=== PATIENT | female | born 1940 | race Caucasian/White ===

== ENCOUNTER 2017-10-07 10:25 | Inpatient (IN) | payer BC, OTHER ==
[2017-10-07] MEDS ORDERED: morphine CARPU-JECT 4 MG/1 ML DISP.SYRIN IVPUSH ONE ×2 (11:23→14:10)
--- NOTE | 2017-10-07 11:31 | PDOC ---
History of Present Illness - General Chief Complaint: Pain Stated Complaint: HIP PAIN Time Seen by Provider: 10/07/17 10:46 History Source: Patient, Spouse - History of Present Illness Occurred: reports: this morning Lower Extremity Pain Location: right: hip Method of Injury: Yes: fell Past History - Past Medical History Allergies/Adverse Reactions: Allergies Allergy/AdvReac Type Severity Reaction Status Date / Time No Known Allergies Allergy Verified 11/09/15 10:30 Home Medications: Ambulatory Orders Aspirin [ASA -] 81 mg PO DAILY 08/16/15 Baclofen 10 mg PO BID 08/16/15 Simvastatin [Zocor -] 40 mg PO DAILY 08/16/15 Diazepam [Valium] 5 mg PO BID PRN 08/18/15 Teriflunomide [Aubagio] 7 mg PO DAILY 08/18/15 Calcium Citrate/Vitamin D3 [Citracal + D Caplet] 1 each PO DAILY 11/09/15 Cholecalciferol (Vitamin D3) [D3 Dots] 2,000 unit PO DAILY 11/09/15 Duloxetine HCl [Cymbalta] 60 mg PO DAILY 11/09/15 Ibuprofen [Advil -] 200 mg PO TID PRN 11/09/15 Ibuprofen/Diphenhydramine Cit [Advil Pm Caplet] 2 each PO HS PRN 11/09/15 COPD: No Other medical history: MS - Surgical History Orthopedic Surgery: Yes (bilater total hip) - Suicide/Smoking/Psychosocial Hx Smoking History: Former smoker Have you smoked in the past 12 months: No Number of Cigarettes Smoked Daily: 2 Information on smoking cessation initiated: No 'Breaking Loose' booklet given: 11/09/15 Hx Alcohol Use: No Drug/Substance Use Hx: No Substance Use Type: None Review of Systems - Review of Systems Constitutional: No: Chills, Fever Respiratory: No: Shortness of Breath Cardiac (ROS): No: Chest Pain, Lightheadedness, Palpitations, Syncope ABD/GI: No: Nausea, Vomiting Musculoskeletal: Yes: Joint Pain, Other (RLE externally rotated and shortened, NVI) Neurological: No: Headache, Dizziness *Physical Exam - Vital Signs Last Vital Signs Temp Pulse Resp BP Pulse Ox 96.3 F L 109 H 20 89/51 97 10/07/17 10:48 10/07/17 10:48 10/07/17 10:48 10/07/17 10:48 10/07/17 10:48 ED Treatment Course - LABORATORY CBC & Chemistry Diagram: 10/07/17 11:50 10/07/17 11:50 - RADIOLOGY Radiology Studies Ordered: Category Date Time Status HEAD CT WITHOUT CONTRAST [CT] Stat CT Scan 10/07/17 11:23 Ordered HIP & PELVIS-LEFT [RAD] Stat Radiology 10/07/17 11:23 Ordered HIP & PELVIS-RIGHT [RAD] Stat Radiology 10/07/17 11:23 Ordered SPINE-LUMBAR SACRAL [RAD] Stat Radiology 10/07/17 11:24 Ordered Medical Decision Making - Medical Decision Making 10/07/17 11:24 76 yo F, h/o MS, HTN, on asa, s/p R THR C/B prosthetic dislocation in 2014, here w/ 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 Pt states while reaching for her walker this am, she lost balance and fell, striking head and injuring R hip, unable to bear weight since. No LOC, ACHARYA, dizziness, n/v/ Denies any other injuries. 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 Patient's last hemoglobin on file from 2014 was 12. Will guaiac and thomason-scan rule out bleed in setting of fall. O+ on T&S. Will transfuse 2 units per ED attg. No h/o CHF. 10/07/17 13:38 Significant displaced fracture of R mid femur on x-ray. Dr. De Paz of ortho aware and will come see patient 10/07/17 13:52 CT head, chest, abdomen and pelvis revealed no evidence of bleed. Patient evaluated by ortho whose post plan is to take patient to the OR for ORIF once patient is medically cleared. Unable to guaiac at this time as positioning difficult given significant RLE pain despite morphine. Will discuss case with hospitalist and admit 10/07/17 14:05 10/07/17 14:52 Dr. Nice in ED evaluating patient, pt admitted *DC/Admit/Observation/Transfer Diagnosis at time of Disposition: Fall Qualifiers: Encounter type: initial encounter Qualified Code(s): W19.XXXA - Unspecified fall, initial encounter Femoral fracture Qualifiers: Encounter type: initial encounter Femur location: shaft Fracture type: closed Fracture morphology: transverse Fracture alignment: displaced Laterality: right Qualified Code(s): S72.321A - Displaced transverse fracture of shaft of right femur, initial encounter for closed fracture Anemia Qualifiers: Anemia type: unspecified type Qualified Code(s): D64.9 - Anemia, unspecified - Discharge Dispostion Condition at time of disposition: Fair Admit: Yes - Referrals Referrals: Baldo Delcid MD [Primary Care Provider] - - Patient Instructions - Post Discharge Activity
[2017-10-07] MEDS ORDERED: SODIUM CHLORIDE 500 ML IV STA (11:36)
[2017-10-07] MEDS ORDERED: MORPHINE SULFATE 10 MG/1 ML *VIAL ONE ×2 (11:57→14:17)
[2017-10-07 12:09] LABS: BASO % 0.5 % (0-2.0); HEMATOCRIT 12.6 % (32.4-45.2); LYMPH % 4.1 % (8-40); MCH 21.7 pg (25.7-33.7); MCHC 30.6 g/dl (32.0-36.0); MEAN CELL VOLUME 70.9 fl (80-96); MEAN PLT VOLUME 7.6 fl (7.5-11.1); MONO % 5.7 % (3.8-10.2); NEUT % 89.7 % (42.8-82.8); PLATELET COUNT 246 K/MM3 (134-434); RBC 1.78 M/mm3 (3.60-5.2); RDW 17.4 % (11.6-15.6); WHITE BLOOD COUNT 17.1 K/mm3 (4.0-10.0)
[2017-10-07 12:16] LABS: ADD RBC MORPHOLOGY YES
[2017-10-07 12:17] LABS: HEMOGLOBIN 3.9 GM/dL (10.7-15.3)
[2017-10-07 12:34] LABS: ALBUMIN 3.2 g/dl (3.4-5.0); ALK PHOS 58 U/L (45-117); ANION GAP 12 (8-16); BILIRUBIN,TOTAL 0.4 mg/dL (0.2-1.0); BLOOD UREA NITROGEN 53 mg/dL (7-18); CALCIUM 8.2 mg/dL (8.5-10.1); CHLORIDE 106 mmol/L (98-107); CO2 20 mmol/L (21-32); GLUCOSE,RANDOM 116 mg/dL (74-106); POTASSIUM 5.1 mmol/L (3.5-5.1); SGOT/AST 22 U/L (15-37); SGPT/ALT 23 U/L (12-78); SODIUM 138 mmol/L (136-145); TOT PROT 5.6 g/dl (6.4-8.2)
[2017-10-07 12:36] LABS: INR 1.05 (0.82-1.09); PROTHROMBIN TIME (PATIENT) 11.9 SEC (9.98-11.88)
--- NOTE | 2017-10-07 13:45 | CONSULT ---
Consult - text type - Consultation Consultation Note: full consult dictated Imp; right periprosthetic femur fx plan: --> OR for ORIF when medically cleared
[2017-10-07 13:57] LABS: URINE APPEARANCE CLOUDY; URINE BILIRUBIN NEGATIVE (NEGATIVE); URINE BLOOD NEGATIVE (NEGATIVE); URINE COLOR DKYELLOW; URINE GLUCOSE (UA) NEGATIVE (NEGATIVE); URINE KETONE TRACE (NEGATIVE); URINE LEUK ESTERASE NEGATIVE (NEGATIVE); URINE NITRITE NEGATIVE (NEGATIVE); URINE PROTEIN NEGATIVE (NEGATIVE); URINE UROBILINOGEN NEGATIVE mg/dL (0.2-1.0)
--- NOTE | 2017-10-07 14:44 | CONS ---
DATE OF CONSULTATION: 10/07/2017 Patient well known to me status post right total hip replacement done by another surgeon about 5 years ago, had a dislocated hip a few years ago which was reduced in our emergency room. Patient slipped and fell and injured her right femur, is complaining of pain and inability to walk, with swelling. On physical exam she has a great deal of swelling and obvious deformity of her right thigh, increased pain with any motion of her thigh. Good motion of the ankle and toes, otherwise neurovascularly intact. X-rays show a long oblique periprosthetic fracture of the midaspect of the femoral shaft. The femoral component appears to be well seated. IMPRESSION: Right femoral periprosthetic femoral shaft fracture with an intact component. PLAN: Risks, benefits, and alternatives discussed with patient and with in great detail. Patient will need open reduction, internal fixation of this fracture. As patient's hematocrit was only 12, patient needs to be tuned up prior to surgery with blood, hydration. Once cleared, we will book the patient for ORIF. JUAN DAVID POWELL M.D. [id number]
[2017-10-07 16:26] LABS: HEMOGLOBIN 8.5 GM/dL (10.7-15.3); MCHC 32.6 g/dl (32.0-36.0); MEAN CELL VOLUME 79.8 fl (80-96); MEAN PLT VOLUME 7.7 fl (7.5-11.1); PLATELET COUNT 213 K/MM3 (134-434); RBC 3.26 M/mm3 (3.60-5.2); RDW 18.4 % (11.6-15.6); WHITE BLOOD COUNT 16.7 K/mm3 (4.0-10.0)
--- NOTE | 2017-10-07 17:05 | HP ---
PCP: Baldo Delcid CHIEF COMPLAINT: Right hip and groin pain HISTORY OF PRESENT ILLNESS: This is a 76 year old woman who comes to the ER complaining of pain in her right hip and right groin. She says she fell at home 2 days ago landing on her back. She denies head trauma, loss of consciousness, but she does not remember much about the event. She had some low back pain and needed her 's assistance to get up. Since then, she has developed pain in her right hip and groin. She usually ambulates with a walker. In the ED, she was found to have a periprosthetic right femur fracture and hemoglobin 3.9. She takes baby aspirin daily and uses occasional ibuprofen. She denies melena, rectal bleeding. She has lost 10 lbs over the last year. PAST MEDICAL HISTORY: Multiple sclerosis, HTN, hyperlipidemia, depression, anxiety PAST SURGICAL HISTORY: Right total hip replacement Allergies No Known Allergies Allergy (Verified 11/09/15 10:30) HOME MEDICATIONS: Home Medications Medication Instructions Recorded Aspirin [ASA -] 81 mg PO DAILY 08/16/15 Baclofen 10 mg PO BID 08/16/15 Simvastatin [Zocor -] 40 mg PO DAILY 08/16/15 Diazepam [Valium] 5 mg PO BID PRN 08/18/15 Teriflunomide [Aubagio] 7 mg PO DAILY 08/18/15 Calcium Citrate/Vitamin D3 1 each PO DAILY 11/09/15 [Citracal + D Caplet] Cholecalciferol (Vitamin D3) [D3 2,000 unit PO DAILY 11/09/15 Dots] Duloxetine HCl [Cymbalta] 60 mg PO DAILY 11/09/15 Ibuprofen [Advil -] 200 mg PO TID PRN 11/09/15 Ibuprofen/Diphenhydramine Cit 2 each PO HS PRN 11/09/15 [Advil Pm Caplet] Social History: Smoking: Smokes 3 cigarettes/day Alcohol: Denies Drugs: Denies Recent Travel: None Family History: Non-contributory REVIEW OF SYSTEMS CONSTITUTIONAL: Absent: fever, chills, diaphoresis, generalized weakness, malaise, loss of appetite, weight change HEENT: Absent: rhinorrhea, nasal congestion, throat pain, throat swelling, difficulty swallowing, mouth swelling, ear pain, eye pain, visual changes CARDIOVASCULAR: Absent: chest pain, syncope, palpitations, lightheadedness, peripheral edema RESPIRATORY: Absent: cough, shortness of breath, dyspnea with exertion, orthopnea, wheezing, stridor, hemoptysis GASTROINTESTINAL: Absent: abdominal pain, abdominal distension, nausea, vomiting , diarrhea, constipation, melena, hematochezia GENITOURINARY: Absent: dysuria, frequency, urgency, hesitancy, hematuria, flank pain MUSCULOSKELETAL: Present: Right hip pain, right groin pain. Absent: myalgia, joint swelling, back pain, neck pain SKIN: Absent: rash, itching, pallor HEMATOLOGIC/IMMUNOLOGIC: Absent: easy bleeding, easy bruising, lymphadenopathy, frequent infections ENDOCRINE: Present: unexplained weight loss. Absent: unexplained weight gain, heat intolerance, cold intolerance NEUROLOGIC: Absent: headache, focal weakness or paresthesias, dizziness, unsteady gait, seizure, mental status changes, bladder or bowel incontinence PSYCHIATRIC: Absent: anxiety, depression, suicidal or homicidal ideation, hallucinations. PHYSICAL EXAMINATION Vital Signs - 24 hr 10/07/17 10/07/17 10/07/17 10:48 13:36 13:40 Temperature 96.3 F L 98.7 F Pulse Rate 109 H Pulse Rate [ 101 H 104 H Apical] Respiratory 20 16 12 Rate Blood Pressure 89/51 Blood Pressure 99/51 99/51 [Right Arm] O2 Sat by Pulse 97 95 Oximetry (%) 10/07/17 16:21 Temperature Pulse Rate Pulse Rate [ 95 H Apical] Respiratory 16 Rate Blood Pressure Blood Pressure 105/46 [Right Arm] O2 Sat by Pulse 100 Oximetry (%) GENERAL: Awake, alert, and fully oriented, in no acute distress, pale, generalized muscle wasting. HEAD: Normal with no signs of trauma. EYES: Pupils equal, round and reactive to light, extraocular movements intact, sclerae anicteric, conjunctivae pale. EARS, NOSE, THROAT: Ears normal, nares patent, oropharynx clear without exudates. Moist mucous membranes. NECK: Normal range of motion, supple without lymphadenopathy, JVD, or masses. LUNGS: Breath sounds equal, clear to auscultation bilaterally. No wheezes, and no crackles. No accessory muscle use. HEART: Tachycardic, normal S1 and S2 without murmur, rub or gallop. ABDOMEN: Soft, nontender, not distended, normoactive bowel sounds, no guarding, no rebound, no masses. No hepatomegaly or splenomegaly. MUSCULOSKELETAL: Right leg shortened and externally rotated. No CVA tenderness. UPPER EXTREMITIES: 2+ pulses, warm, well-perfused. No cyanosis. No clubbing. No peripheral edema. LOWER EXTREMITIES: 2+ pulses, warm, well-perfused. No calf tenderness. No peripheral edema. NEUROLOGICAL: Cranial nerves II-XII intact. Normal speech. Normal gait. PSYCHIATRIC: Cooperative. Good eye contact. Appropriate mood and affect. SKIN: Warm, dry, normal turgor, no rashes or lesions noted, normal capillary refill. Laboratory Results - last 24 hr 10/07/17 10/07/17 10/07/17 11:22 11:50 11:50 WBC 17.1 H D RBC 1.78 L D Hgb 3.9 L* D Hct 12.6 L MCV 70.9 L MCH 21.7 L MCHC 30.6 L RDW 17.4 H D Plt Count 246 MPV 7.6 Neutrophils % 89.7 H D Lymphocytes % 4.1 L D Monocytes % 5.7 Eosinophils % 0.0 D Basophils % 0.5 PT with INR INR Sodium 138 Potassium 5.1 Chloride 106 Carbon Dioxide 20 L Anion Gap 12 BUN 53 H Creatinine 2.0 H Creat Clearance w eGFR 24.29 Random Glucose 116 H Calcium 8.2 L Total Bilirubin 0.4 AST 22 ALT 23 Alkaline Phosphatase 58 Total Protein 5.6 L Albumin 3.2 L Urine Color Urine Appearance Urine pH Ur Specific [place] Urine Protein Urine Glucose (UA) Urine Ketones Urine Blood Urine Nitrite Urine Bilirubin Urine Urobilinogen Ur Leukocyte Esterase Blood Type O POSITIVE Antibody Screen Negative Crossmatch See Detail 10/07/17 10/07/17 11:50 11:50 WBC RBC Hgb Hct MCV MCH MCHC RDW Plt Count MPV Neutrophils % Lymphocytes % Monocytes % Eosinophils % Basophils % PT with INR 11.90 H INR 1.05 Sodium Potassium Chloride Carbon Dioxide Anion Gap BUN Creatinine Creat Clearance w eGFR Random Glucose Calcium Total Bilirubin AST ALT Alkaline Phosphatase Total Protein Albumin Urine Color Dkyellow Urine Appearance Cloudy Urine pH 5.0 Ur Specific [place] 1.020 Urine Protein Negative Urine Glucose (UA) Negative Urine Ketones Trace H Urine Blood Negative Urine Nitrite Negative Urine Bilirubin Negative Urine Urobilinogen Negative Ur Leukocyte Esterase Negative Blood Type Antibody Screen Crossmatch Chest x-ray: No acute pathology. Head CT: Moderate atrophy. Moderate soft tissue swelling/hematoma over left zygomatic arch and left lateral aspect of the cheek without fracture. CT chest/abdomen/pelvis: Mild COPD. ASSESSMENT/PLAN: This is a 76 year old woman with a history of MS, HTN, hyperlipidemia, depression, anxiety who presents to the ED today with right hip and right groin pain 2 days after a fall at home. She was found to have a periprosthetic right femur fracture, hemoglobin 3.9, BUN 53, creatinine 2.0. 1. Periprosthetic right femur fracture - Orthopedic surgery consult appreciated - Will need ORIF - Transfuse - Hold aspirin, ibuprofen - Pain control 2. Severe microcytic anemia with unexplained weight loss - Transfuse PRBCs prior to surgery - Check iron studies - Check stool occult blood - Hold aspirin, ibuprofen - Start Protonix - Will need GI evaluation 3. Acute kidney injury - Likely secondary to hypoperfusion - IV fluid, transfuse PRBCs - Hold ibuprofen - Monitor BUN, creatinine 4. Hypertension - On no medication 5. Hyperlipidemia - Continue Zocor 6. Multiple sclerosis - Continue Aubagio, Baclofen 7. Depression/anxiety - Continue Valium, Cymbalta
[2017-10-07] MEDS ORDERED: ACETAMINOPHEN 325 MG TABLET (FP) PO PRN (17:11)
[2017-10-07] MEDS ORDERED: ONDANSETRON 4 MG/2 ML VIAL IVPUSH PRN (17:11)
[2017-10-07] MEDS ORDERED: diazePAM 5 MG TABLET PO PRN (17:23)
[2017-10-07] MEDS: SODIUM CHLORIDE 1,000 ML IV SCH (17:51)
[2017-10-07] MEDS ORDERED: PANTOPRAZOLE 40 MG TABLET (FP) ONE (20:51)
[2017-10-07] MEDS ORDERED: ATORVASTATIN CA 40 MG TABLET (FP) ONE (20:51)
[2017-10-07] MEDS ORDERED: BACLOFEN 10 MG TABLET (FP) ONE (20:51)
[2017-10-07 20:59] LABS: ANISOCYTOSIS 3+; MACROCYTOSIS 1+; OVALOCYTE 1+
[2017-10-07 21:00] LABS: PLATELET ESTIMATE ADEQUATE; TOXIC GRANULATION 1+
[2017-10-07] MEDS: BACLOFEN 10 MG TABLET (FP) PO SCH (21:17)
[2017-10-07] MEDS: ATORVASTATIN CA 20 MG TABLET (FP) PO SCH (21:17)
[2017-10-07] MEDS: PANTOPRAZOLE 40 MG TABLET (FP) PO SCH (21:17)
[2017-10-07] MEDS: MORPHINE SULFATE 10 MG/1 ML *VIAL IVPUSH PRN (23:38)
[2017-10-08 00:19] VITALS: BMI 16.5
[2017-10-08 08:48] LABS: BASO % 0.5 % (0-2.0); EOS % 0.2 % (0-4.5); HEMATOCRIT 23.1 % (32.4-45.2); HEMOGLOBIN 7.5 GM/dL (10.7-15.3); LYMPH % 6.5 % (8-40); MCH 25.8 pg (25.7-33.7); MCHC 32.6 g/dl (32.0-36.0); MEAN CELL VOLUME 79.2 fl (80-96); MEAN PLT VOLUME 7.8 fl (7.5-11.1); MONO % 10.6 % (3.8-10.2); NEUT % 82.2 % (42.8-82.8); PLATELET COUNT 190 K/MM3 (134-434); RBC 2.92 M/mm3 (3.60-5.2); RDW 17.9 % (11.6-15.6); WHITE BLOOD COUNT 12.9 K/mm3 (4.0-10.0)
[2017-10-08 09:04] LABS: ANION GAP 10 (8-16); BLOOD UREA NITROGEN 43 mg/dL (7-18); CALCIUM 7.9 mg/dL (8.5-10.1); CHLORIDE 111 mmol/L (98-107); CO2 22 mmol/L (21-32); CREATININE 1.2 mg/dL (0.55-1.02); GLUCOSE,RANDOM 85 mg/dL (74-106); POTASSIUM 4.3 mmol/L (3.5-5.1); SODIUM 143 mmol/L (136-145)
[2017-10-08] MEDS ORDERED: [UNRECOGNIZED DRUG - OTHER] PO SCH (10:00)
[2017-10-08] MEDS ORDERED: VITAMIN D3 PO SCH (10:00)
[2017-10-08] MEDS ORDERED: CALCIUM CITRATE PO SCH (10:00)
--- NOTE | 2017-10-08 10:00 | PN ---
Physical Exam: SUBJECTIVE: Patient seen and examined OBJECTIVE: hmg/hct recheck @ 12p : 6.6/20.1, 2 unit of prbc ordered given 1 units of platelets for chronic home ASA use No physical signs of hematoma on skin Vital Signs Period Temp Pulse Resp BP Sys/Obrien Pulse Ox Last 24 Hr 96.3 F-98.7 F 89-109 12-20 89-120/44-63 95-100 GENERAL: The patient is awake, alert, and fully oriented, in no acute distress. HEAD: Normal with no signs of trauma. EYES: PERRL, extraocular movements intact, sclera anicteric, conjunctiva clear. No ptosis. ENT: Ears normal, nares patent, oropharynx clear without exudates, moist mucous membranes. NECK: Trachea midline, full range of motion, supple. LUNGS: Breath sounds equal, clear to auscultation bilaterally, no wheezes, no crackles, no accessory muscle use. HEART: Regular rate and rhythm ABDOMEN: Soft, nontender, nondistended, normoactive bowel sounds, no guarding, no rebound, no hepatosplenomegaly, no masses. EXTREMITIES: 2+ pulses, warm, well-perfused, no edema. NEUROLOGICAL: Normal speech, gait not observed. PSYCH: Normal mood, normal affect. Laboratory Results - last 24 hr 10/07/17 10/07/17 10/07/17 11:22 11:50 11:50 WBC 17.1 H D RBC 1.78 L D Hgb 3.9 L* D Hct 12.6 L MCV 70.9 L MCH 21.7 L MCHC 30.6 L RDW 17.4 H D Plt Count 246 MPV 7.6 Neutrophils % 89.7 H D Lymphocytes % 4.1 L D Monocytes % 5.7 Eosinophils % 0.0 D Basophils % 0.5 Hypochromia 3+ Toxic Granulation 1+ Platelet Estimate Adequate Platelet Comment Rare giant plts Polychromasia 1+ Poikilocytosis 3+ Anisocytosis 3+ Microcytosis 2+ Macrocytosis 1+ Spherocytes 1+ Ovalocytes 1+ Fragmented RBCs 1+ PT with INR INR Sodium 138 Potassium 5.1 Chloride 106 Carbon Dioxide 20 L Anion Gap 12 BUN 53 H Creatinine 2.0 H Creat Clearance w eGFR 24.29 Random Glucose 116 H Calcium 8.2 L Ferritin Total Bilirubin 0.4 AST 22 ALT 23 Alkaline Phosphatase 58 Creatine Kinase Creatine Kinase Index CK-MB (CK-2) Total Protein 5.6 L Albumin 3.2 L Urine Color Urine Appearance Urine pH Ur Specific [place] Urine Protein Urine Glucose (UA) Urine Ketones Urine Blood Urine Nitrite Urine Bilirubin Urine Urobilinogen Ur Leukocyte Esterase Blood Type O POSITIVE Antibody Screen Negative Crossmatch See Detail 10/07/17 10/07/17 10/07/17 11:50 11:50 16:13 WBC 16.7 H RBC 3.26 L D Hgb 8.5 L D Hct 26.0 L D MCV 79.8 L D MCH 26.0 D MCHC 32.6 RDW 18.4 H Plt Count 213 MPV 7.7 Neutrophils % Lymphocytes % Monocytes % Eosinophils % Basophils % Hypochromia Toxic Granulation Platelet Estimate Platelet Comment Polychromasia Poikilocytosis Anisocytosis Microcytosis Macrocytosis Spherocytes Ovalocytes Fragmented RBCs PT with INR 11.90 H INR 1.05 Sodium Potassium Chloride Carbon Dioxide Anion Gap BUN Creatinine Creat Clearance w eGFR Random Glucose Calcium Ferritin Total Bilirubin AST ALT Alkaline Phosphatase Creatine Kinase Creatine Kinase Index CK-MB (CK-2) Total Protein Albumin Urine Color Dkyellow Urine Appearance Cloudy Urine pH 5.0 Ur Specific [place] 1.020 Urine Protein Negative Urine Glucose (UA) Negative Urine Ketones Trace H Urine Blood Negative Urine Nitrite Negative Urine Bilirubin Negative Urine Urobilinogen Negative Ur Leukocyte Esterase Negative Blood Type Antibody Screen Crossmatch 10/07/17 10/08/17 10/08/17 20:40 07:30 07:30 WBC 12.9 H RBC 2.92 L Hgb 7.5 L D Hct 23.1 L MCV 79.2 L MCH 25.8 MCHC 32.6 RDW 17.9 H Plt Count 190 MPV 7.8 Neutrophils % 82.2 Lymphocytes % 6.5 L D Monocytes % 10.6 H D Eosinophils % 0.2 D Basophils % 0.5 Hypochromia Toxic Granulation Platelet Estimate Platelet Comment Polychromasia Poikilocytosis Anisocytosis Microcytosis Macrocytosis Spherocytes Ovalocytes Fragmented RBCs PT with INR INR Sodium 143 Potassium 4.3 Chloride 111 H Carbon Dioxide 22 Anion Gap 10 BUN 43 H Creatinine 1.2 H Creat Clearance w eGFR Random Glucose 85 Calcium 7.9 L Ferritin 7.764 Total Bilirubin AST ALT Alkaline Phosphatase Creatine Kinase 292 H Creatine Kinase Index 1.2 CK-MB (CK-2) 3.780 H Total Protein Albumin Urine Color Urine Appearance Urine pH Ur Specific [place] Urine Protein Urine Glucose (UA) Urine Ketones Urine Blood Urine Nitrite Urine Bilirubin Urine Urobilinogen Ur Leukocyte Esterase Blood Type Antibody Screen Crossmatch 10/08/17 07:30 WBC RBC Hgb Hct MCV MCH MCHC RDW Plt Count MPV Neutrophils % Lymphocytes % Monocytes % Eosinophils % Basophils % Hypochromia Toxic Granulation Platelet Estimate Platelet Comment Polychromasia Poikilocytosis Anisocytosis Microcytosis Macrocytosis Spherocytes Ovalocytes Fragmented RBCs PT with INR INR Sodium Potassium Chloride Carbon Dioxide Anion Gap BUN Creatinine Creat Clearance w eGFR Random Glucose Calcium Ferritin Total Bilirubin AST ALT Alkaline Phosphatase Creatine Kinase Cancelled Creatine Kinase Index CK-MB (CK-2) Total Protein Albumin Urine Color Urine Appearance Urine pH Ur Specific [place] Urine Protein Urine Glucose (UA) Urine Ketones Urine Blood Urine Nitrite Urine Bilirubin Urine Urobilinogen Ur Leukocyte Esterase Blood Type Antibody Screen Crossmatch Active Medications Generic Name Dose Route Start Last Admin Trade Name Freq PRN Reason Stop Dose Admin Acetaminophen 650 mg 10/07/17 17:11 Tylenol - PO Q4H PRN PAIN OR FEVER Atorvastatin Calcium 20 mg 10/07/17 22:00 10/07/17 21:17 Lipitor - PO 20 mg HS SEAMUS Administration Baclofen 10 mg 10/07/17 22:00 10/07/17 21:17 Lioresal - PO 10 mg BID SEAMUS Administration Cholecalciferol 2,000 unit 10/08/17 10:00 Vitamin D3 - PO DAILY [facility] Diazepam 5 mg 10/07/17 17:23 Valium - PO BID PRN ANXIETY Duloxetine HCl 60 mg 10/08/17 10:00 Cymbalta - PO DAILY [facility] Sodium Chloride 1,000 mls @ 83 mls/hr 10/07/17 17:15 10/07/17 17:51 Normal Saline - IV 83 mls/hr ASDIR SEAMUS Administration Morphine Sulfate 2 mg 10/07/17 17:19 10/07/17 23:38 Morphine Injection - IVPUSH 2 mg Q4H PRN Administration PAIN LEVEL 6-10 Non-Formulary Medication 1 each 10/08/17 10:00 Calcium Citrate/Vitamin D3 [Citracal + D Caplet] PO DAILY SEAMUS Non-Formulary Medication 7 mg 10/08/17 10:00 Teriflunomide [Aubagio] PO DAILY SEAMUS Ondansetron HCl 4 mg 10/07/17 17:11 Zofran Injection IVPUSH Q4H PRN NAUSEA Pantoprazole Sodium 40 mg 10/07/17 22:00 10/07/17 21:17 Protonix - PO 40 mg BID SEAMUS Administration ASSESSMENT/PLAN: Patient is a 76 year old female with a significant past medical history of MS ( using RW at home), hypertension, on daily ASA 81mg, s/p R THR C/B prosthetic dislocation in 2014. Patient presents to the ER on with an unwitnessed fall when attempting to ambulate. Pt states while reaching for her walker when she lost balance and fell, hitting her head and landing on her right hip. She denies any LOC, dizziness, or chest pain. Denies any other injuries. Denies any dark or black stools prior to the fall. Imaging: Hip xray: displaced fracture of R mid femur on x-ray. CT abd/pelviis: No signs of intraabdominal organ injury or acute pathology within the abdomen or pelvis head CT: negative Skeletal: Right Yanira prostetetic femur fracture, acute No hematoma seen on physical exam, CT shows no intraabdominal organ injury or acute pathology within the abdomen or pelvis Patient to go to the OR for ORIF with Dr. De Paz Found to have critical hmg/hct of 3.9/12.6 on admission, transfused 2 units of prbc. Repeat hmg/hct this afternoon hmg/hct 6.6/20.1. Will transfuse 2 more units of prbc now 1 unit of platelets given for chronic ASA use Monitor cbc after 2 unit of prbc, transfuse if hmg/hct <8 Recheck CBC at 11pm GI: GI bleed, acute +guiac stools Start Protonix drip EGD as per GI Clear liquid diet GI following F.E.N. Fluids NS @ 83/cc/hr Electrolyes: monitor Nutrition: clears Prophylaxis: DVT: none d/t low hmg/hct GI: Protonix drip Disposition: full code. Visit type - Emergency Visit Emergency Visit: Yes ED Registration Date: 10/07/17 Care time: The patient presented to the Emergency Department on the above date and was hospitalized for further evaluation of their emergent condition. - New Patient This patient is new to me today: Yes Date on this admission: 10/08/17 - Critical Care Critical Care patient: No - Discharge Referral Referred to [facility] Med P.C.: No
[2017-10-08] MEDS: SODIUM CHLORIDE 1,000 ML IV SCH ×3 (10:01→22:05)
[2017-10-08] MEDS: CHOLECALCIFEROL (VITAMIN D3) 1,000 UNIT TABLET (FP) PO SCH (10:02)
[2017-10-08] MEDS: DULoxetine HCL 30 MG CAPSULE.DR (FP) PO SCH (10:02)
[2017-10-08] MEDS: BACLOFEN 10 MG TABLET (FP) PO SCH ×2 (10:02→21:13)
[2017-10-08] MEDS: PANTOPRAZOLE 40 MG TABLET (FP) PO SCH (10:02)
--- NOTE | 2017-10-08 12:21 | EKG ---
Test Reason : Blood Pressure : / mmHG Vent. Rate : 105 BPM Atrial Rate : 105 BPM P-R Int : 132 ms QRS Dur : 080 ms QT Int : 362 ms P-R-T Axes : 000 078 064 degrees QTc Int : 478 ms SINUS TACHYCARDIA OTHERWISE NORMAL ECG WHEN COMPARED WITH ECG OF 19-AUG-2015 15:14, NO SIGNIFICANT CHANGE WAS FOUND Confirmed by MD LEXI, SON ([id number]) on 10/08/2017 12:20:51 PM Referred By: Confirmed By:SON ELLIOTT MD
[2017-10-08 13:07] LABS: BASO % 0.3 % (0-2.0); EOS % 0.1 % (0-4.5); HEMATOCRIT 20.1 % (32.4-45.2); LYMPH % 6.8 % (8-40); MCH 25.6 pg (25.7-33.7); MCHC 32.8 g/dl (32.0-36.0); MEAN PLT VOLUME 7.2 fl (7.5-11.1); MONO % 9.8 % (3.8-10.2); PLATELET COUNT 239 K/MM3 (134-434); RBC 2.58 M/mm3 (3.60-5.2); RDW 17.9 % (11.6-15.6); WHITE BLOOD COUNT 13.5 K/mm3 (4.0-10.0)
[2017-10-08 13:29] LABS: HEMOGLOBIN 6.6 GM/dL (10.7-15.3)
[2017-10-08] MEDS: MORPHINE SULFATE 10 MG/1 ML *VIAL IVPUSH PRN (14:00)
[2017-10-08] MEDS ORDERED: PANTOPRAZOLE SODIUM 80 MG in SODIUM CHLORIDE 100 ML IVPB SCH (16:00)
--- NOTE | 2017-10-08 16:00 | CON.GI ---
Consult Consult Specialty:: Gastroenterology for Dr Licea Referred by:: Dr. Jane Reason for Consultation:: Anemia - History of Present Illness Chief Complaint: RLE fracture after a fall at home. History of Present Illness: 76F fell at home sustaining a right hip fracture. She is found to have a Hb of 3.5 but denies melena, loose stools or overt rectal bleeding. No hematemesis. She tells me that she had a GI bleed remotely and had both an EGD and a colonoscopy with Dr Delcid. Her sister has colon cancer. She denies abdominal pain, dysphagia or early satiety. She has multiple sclerosis and uses an ambulator. She takes aspirin daily - History Source History Provided By: Patient Limitations to Obtaining History: Poor Historian - Past Medical History INSTRUCTIONAL DESIGN TECHNOLOGIST: Yes: Multiple Sclerosis Cardio/Vascular: Yes: Hyperlipdemia Pulmonary: Yes: COPD Gastrointestinal: Yes: GI Bleed (remotely) - Past Surgical History Past Surgical History: Yes: Colonoscopy, Upper Endoscopy Additional Surgical History: Abdominoplasty. Right hip ORIF - Alcohol/Substance Use Hx Alcohol Use: No - Smoking History Smoking history: Current some day smoker Have you smoked in the past 12 months: No Aproximately how many cigarettes per day: 2 - Social History Usual Living Arrangement: With Spouse ADL: Family Assistance Place of : [facility] History of Recent Travel: No Home Medications - Allergies Allergies/Adverse Reactions: Allergies Allergy/AdvReac Type Severity Reaction Status Date / Time No Known Allergies Allergy Verified 11/09/15 10:30 - Home Medications Home Medications: Ambulatory Orders Aspirin [ASA -] 81 mg PO DAILY 08/16/15 Baclofen 10 mg PO BID 08/16/15 Simvastatin [Zocor -] 40 mg PO DAILY 08/16/15 Diazepam [Valium] 5 mg PO BID PRN 08/18/15 Teriflunomide [Aubagio] 7 mg PO DAILY 08/18/15 Calcium Citrate/Vitamin D3 [Citracal + D Caplet] 1 each PO DAILY 11/09/15 Cholecalciferol (Vitamin D3) [D3 Dots] 2,000 unit PO DAILY 11/09/15 Duloxetine HCl [Cymbalta] 60 mg PO DAILY 11/09/15 Ibuprofen [Advil -] 200 mg PO TID PRN 11/09/15 Family Disease History - Family Disease History Family Disease History: CA: Sister (has colon cancer), Other: Father ( 62 ? etiology), Mother ( natural causes on her 80s) Review of Systems - Review of Systems Constitutional: reports: No Symptoms Eyes: reports: No Symptoms HENT: reports: No Symptoms Neck: reports: No Symptoms Cardiovascular: reports: No Symptoms Respiratory: reports: No Symptoms Gastrointestinal: reports: No Symptoms Musculoskeletal: reports: No Symptoms Neurological: reports: No Symptoms Pain Intensity: 6 (right hip) Physical Exam-GI Vital Signs: Vital Signs Temperature 98.5 F 10/08/17 14:00 Pulse Rate 103 H 10/08/17 14:00 Respiratory Rate 20 10/08/17 14:00 Blood Pressure 113/51 10/08/17 14:00 O2 Sat by Pulse Oximetry (%) 96 10/08/17 09:00 CBC,CMP WBC 13.5 K/mm3 (4.0-10.0) H 10/08/17 12:40 RBC 2.58 M/mm3 (3.60-5.2) L 10/08/17 12:40 Hgb 6.6 GM/dL (10.7-15.3) L* D 10/08/17 12:40 Hct 20.1 % (32.4-45.2) L 10/08/17 12:40 MCV 78.0 fl (80-96) L 10/08/17 12:40 MCH 25.6 pg (25.7-33.7) L 10/08/17 12:40 MCHC 32.8 g/dl (32.0-36.0) 10/08/17 12:40 RDW 17.9 % (11.6-15.6) H 10/08/17 12:40 Plt Count 239 K/MM3 (134-434) D 10/08/17 12:40 MPV 7.2 fl (7.5-11.1) L 10/08/17 12:40 Neutrophils % 83.0 % (42.8-82.8) H 10/08/17 12:40 Lymphocytes % 6.8 % (8-40) L 10/08/17 12:40 Monocytes % 9.8 % (3.8-10.2) 10/08/17 12:40 Eosinophils % 0.1 % (0-4.5) 10/08/17 12:40 Basophils % 0.3 % (0-2.0) 10/08/17 12:40 Hypochromia 3+ 10/07/17 11:50 Toxic Granulation 1+ 10/07/17 11:50 Platelet Estimate Adequate 10/07/17 11:50 Platelet Comment Rare giant plts 10/07/17 11:50 Polychromasia 1+ 10/07/17 11:50 Poikilocytosis 3+ 10/07/17 11:50 Anisocytosis 3+ 10/07/17 11:50 Microcytosis 2+ 10/07/17 11:50 Macrocytosis 1+ 10/07/17 11:50 Spherocytes 1+ 10/07/17 11:50 Ovalocytes 1+ 10/07/17 11:50 Fragmented RBCs 1+ 10/07/17 11:50 Sodium 143 mmol/L (136-145) 10/08/17 07:30 Potassium 4.3 mmol/L (3.5-5.1) 10/08/17 07:30 Chloride 111 mmol/L (98-107) H 10/08/17 07:30 Carbon Dioxide 22 mmol/L (21-32) 10/08/17 07:30 Anion Gap 10 (8-16) 10/08/17 07:30 BUN 43 mg/dL (7-18) H 10/08/17 07:30 Creatinine 1.2 mg/dL (0.55-1.02) H 10/08/17 07:30 Creat Clearance w eGFR 24.29 (>60) 10/07/17 11:50 Random Glucose 85 mg/dL (74-106) 10/08/17 07:30 Calcium 7.9 mg/dL (8.5-10.1) L 10/08/17 07:30 Ferritin 7.764 ng/ml (6.9-282.5) 10/07/17 20:40 Total Bilirubin 0.4 mg/dL (0.2-1.0) 10/07/17 11:50 AST 22 U/L (15-37) 10/07/17 11:50 ALT 23 U/L (12-78) 10/07/17 11:50 Alkaline Phosphatase 58 U/L (45-117) 10/07/17 11:50 Creatine Kinase 292 IU/L (26-192) H 10/08/17 07:30 Creatine Kinase Index 1.2 % (0.0-5.0) 10/08/17 07:30 CK-MB (CK-2) 3.780 ng/mL (0.5-3.6) H 10/08/17 07:30 Total Protein 5.6 g/dl (6.4-8.2) L 10/07/17 11:50 Albumin 3.2 g/dl (3.4-5.0) L 10/07/17 11:50 Current Medications Generic Name Dose Route Start Last Admin Trade Name Freq PRN Reason Stop Dose Admin Acetaminophen 650 mg 10/07/17 17:11 Tylenol - PO Q4H PRN PAIN OR FEVER Atorvastatin Calcium 20 mg 10/07/17 22:00 10/07/17 21:17 Lipitor - PO 20 mg HS SEAMUS Administration Baclofen 10 mg 10/07/17 22:00 10/08/17 10:02 Lioresal - PO 10 mg BID SEAMUS Administration Cholecalciferol 2,000 unit 10/08/17 10:00 10/08/17 10:02 Vitamin D3 - PO 2,000 unit DAILY SEAMUS Administration Diazepam 5 mg 10/07/17 17:23 Valium - PO BID PRN ANXIETY Duloxetine HCl 60 mg 10/08/17 10:00 10/08/17 10:02 Cymbalta - PO 60 mg DAILY SEAMUS Administration Sodium Chloride 1,000 mls @ 83 mls/hr 10/07/17 17:15 10/08/17 10:01 Normal Saline - IV 83 mls/hr ASDIR SEAMUS Administration Pantoprazole Sodium 80 mg/ 100 mls @ 10 mls/hr 10/08/17 16:00 Sodium Chloride IVPB Q10H SEAMUS 8 MG/HR Morphine Sulfate 2 mg 10/07/17 17:19 10/08/17 14:00 Morphine Injection - IVPUSH 2 mg Q4H PRN Administration PAIN LEVEL 6-10 Non-Formulary Medication 1 each 10/08/17 10:00 Calcium Citrate/Vitamin D3 [Citracal + D Caplet] PO DAILY [facility] Non-Formulary Medication 7 mg 10/08/17 10:00 Teriflunomide [Aubagio] PO DAILY [facility] Ondansetron HCl 4 mg 10/07/17 17:11 Zofran Injection IVPUSH Q4H PRN NAUSEA Constitutional: Yes: Mild Distress Eyes: Yes: Conjunctiva Clear HENT: Yes: Atraumatic Neck: Yes: Supple Cardiovascular: Yes: Regular Rate and Rhythm Respiratory: Yes: CTA Bilaterally Gastrointestinal Inspection: Yes: Scars (healed arc like low abdominoplasty incision) ...Auscultate: Yes: Normoactive Bowel Sounds ...Palpate: Yes: Soft, Other (nontender) ...Percussion: Yes: Tympanitic ...Rectal Exam: Yes: Guaiac Positive (black strongly guaiac positive stool) Musculoskeletal: Yes: Other (no flank hematomas R hip splint) Labs: CBC, BMP 10/08/17 12:40 10/08/17 07:30 INR, PTT INR 1.05 (0.82-1.09) 10/07/17 11:50 Imaging - Results Cat Scan: Report Reviewed (Damir Pantoja Name: J[facility] DEPARTMENT OF RADIOLOGY Phys: Tania Stubbs : 1940 Age: 76 Sex: F [facility] Acct: [id number] Loc: [address] Exam Date: 10/07/17 Status: [place] [address] Unit Number: [id number] EXAM#: TYPE/EXAM: RESULT: CT/ABDOMEN PELVIS CT WITH CONTR CT/CHEST CT WITH CONTRAST HISTORY PROVIDED: Fall. Sequential axial images were obtained from the thoracic inlet through the symphysis pubis following the administration of intravenous contrast material. Examination of the mediastinum demonstrates no evidence of mediastinal masses, fluid collections or lymphadenopathy. The lung lovell are free of pulmonary masses, areas of acute consolidation or pleural effusions. Mild COPD changes are noted diffusely. The liver, spleen, pancreas, adrenal glands and kidneys demonstrate no significant abnormalities. The left kidney is somewhat atrophic. There are renal cysts present bilaterally with the largest cyst projecting from the upper pole of the right kidney measuring 4 cm. There is no evidence of intra-abdominal or retroperitoneal lymphadenopathy or fluid collections. Examination of the pelvis demonstrates no evidence of pelvic masses, fluid collections or lymphadenopathy. There is no evidence of fracture or acute bony abnormalities. The patient is S/P total right hip replacement. There is a moderate dextroscoliosis of the lumbar spine with extensive degenerative arthritic changes. IMPRESSION: 1. Mild COPD with no acute pathology within the chest. 2. No evidence of intra-abdominal organ injury or acute pathology within the abdomen or pelvis. Please see above discussion. Reported By: Manish Gayle MD 10/07/17 1350 Lola Stubbs Technologist: Justus Vaughan Transcribed Date/Time: 10/07/17 1350 Systems Eng: Manish Gayle Printed Date/Time: By: Signed by: Manish Gayle Signed on: 07-Oct-2017 13:51) Problem List - Problems (1) GI bleed Assessment/Plan: Melena suggests UGI bleeding likely related to aspirin induced gastritis, duodenitis and ulcer disease. I have discussed the potential need for an interventional EGD. I als told her that she will need a colonoscopy electively given the anemia and her sister's history. She will return to [facility] to have Dr. Delcid refer her for these but I have obtained an informed consent should this need this emergently. She has been made aware of the potential for such risks as perforation and hemorrhage with her nurse present. Would start PPI drip until the severity of bleeding is clarified. Discussed case with Dr. Aislinn Haines. Dr Licea will return on 10/08. Code(s): K92.2 - GASTROINTESTINAL HEMORRHAGE, UNSPECIFIED
[2017-10-08] MEDS: PANTOPRAZOLE SODIUM 160 MG in DEXTROSE 5%-WATER - 290 ML IVPB SCH (17:58)
[2017-10-08] MEDS: ATORVASTATIN CA 20 MG TABLET (FP) PO SCH (21:13)
--- NOTE | 2017-10-08 22:11 | CONSULT ---
Consult - text type - Consultation Consultation Note: AVSS COMFORTABLE HCT RISING WITH TRANSFUSION CALF SOFT AND NT IMP: SITUATION IMPROVING PLAN: CONTINUE TO TRANSFUSE, COURT TENTATIVELY SCHEDULED FOR TUESDAY
[2017-10-09 06:47] LABS: SERUM IRON SATURATION 14 % (15-55); TOTAL IRON BINDING CAPACITY 303 ug/dL (250-450); UIBC 261 ug/dL (118-369)
[2017-10-09 08:56] LABS: BASO % 0.3 % (0-2.0); EOS % 0.8 % (0-4.5); HEMATOCRIT 32.3 % (32.4-45.2); HEMOGLOBIN 10.8 GM/dL (10.7-15.3); LYMPH % 7.2 % (8-40); MCH 26.8 pg (25.7-33.7); MCHC 33.3 g/dl (32.0-36.0); MEAN CELL VOLUME 80.4 fl (80-96); MEAN PLT VOLUME 7.6 fl (7.5-11.1); MONO % 7.7 % (3.8-10.2); PLATELET COUNT 205 K/MM3 (134-434); RBC 4.02 M/mm3 (3.60-5.2); RETICULOCYTES 2.89 % (0.5-1.5); WHITE BLOOD COUNT 10.8 K/mm3 (4.0-10.0)
[2017-10-09 09:17] LABS: ALBUMIN 2.6 g/dl (3.4-5.0); ANION GAP 7 (8-16); BLOOD UREA NITROGEN 23 mg/dL (7-18); CALCIUM 7.4 mg/dL (8.5-10.1); CHLORIDE 110 mmol/L (98-107); CO2 21 mmol/L (21-32); CREATININE 0.9 mg/dL (0.55-1.02); GLUCOSE,RANDOM 85 mg/dL (74-106); MAGNESIUM 1.8 mg/dL (1.8-2.4); SGOT/AST 33 U/L (15-37); SGPT/ALT 34 U/L (12-78); SODIUM 138 mmol/L (136-145); TOT PROT 4.8 g/dl (6.4-8.2)
[2017-10-09 09:21] LABS: ALK PHOS 73 U/L (45-117)
[2017-10-09] MEDS: BACLOFEN 10 MG TABLET (FP) PO SCH ×2 (10:36→21:44)
[2017-10-09] MEDS: DULoxetine HCL 30 MG CAPSULE.DR (FP) PO SCH (10:36)
[2017-10-09] MEDS: CHOLECALCIFEROL (VITAMIN D3) 1,000 UNIT TABLET (FP) PO SCH (10:36)
--- NOTE | 2017-10-09 11:19 | PN ---
GI Progress Note Subjective: GI NOte: No bloody BMs overnight, in fact no BMs. No abdominal pain or vomiting. Going for hip fracture repair tomorrow. - Objective Vital Signs: Vital Signs Temperature 97.8 F 10/09/17 06:00 Pulse Rate 95 H 10/09/17 06:00 Respiratory Rate 20 10/09/17 06:00 Blood Pressure 150/87 10/09/17 06:00 O2 Sat by Pulse Oximetry (%) 96 10/08/17 22:00 Constitutional: Calm ...Auscultate: Yes: Normoactive Bowel Sounds ...Palpate: Yes: Soft, Other (nontender) Labs: CBC, BMP 10/09/17 07:30 10/09/17 07:30 INR, PTT INR 1.05 (0.82-1.09) 10/07/17 11:50 Laboratory Tests 10/07/17 10/07/17 10/08/17 11:50 16:13 07:30 Hgb 3.9 L* D 8.5 L D 7.5 L D Retic Count 10/08/17 10/09/17 12:40 07:30 Hgb 6.6 L* D 10.8 D Retic Count 2.89 H Problem List - Problems (1) GI bleed Assessment/Plan: UGI bleeding likely related to aspirin induced gastritis,duodenitis and ulcer disease. Will advance diet but continue PPI drip. Dr Licea will return on 10/08. Code(s): K92.2 - GASTROINTESTINAL HEMORRHAGE, UNSPECIFIED
--- NOTE | 2017-10-09 11:46 | PN ---
Physical Exam: SUBJECTIVE: Patient seen and examined at the bedside. She states she feels well, pain currently being controlled with morphine. OBJECTIVE: hmg/hct improved s/p 4 units of prbc received 1 unit of platelets yesterday +guaiac stool, on protonix drip OR tomorrow for right femur fracture repair Vital Signs Period Temp Pulse Resp BP Sys/Obrien Pulse Ox Last 24 Hr 97.8 F-98.5 F 88-103 18-20 113-150/51-87 96 GENERAL: The patient is awake, alert, and fully oriented, in no acute distress. HEAD: Normal with no signs of trauma. EYES: PERRL, extraocular movements intact, sclera anicteric, conjunctiva clear. No ptosis. ENT: Ears normal, nares patent, oropharynx clear without exudates, moist mucous membranes. NECK: Trachea midline, full range of motion, supple. LUNGS: Breath sounds equal, clear to auscultation bilaterally, no wheezes, no crackles, no accessory muscle use. HEART: Regular rate and rhythm ABDOMEN: Soft, nontender, nondistended, normoactive bowel sounds, no guarding, no rebound, no hepatosplenomegaly, no masses. EXTREMITIES: right femur fracture, bed bound NEUROLOGICAL: Normal speech, gait not observed. PSYCH: Normal mood, normal affect. Laboratory Results - last 24 hr 10/07/17 10/07/17 10/08/17 11:22 20:40 12:40 WBC 13.5 H RBC 2.58 L Hgb 6.6 L* D Hct 20.1 L MCV 78.0 L MCH 25.6 L MCHC 32.8 RDW 17.9 H Plt Count 239 D MPV 7.2 L Neutrophils % 83.0 H Lymphocytes % 6.8 L Monocytes % 9.8 Eosinophils % 0.1 Basophils % 0.3 Retic Count Sodium Potassium Chloride Carbon Dioxide Anion Gap BUN Creatinine Creat Clearance w eGFR Random Glucose Calcium Magnesium Iron 42 TIBC 303 Iron Saturation 14 L Ferritin Total Bilirubin AST ALT Alkaline Phosphatase Creatine Kinase Creatine Kinase Index CK-MB (CK-2) Total Protein Albumin Blood Type O POSITIVE Antibody Screen Negative Crossmatch See Detail 10/09/17 10/09/17 10/09/17 07:00 07:30 07:30 WBC 10.8 H RBC 4.02 D Hgb 10.8 D Hct 32.3 L D MCV 80.4 MCH 26.8 MCHC 33.3 RDW 17.0 H Plt Count 205 MPV 7.6 Neutrophils % 84.0 H Lymphocytes % 7.2 L Monocytes % 7.7 Eosinophils % 0.8 D Basophils % 0.3 Retic Count 2.89 H Sodium Cancelled 138 Potassium Cancelled 4.0 Chloride Cancelled 110 H Carbon Dioxide Cancelled 21 Anion Gap Cancelled 7 L BUN Cancelled 23 H Creatinine Cancelled 0.9 Creat Clearance w eGFR Cancelled > 60 Random Glucose Cancelled 85 Calcium Cancelled 7.4 L Magnesium Cancelled 1.8 Iron TIBC Iron Saturation Ferritin 24.196 Total Bilirubin Cancelled 1.0 D AST Cancelled 33 ALT Cancelled 34 Alkaline Phosphatase Cancelled 73 Creatine Kinase 210 H Creatine Kinase Index 1.4 CK-MB (CK-2) 3.056 Total Protein Cancelled 4.8 L Albumin Cancelled 2.6 L Blood Type Antibody Screen Crossmatch Active Medications Generic Name Dose Route Start Last Admin Trade Name Freq PRN Reason Stop Dose Admin Acetaminophen 650 mg 10/07/17 17:11 10/08/17 17:25 Tylenol - PO 650 mg Q4H PRN Administration PAIN OR FEVER Atorvastatin Calcium 20 mg 10/07/17 22:00 10/08/17 21:13 Lipitor - PO 20 mg HS SEAMUS Administration Baclofen 10 mg 10/07/17 22:00 10/09/17 10:36 Lioresal - PO 10 mg BID SEAMUS Administration Cholecalciferol 2,000 unit 10/08/17 10:00 10/09/17 10:36 Vitamin D3 - PO 2,000 unit DAILY SEAMUS Administration Diazepam 5 mg 10/07/17 17:23 Valium - PO BID PRN ANXIETY Duloxetine HCl 60 mg 10/08/17 10:00 10/09/17 10:36 Cymbalta - PO 60 mg DAILY SEAMUS Administration Pantoprazole Sodium 160 mg/ 290 mls @ 14.5 mls/hr 10/08/17 16:15 10/08/17 17: 58 Dextrose IVPB 14.5 mls/hr Q20H SEAMUS Administration 8 MG/HR Morphine Sulfate 2 mg 10/07/17 17:19 10/08/17 14:00 Morphine Injection - IVPUSH 2 mg Q4H PRN Administration PAIN LEVEL 6-10 Non-Formulary Medication 1 each 10/08/17 10:00 Calcium Citrate/Vitamin D3 [Citracal + D Caplet] PO DAILY [facility] Non-Formulary Medication 7 mg 10/08/17 10:00 Teriflunomide [Aubagio] PO DAILY [facility] Ondansetron HCl 4 mg 10/07/17 17:11 Zofran Injection IVPUSH Q4H PRN NAUSEA ASSESSMENT/PLAN: Patient is a 76 year old female with a significant past medical history of MS ( using RW at home), hypertension, on daily ASA 81mg, s/p R THR C/B prosthetic dislocation in 2014. Patient presents to the ER on 10/07/2017 with an unwitnessed fall when attempting to ambulate. In the ED she c/o of right hip and right groin pain. Patient reported falling at home 2 days prior to admission when attempting to ambulate to the bathroom with her walker. She denies any LOC, dizziness, or chest pain. Denies any other injuries. Denies any dark or black stools prior to the fall. In the ED, she was found to have a periprosthetic right femur fracture and hemoglobin of 3.9. She takes baby aspirin daily and uses occasional ibuprophen. Imaging: Hip xray: displaced fracture of R mid femur on x-ray. CT abd/pelviis: No signs of intra-abdominal organ injury or acute pathology within the abdomen or pelvis Head CT: moderate atrophy w/o interval change or acute intracranial path. Moderate soft tissue swelling/hematoma over the left zygomatic arch and left lateral aspect of the cheek w/o fracture. Skeletal: Right periprosthetic right femur fracture, acute Hip xray: displaced fracture of R mid femur on x-ray. CT shows no intraabdominal organ injury or acute pathology within the abdomen or pelvis Patient to go to the OR for ORIF with Dr. De Paz tentatively tomorrow 10/10 Found to have critical hmg/hct of 3.9/12.6 on admission, transfused a total of 4 units of prbc. hmg/hct more stable 1 unit of platelets given on 10/08 for chronic ASA use Monitor CBC in a.m. GI: GI bleed, acute +guiac stools On Protonix drip EGD as per GI Clear liquid diet Monitor CBC, now stable, repeat at noon GI following Neuro: Multiple sclerosis. chronic RW at home/s/p fall On Augagio 7mg po daily PT after surgery Patient willing to go to rehab once cleared by surgery/gi Renal: AARON, resolved Creat 2.0 >1.2>0.9 F.E.N. Fluids NS @ 83/cc/hr Electrolyes: monitor Nutrition: full liquid Prophylaxis: DVT: none d/t low hmg/hct GI: Protonix drip Disposition: full code. NPO at midnight. Discharge planning once cleared by surgery and GI. Visit type - Emergency Visit Emergency Visit: Yes ED Registration Date: 10/07/17 Care time: The patient presented to the Emergency Department on the above date and was hospitalized for further evaluation of their emergent condition. - New Patient This patient is new to me today: No - Critical Care Critical Care patient: No - Discharge Referral Referred to [facility] No
[2017-10-09 12:59] LABS: BASO % 0.2 % (0-2.0); EOS % 0.3 % (0-4.5); HEMATOCRIT 32.9 % (32.4-45.2); HEMOGLOBIN 10.8 GM/dL (10.7-15.3); LYMPH % 5.6 % (8-40); MCH 26.7 pg (25.7-33.7); MCHC 32.9 g/dl (32.0-36.0); MEAN PLT VOLUME 7.7 fl (7.5-11.1); MONO % 5.7 % (3.8-10.2); NEUT % 88.2 % (42.8-82.8); PLATELET COUNT 214 K/MM3 (134-434); RBC 4.06 M/mm3 (3.60-5.2); RDW 17.2 % (11.6-15.6); WHITE BLOOD COUNT 12.3 K/mm3 (4.0-10.0)
[2017-10-09] MEDS: PANTOPRAZOLE SODIUM 160 MG in DEXTROSE 5%-WATER - 290 ML IVPB SCH (14:32)
[2017-10-09] MEDS: TERIFLUNOMIDE 7 MG PO SCH (14:36)
[2017-10-09] MEDS: DOCUSATE SODIUM 100 MG CAPSULE (FP) PO SCH ×2 (14:36→21:44)
[2017-10-09] MEDS ORDERED: CEFTRIAXONE 1 G/50 ML PREMIX 50 ML IVPB ONE (16:15)
[2017-10-09] MEDS: ATORVASTATIN CA 20 MG TABLET (FP) PO SCH (21:44)
[2017-10-10] MEDS: DOCUSATE SODIUM 100 MG CAPSULE (FP) PO SCH ×3 (05:51→21:03)
[2017-10-10 08:20] LABS: BASO % 0.3 % (0-2.0); EOS % 0.5 % (0-4.5); HEMATOCRIT 34.5 % (32.4-45.2); HEMOGLOBIN 11.4 GM/dL (10.7-15.3); LYMPH % 5.5 % (8-40); MCH 26.4 pg (25.7-33.7); MCHC 32.9 g/dl (32.0-36.0); MEAN CELL VOLUME 80.3 fl (80-96); MEAN PLT VOLUME 7.6 fl (7.5-11.1); MONO % 7.9 % (3.8-10.2); NEUT % 85.8 % (42.8-82.8); PLATELET COUNT 236 K/MM3 (134-434); RDW 17.7 % (11.6-15.6); WHITE BLOOD COUNT 11.1 K/mm3 (4.0-10.0)
[2017-10-10 08:51] LABS: CHLORIDE 106 mmol/L (98-107); POTASSIUM 3.5 mmol/L (3.5-5.1); SODIUM 138 mmol/L (136-145)
[2017-10-10] MEDS: MORPHINE SULFATE 10 MG/1 ML *VIAL IVPUSH PRN (08:55)
[2017-10-10 09:01] LABS: ALBUMIN 2.6 g/dl (3.4-5.0); ALK PHOS 91 U/L (45-117); ANION GAP 7 (8-16); BLOOD UREA NITROGEN 12 mg/dL (7-18); CALCIUM 7.7 mg/dL (8.5-10.1); CO2 25 mmol/L (21-32); CREATININE 0.7 mg/dL (0.55-1.02); GLUCOSE,RANDOM 92 mg/dL (74-106); MAGNESIUM 1.7 mg/dL (1.8-2.4); SGOT/AST 26 U/L (15-37); SGPT/ALT 35 U/L (12-78); TOT PROT 5.1 g/dl (6.4-8.2)
[2017-10-10] MEDS ORDERED: MAGNESIUM SULF 50% (8.12 MEQ/2 ML-1 GM VIAL) IVPB ONE (09:10)
[2017-10-10] MEDS: PANTOPRAZOLE SODIUM 160 MG in DEXTROSE 5%-WATER - 290 ML IVPB SCH ×3 (09:11→18:57)
[2017-10-10] MEDS: CHOLECALCIFEROL (VITAMIN D3) 1,000 UNIT TABLET (FP) PO SCH (09:59)
[2017-10-10] MEDS ORDERED: MAGNESIUM 1GM/D5W - 1 GM/100 ML IVPB IVPB ONE (10:00)
[2017-10-10] MEDS: DULoxetine HCL 30 MG CAPSULE.DR (FP) PO SCH (10:00)
[2017-10-10] MEDS ORDERED: CEFTRIAXONE 1 G/50 ML PREMIX 50 ML IVPB SCH (10:00)
[2017-10-10] MEDS: BACLOFEN 10 MG TABLET (FP) PO SCH ×2 (10:00→21:03)
[2017-10-10] MEDS: TERIFLUNOMIDE 7 MG PO SCH (10:00)
--- NOTE | 2017-10-10 10:52 | PN ---
Progress Note, Physician History of Present Illness: No BMs since yesterday. Appears comfortable. No events reported. - Current Medication List Current Medications: Active Medications Acetaminophen (Tylenol -) 650 mg PO Q4H PRN PRN Reason: PAIN OR FEVER Last Admin: 10/08/17 17:25 Dose: 650 mg Atorvastatin Calcium (Lipitor -) 20 mg PO HS [facility] Last Admin: 10/09/17 21:44 Dose: 20 mg Baclofen (Lioresal -) 10 mg PO BID [facility] Last Admin: 10/10/17 10:00 Dose: Not Given Cholecalciferol (Vitamin D3 -) 2,000 unit PO DAILY [facility] Last Admin: 10/10/17 09:59 Dose: Not Given Diazepam (Valium -) 5 mg PO BID PRN PRN Reason: ANXIETY Docusate Sodium (Colace -) 100 mg PO TID [facility] Last Admin: 10/10/17 05:51 Dose: Not Given Duloxetine HCl (Cymbalta -) 60 mg PO DAILY [facility] Last Admin: 10/10/17 10:00 Dose: Not Given Pantoprazole Sodium 160 mg/ (Dextrose) 290 mls @ 14.5 mls/hr IVPB Q20H [facility] PRN Reason: 8 MG/HR Last Admin: 10/10/17 09:11 Dose: Not Given CEFTRIAXONE 1 G/50 ML PREMIX (Ceftriaxone 1 Gm-D5w Bag) 50 mls @ 100 mls/hr IVPB DAILY [facility] Last Admin: 10/10/17 10:07 Dose: 100 mls/hr Magnesium Sulfate/Dextrose (Magnesium 1gm/D5w -) 1 gm in 100 mls @ 100 mls/hr IVPB ONCE ONE Stop: 10/10/17 10:59 Last Admin: 10/10/17 10:42 Dose: 100 mls/hr Morphine Sulfate (Morphine Injection -) 2 mg IVPUSH Q4H PRN PRN Reason: PAIN LEVEL 6-10 Last Admin: 10/10/17 08:55 Dose: 2 mg Non-Formulary Medication (Teriflunomide [Aubagio]) 7 mg PO DAILY [facility] Last Admin: 10/10/17 10:00 Dose: Not Given Ondansetron HCl (Zofran Injection) 4 mg IVPUSH Q4H PRN PRN Reason: NAUSEA - Objective Vital Signs: Vital Signs Temperature 98.7 F 10/10/17 09:12 Pulse Rate 81 10/10/17 09:12 Respiratory Rate 20 10/10/17 09:12 Blood Pressure 154/78 10/10/17 09:12 O2 Sat by Pulse Oximetry (%) 97 10/09/17 22:00 Constitutional: Yes: No Distress, Calm Eyes: Yes: Conjunctiva Clear HENT: Yes: Atraumatic Neck: Yes: Supple Gastrointestinal: Yes: Soft. No: Distention, Melena, Tenderness, Tenderness, Epigastrium, Vomiting Neurological: Yes: Alert Labs: CBC, BMP 10/10/17 07:15 10/10/17 07:15 INR, PTT INR 1.05 (0.82-1.09) 10/07/17 11:50 CBCD WBC 11.1 K/mm3 (4.0-10.0) H 10/10/17 07:15 RBC 4.30 M/mm3 (3.60-5.2) 10/10/17 07:15 Hgb 11.4 GM/dL (10.7-15.3) 10/10/17 07:15 Hct 34.5 % (32.4-45.2) 10/10/17 07:15 MCV 80.3 fl (80-96) 10/10/17 07:15 MCHC 32.9 g/dl (32.0-36.0) 10/10/17 07:15 RDW 17.7 % (11.6-15.6) H 10/10/17 07:15 Plt Count 236 K/MM3 (134-434) 10/10/17 07:15 MPV 7.6 fl (7.5-11.1) 10/10/17 07:15 CMP Sodium 138 mmol/L (136-145) 10/10/17 07:15 Potassium 3.5 mmol/L (3.5-5.1) 10/10/17 07:15 Chloride 106 mmol/L (98-107) 10/10/17 07:15 Carbon Dioxide 25 mmol/L (21-32) 10/10/17 07:15 Anion Gap 7 (8-16) L 10/10/17 07:15 BUN 12 mg/dL (7-18) 10/10/17 07:15 Creatinine 0.7 mg/dL (0.55-1.02) 10/10/17 07:15 Creat Clearance w eGFR > 60 (>60) 10/10/17 07:15 Calcium 7.7 mg/dL (8.5-10.1) L 10/10/17 07:15 Total Bilirubin 1.0 mg/dL (0.2-1.0) 10/10/17 07:15 AST 26 U/L (15-37) 10/10/17 07:15 ALT 35 U/L (12-78) 10/10/17 07:15 Alkaline Phosphatase 91 U/L (45-117) 10/10/17 07:15 Total Protein 5.1 g/dl (6.4-8.2) L 10/10/17 07:15 Albumin 2.6 g/dl (3.4-5.0) L 10/10/17 07:15 Problem List - Problems (1) Anemia Code(s): D64.9 - ANEMIA, UNSPECIFIED Qualifiers: Anemia type: unspecified type Qualified Code(s): D64.9 - Anemia, unspecified Assessment/Plan No external signs of GI bleeding observed thus far. No events. Will need GI work up once acute ortho issues have resolved. Acute intervention if actively bleeding. Continue the PPI and close monitoring for the sings of GI bleeding. Will follow.
--- NOTE | 2017-10-10 13:40 | PN ---
Physical Exam: SUBJECTIVE: Patient seen and examined. States she feels well, denies chest pain, denies shortness of breath. OBJECTIVE: Patient going to the OR for right femur repair labs stable, vitals stable Vital Signs Period Temp Pulse Resp BP Sys/Obrien Pulse Ox Last 24 Hr 89 F-99.0 F 81-102 17-20 119-158/65-78 97-97 GENERAL: The patient is awake, alert, and fully oriented, in no acute distress. HEAD: Normal with no signs of trauma. EYES: PERRL, extraocular movements intact, sclera anicteric, conjunctiva clear. No ptosis. ENT: Ears normal, nares patent, oropharynx clear without exudates, moist mucous membranes. NECK: Trachea midline, full range of motion, supple. LUNGS: Breath sounds equal, clear to auscultation bilaterally, no wheezes, no crackles, no accessory muscle use. HEART: Regular rate and rhythm ABDOMEN: Soft, nontender, nondistended, normoactive bowel sounds, no guarding, no rebound, no hepatosplenomegaly, no masses. EXTREMITIES: right femur fracture, bed bound NEUROLOGICAL: Normal speech, gait not observed. PSYCH: Normal mood, normal affect. Laboratory Results - last 24 hr 10/07/17 10/10/17 10/10/17 11:22 07:15 07:15 WBC 11.1 H RBC 4.30 Hgb 11.4 Hct 34.5 MCV 80.3 MCH 26.4 MCHC 32.9 RDW 17.7 H Plt Count 236 MPV 7.6 Neutrophils % 85.8 H Lymphocytes % 5.5 L Monocytes % 7.9 Eosinophils % 0.5 Basophils % 0.3 Sodium 138 Potassium 3.5 Chloride 106 Carbon Dioxide 25 Anion Gap 7 L BUN 12 Creatinine 0.7 Creat Clearance w eGFR > 60 Random Glucose 92 Calcium 7.7 L Magnesium 1.7 L Total Bilirubin 1.0 AST 26 ALT 35 Alkaline Phosphatase 91 Total Protein 5.1 L Albumin 2.6 L Blood Type O POSITIVE Antibody Screen Negative Crossmatch See Detail Active Medications Generic Name Dose Route Start Last Admin Trade Name Freq PRN Reason Stop Dose Admin Acetaminophen 650 mg 10/07/17 17:11 10/08/17 17:25 Tylenol - PO 650 mg Q4H PRN Administration PAIN OR FEVER Atorvastatin Calcium 20 mg 10/07/17 22:00 10/09/17 21:44 Lipitor - PO 20 mg HS [facility] Administration Baclofen 10 mg 10/07/17 22:00 10/10/17 10:00 Lioresal - PO Not Given BID [facility] Cholecalciferol 2,000 unit 10/08/17 10:00 10/10/17 09:59 Vitamin D3 - PO Not Given DAILY [facility] Diazepam 5 mg 10/07/17 17:23 Valium - PO BID PRN ANXIETY Docusate Sodium 100 mg 10/09/17 14:00 10/10/17 05:51 Colace - PO Not Given TID [facility] Duloxetine HCl 60 mg 10/08/17 10:00 10/10/17 10:00 Cymbalta - PO Not Given DAILY [facility] Pantoprazole Sodium 160 mg/ 290 mls @ 14.5 mls/hr 10/08/17 16:15 10/10/17 12: 28 Dextrose IVPB 14.5 mls/hr Q20H [facility] Administration 8 MG/HR CEFTRIAXONE 1 G/50 ML PREMIX 50 mls @ 100 mls/hr 10/10/17 10:00 10/10/17 10: 07 Ceftriaxone 1 Gm-D5w Bag IVPB 100 mls/hr DAILY [facility] Administration Morphine Sulfate 2 mg 10/07/17 17:19 10/10/17 08:55 Morphine Injection - IVPUSH 2 mg Q4H PRN Administration PAIN LEVEL 6-10 Non-Formulary Medication 7 mg 10/09/17 14:15 10/10/17 10:00 Teriflunomide [Aubagio] PO Not Given DAILY [facility] Ondansetron HCl 4 mg 10/07/17 17:11 Zofran Injection IVPUSH Q4H PRN NAUSEA ASSESSMENT/PLAN: Patient is a 76 year old female with a significant past medical history of MS ( using RW at home), hypertension, on daily ASA 81mg, s/p R THR C/B prosthetic dislocation in 2014. Patient presents to the ER on 10/07/2017 with an unwitnessed fall when attempting to ambulate. In the ED she c/o of right hip and right groin pain. Patient reported falling at home 2 days prior to admission when attempting to ambulate to the bathroom with her walker. She denies any LOC, dizziness, or chest pain. Denies any other injuries. Denies any dark or black stools prior to the fall. In the ED, she was found to have a periprosthetic right femur fracture and hemoglobin of 3.9. She takes baby aspirin daily and uses occasional ibuprophen. Imaging: Hip xray: displaced fracture of R mid femur on x-ray. CT abd/pelviis: No signs of intra-abdominal organ injury or acute pathology within the abdomen or pelvis Head CT: moderate atrophy w/o interval change or acute intracranial path. Moderate soft tissue swelling/hematoma over the left zygomatic arch and left lateral aspect of the cheek w/o fracture. Skeletal: Right periprosthetic right femur fracture, acute Hip xray: displaced fracture of R mid femur on x-ray. CT shows no intraabdominal organ injury or acute pathology within the abdomen or pelvis Patient to go to the OR for ORIF with Dr. De Paz tentatively tomorrow 10/10 Found to have critical hmg/hct of 3.9/12.6 on admission, transfused a total of 4 units of prbc, now resolved hmg/hct stable 1 unit of platelets given on 10/08 for chronic ASA use Monitor CBC daily GI: GI bleed, acute +guiac stools On Protonix drip, continue EGD as per GI after surgical repair Monitor CBC GI following Neuro: Multiple sclerosis. chronic RW at home/s/p fall On Augagio 7mg po daily PT after surgery Renal: AARON, resolved F.E.N. Fluids NS @ 83/cc/hr Electrolyes: monitor Nutrition: npo Prophylaxis: DVT: SCDs, do not start anticoagulation after surgery until cleared by GI. GI: Protonix drip Disposition: full code. NPO. For OR today for right femur repair. medically cleared. Visit type - Emergency Visit Emergency Visit: Yes ED Registration Date: 10/07/17 Care time: The patient presented to the Emergency Department on the above date and was hospitalized for further evaluation of their emergent condition. - New Patient This patient is new to me today: No - Critical Care Critical Care patient: No - Discharge Referral [facility]erred to [facility] Med P.C.: No
[2017-10-10] MEDS ORDERED: LIDOCAINE HCL/PF 2% SDV 5ML VIAL ONE (15:13)
[2017-10-10] MEDS ORDERED: PROPOFOL 20 ML ONE (15:13)
[2017-10-10] MEDS ORDERED: ROCURONIUM BROMIDE 50 MG/5 ML VIAL ONE (15:14)
[2017-10-10] MEDS: ceFAZolin SODIUM 1 GM VIAL IVPB ONE ×2 (15:24→22:43)
[2017-10-10] MEDS ORDERED: KETOROLAC TROMETHAMINE 30 MG/1 ML VIAL ONE (16:34)
[2017-10-10] MEDS ORDERED: NEOSTIGMINE METHYLSULFATE 0.5 MG/ML - 10 ML MDV ONE (16:34)
[2017-10-10] MEDS ORDERED: GLYCOPYRROLATE 0.2 MG/1 ML VIAL ONE (16:34)
[2017-10-10] MEDS ORDERED: DEXAMETHASONE SOD PHOSPHATE 4 MG/1 ML VIAL ONE (16:35)
[2017-10-10] MEDS ORDERED: ESMOLOL HCL 100,000 MCG/10 ML VIAL ONE (16:41)
[2017-10-10] MEDS ORDERED: LABETALOL HCL 5 MG/1 ML (100MG/20 ML VIAL) ONE ×3 (16:43→16:46)
--- NOTE | 2017-10-10 16:53 | OP ---
Operative Note - Note: Operative Date: 10/10/17 ([facility]) Pre-Operative Diagnosis: right periprosthetic femur fx Operation: right femur ORIF Post-Operative Diagnosis: Same as Pre-op Surgeon: Don De Paz Long Distance Operator: Shawn Brand Anesthesiologist/REBRANDER: Carlos Shankar Anesthesia: General Estimated Blood Loss (mls): 400 Operative Report Dictated: Yes
[2017-10-10] MEDS ORDERED: PROMETHAZINE HCL 25 MG/1 ML VIAL IVPUSH PRN (17:06)
[2017-10-10] MEDS ORDERED: ONDANSETRON 4 MG/2 ML VIAL IVPUSH PRN ×2 (17:06→17:13)
[2017-10-10] MEDS ORDERED: MORPHINE SULFATE 10 MG/1 ML *VIAL IVPUSH PRN (17:13)
[2017-10-10] MEDS ORDERED: diazePAM 5 MG TABLET PO PRN (17:13)
[2017-10-10] MEDS ORDERED: PT OWN MED DRAWER 7, Y5N ONE (17:49)
[2017-10-10] MEDS: ELECTROLYTE-148 SOLN 1,000 ML IV SCH (18:20)
[2017-10-10] MEDS: ATORVASTATIN CA 20 MG TABLET (FP) PO SCH (21:03)
[2017-10-10] MEDS: CEFAZOLIN 1 GM PUSH 1 GM/10 ML DISP.SYRIN IVPUSH SCH (22:44)
[2017-10-10] MEDS: oxyCODONE HCL 5 MG TABLET PO PRN (22:56)
[2017-10-10] MEDS ORDERED: CEFAZOLIN 1 GM/D5W 50 ML IVPB SCH (23:00)
[2017-10-11] MEDS: CEFAZOLIN 1 GM PUSH 1 GM/10 ML DISP.SYRIN IVPUSH SCH (02:21)
[2017-10-11] MEDS: PANTOPRAZOLE SODIUM 160 MG in DEXTROSE 5%-WATER - 290 ML IVPB SCH ×2 (04:29→14:40)
[2017-10-11] MEDS: ELECTROLYTE-148 SOLN 1,000 ML IV SCH ×2 (06:12→21:09)
[2017-10-11] MEDS: DOCUSATE SODIUM 100 MG CAPSULE (FP) PO SCH ×3 (06:14→21:22)
--- NOTE | 2017-10-11 07:17 | OP ---
DATE OF OPERATION: 10/10/2017 PREOPERATIVE DIAGNOSIS: Right periprosthetic femoral shaft fracture. POSTOPERATIVE DIAGNOSIS: Right periprosthetic femoral shaft fracture. PROCEDURE: Open reduction internal fixation right periprosthetic femur fracture. SURGEON ATTENDING: Juan David De Paz M.D. WOMEN'S ACTIVITIES ADVISER: Mana Shukla ANESTHESIA: General. CLOSURE: A Vickery broad large fragment plate with screws and cable, number 1 Vicryl fascia, 2-0 subcutaneous and courtney for skin. ESTIMATED BLOOD LOSS: Approximately 250 mL. COMPLICATIONS: None. CONDITION: To recovery room in stable condition. DESCRIPTION OF PROCEDURE: The patient was taken to the operating room on October 10, 2017. General anesthesia with endotracheal intubation administered by anesthesiologist. IV Kefzol administered prophylactically prior to the case. The patient was placed in lateral decubitus position with all prominences well padded. The right hip area was prepped and draped in the usual sterile fashion. A 10 to 12 cm longitudinal incision on the lateral aspect . Sharp dissection was carried incision. The vastus lateralis was lifted off the linea aspera and exposing the fracture. Subperiosteal dissection was done proximally and distally in order to expose the fracture. Curettes and irrigation were used to clear out the fracture, and then a large Mayte clamp was used to obtain an anatomical reduction of the fracture. A broad Elaine large fragment plate was clamped to the lateral aspect of the femur and held with the Mayte clamp maintaining anatomical reduction. Multiple cables were placed proximally and distally throughout the fracture. We could not lag the fracture as bone quality was very poor. Three distal screws were placed, two of them locking and one was nonlocking, achieving adequate fixation, adjuvant fixation was used by using cables as well. Post fixation, the hip and the knee were taken through a range of motion and found to be stable. The incision was copiously irrigated with antibiotic irrigation. Hemostasis was obtained. The vastus lateralis was tacked back to the linea aspera, and then the ITB was then closed with number 1 Vicryl interrupted suture, 2-0 Vicryl for subcutaneous, and courtney for skin. Sterile pressure dressing was then applied. The patient was placed in the supine position where x-rays were obtained, which showed excellent position and reduction of the fracture. Patient was awakened from anesthesia, transferred to recovery room in stable condition, no complications. Estimated blood loss approximately 200 mL. JUAN DAVID DE PAZ M.D. [id number]
[2017-10-11 08:23] LABS: BASO % 0.3 % (0-2.0); EOS % 0.1 % (0-4.5); HEMATOCRIT 24.4 % (32.4-45.2); LYMPH % 5.4 % (8-40); MCH 26.7 pg (25.7-33.7); MEAN CELL VOLUME 80.9 fl (80-96); MEAN PLT VOLUME 7.7 fl (7.5-11.1); MONO % 11.8 % (3.8-10.2); NEUT % 82.4 % (42.8-82.8); PLATELET COUNT 215 K/MM3 (134-434); RBC 3.01 M/mm3 (3.60-5.2); RDW 18.3 % (11.6-15.6); WHITE BLOOD COUNT 11.7 K/mm3 (4.0-10.0)
[2017-10-11 09:21] LABS: ALBUMIN 2.3 g/dl (3.4-5.0); ANION GAP 10 (8-16); BLOOD UREA NITROGEN 12 mg/dL (7-18); CALCIUM 7.4 mg/dL (8.5-10.1); CHLORIDE 104 mmol/L (98-107); CO2 24 mmol/L (21-32); GLUCOSE,RANDOM 88 mg/dL (74-106); MAGNESIUM 1.8 mg/dL (1.8-2.4); SODIUM 138 mmol/L (136-145)
[2017-10-11 09:24] LABS: ALK PHOS 63 U/L (45-117); BILIRUBIN,TOTAL 0.4 mg/dL (0.2-1.0); CREATININE 0.7 mg/dL (0.55-1.02); SGOT/AST 17 U/L (15-37); SGPT/ALT 20 U/L (12-78); TOT PROT 4.2 g/dl (6.4-8.2)
[2017-10-11] MEDS: CHOLECALCIFEROL (VITAMIN D3) 1,000 UNIT TABLET (FP) PO SCH (09:33)
[2017-10-11] MEDS: BACLOFEN 10 MG TABLET (FP) PO SCH ×2 (09:33→21:21)
[2017-10-11] MEDS: CEFTRIAXONE 1 G/50 ML PREMIX 50 ML IVPB SCH (09:34)
[2017-10-11] MEDS: DULoxetine HCL 30 MG CAPSULE.DR (FP) PO SCH (09:35)
--- NOTE | 2017-10-11 09:35 | PN ---
Progress Note, Physician Chief Complaint: Pt. pain controlled, no anetshesia complaints. - Current Medication List Current Medications: Active Medications Acetaminophen (Tylenol -) 650 mg PO Q4H PRN PRN Reason: PAIN OR FEVER Atorvastatin Calcium (Lipitor -) 20 mg PO HS [facility] Last Admin: 10/10/17 21:03 Dose: 20 mg Baclofen (Lioresal -) 10 mg PO BID [facility] Last Admin: 10/10/17 21:03 Dose: 10 mg Cholecalciferol (Vitamin D3 -) 2,000 unit PO DAILY [facility] Diazepam (Valium -) 5 mg PO BID PRN PRN Reason: ANXIETY Docusate Sodium (Colace -) 100 mg PO TID [facility] Last Admin: 10/11/17 06:14 Dose: 100 mg Duloxetine HCl (Cymbalta -) 60 mg PO DAILY [facility] Parenteral Electrolytes (Plasma-Lyte 148 -) 1,000 mls @ 75 mls/hr IV ASDIR [facility] Last Admin: 10/11/17 06:12 Dose: 75 mls/hr CEFTRIAXONE 1 G/50 ML PREMIX (Ceftriaxone 1 Gm-D5w Bag) 50 mls @ 100 mls/hr IVPB DAILY [facility] Pantoprazole Sodium 160 mg/ (Dextrose) 290 mls @ 14.5 mls/hr IVPB Q20H [facility] PRN Reason: 8 MG/HR Last Admin: 10/11/17 04:29 Dose: Not Given Morphine Sulfate (Morphine Injection -) 2 mg IVPUSH Q4H PRN PRN Reason: PAIN LEVEL 6-10 Non-Formulary Medication (Teriflunomide [Aubagio]) 7 mg PO DAILY [facility] Ondansetron HCl (Zofran Injection) 4 mg IVPUSH Q6H PRN PRN Reason: NAUSEA AND/OR VOMITING Ondansetron HCl (Zofran Injection) 4 mg IVPUSH Q4H PRN PRN Reason: NAUSEA Oxycodone HCl (Roxicodone -) 5 mg PO Q4H PRN PRN Reason: Pain Level > 4 Stop: 10/11/17 17:05 Last Admin: 10/10/17 22:56 Dose: 5 mg Promethazine HCl (Phenergan Injection -) 12.5 mg IVPUSH Q6H PRN PRN Reason: NAUSEA-FOR RESCUE AFTER 15 MIN - Objective Vital Signs: Vital Signs Temperature 97.8 F 01/30/18 08:00 Pulse Rate 90 10/11/17 08:00 Respiratory Rate 18 10/11/17 08:00 Blood Pressure 115/60 10/11/17 08:00 O2 Sat by Pulse Oximetry (%) 98 10/10/17 21:00 Constitutional: Yes: Well Nourished, No Distress, Calm Musculoskeletal: Yes: WNL Neurological: Yes: WNL, Alert, Oriented ...Motor Strength: WNL Labs: CBC, BMP 10/11/17 06:00 INR, PTT INR 1.05 (0.82-1.09) 10/07/17 11:50 Assessment/Plan POD#1 s/p ORIF left femur under GA. Doing well. D/C from anesthesia care.
[2017-10-11] MEDS: TERIFLUNOMIDE 7 MG PO SCH (09:37)
[2017-10-11] MEDS ORDERED: ENOXAPARIN NA (PORCINE) 40 MG/0.4 ML DISP.SYRIN SQ SCH ×2 (10:00)
[2017-10-11] MEDS: oxyCODONE HCL 5 MG TABLET PO PRN (10:23)
--- NOTE | 2017-10-11 13:36 | PN ---
Progress Note (short form) - Note Progress Note: Ortho Pt seen and examined s/p right femur orif pod #1 Selected Entries 10/11/17 08:00 Temperature 97.8 F Pulse Rate 90 Respiratory 18 Rate Blood Pressure 115/60 Laboratory Tests 10/11/17 06:00 WBC 11.7 H Hgb 8.0 L D Hct 24.4 L D Plt Count 215 dressing saturated, incision c/d/i, calf soft, nt nvi a/p PT NWB oob to chair monitor h/h dressing changed d/c planning
[2017-10-11] MEDS ORDERED: PT OWN MED DRAWER 7, Y5N ONE (14:38)
[2017-10-11] MEDS ORDERED: SENNOSIDES 8.6MG TABLET (FP) PO ONE (14:45)
--- NOTE | 2017-10-11 17:18 | PN ---
Physical Exam: SUBJECTIVE: Patient seen and examined at the bedside. s/p surgical repair, feels well. denies any shortness of breath OBJECTIVE: do not start patient on any anticoagulation until cleared by GI. UTI on ceftriaxone Vital Signs Period Temp Pulse Resp BP Sys/Obrien Pulse Ox Last 24 Hr 97.5 F-98.6 F 69-113 16-20 114-165/46-79 96-99 GENERAL: The patient is awake, alert, and fully oriented, in no acute distress. HEAD: Normal with no signs of trauma. EYES: PERRL, extraocular movements intact, sclera anicteric, conjunctiva clear. No ptosis. ENT: Ears normal, nares patent, oropharynx clear without exudates, moist mucous membranes. NECK: Trachea midline, full range of motion, supple. LUNGS: Breath sounds equal, clear to auscultation bilaterally, no wheezes, no crackles, no accessory muscle use. HEART: Regular rate and rhythm ABDOMEN: Soft, nontender, nondistended, normoactive bowel sounds, no guarding, no rebound, no hepatosplenomegaly, no masses. EXTREMITIES: right femur fracture, POD #1 NEUROLOGICAL: Normal speech, gait not observed. PSYCH: Normal mood, normal affect. Laboratory Results - last 24 hr 10/07/17 10/11/17 10/11/17 11:22 06:00 06:00 WBC 11.7 H RBC 3.01 L D Hgb 8.0 L D Hct 24.4 L D MCV 80.9 MCH 26.7 MCHC 33.0 RDW 18.3 H Plt Count 215 MPV 7.7 Neutrophils % 82.4 Lymphocytes % 5.4 L Monocytes % 11.8 H Eosinophils % 0.1 Basophils % 0.3 Sodium 138 Potassium 4.0 Chloride 104 Carbon Dioxide 24 Anion Gap 10 BUN 12 Creatinine 0.7 Creat Clearance w eGFR > 60 Random Glucose 88 Calcium 7.4 L Magnesium 1.8 Total Bilirubin 0.4 D AST 17 ALT 20 Alkaline Phosphatase 63 Total Protein 4.2 L Albumin 2.3 L Blood Type O POSITIVE Antibody Screen Negative Crossmatch See Detail Active Medications Generic Name Dose Route Start Last Admin Trade Name Freq PRN Reason Stop Dose Admin Acetaminophen 650 mg 10/10/17 17:13 Tylenol - PO Q4H PRN PAIN OR FEVER Atorvastatin Calcium 20 mg 10/10/17 22:00 10/10/17 21:03 Lipitor - PO 20 mg HS [facility] Administration Baclofen 10 mg 10/10/17 22:00 10/11/17 09:33 Lioresal - PO 10 mg BID [facility] Administration Cholecalciferol 2,000 unit 10/11/17 10:00 10/11/17 09:33 Vitamin D3 - PO 2,000 unit DAILY [facility] Administration Diazepam 5 mg 10/10/17 17:13 Valium - PO BID PRN ANXIETY Docusate Sodium 100 mg 10/10/17 22:00 10/11/17 14:40 Colace - PO 100 mg TID [facility] Administration Duloxetine HCl 60 mg 10/11/17 10:00 10/11/17 09:35 Cymbalta - PO 60 mg DAILY [facility] Administration Parenteral Electrolytes 1,000 mls @ 75 mls/hr 10/10/17 17:15 10/11/17 06:12 Plasma-Lyte 148 - IV 75 mls/hr ASDIR [facility] Administration CEFTRIAXONE 1 G/50 ML PREMIX 50 mls @ 100 mls/hr 10/11/17 10:00 10/11/17 09: 34 Ceftriaxone 1 Gm-D5w Bag IVPB 100 mls/hr DAILY [facility] Administration Pantoprazole Sodium 160 mg/ 290 mls @ 14.5 mls/hr 10/11/17 04:15 10/11/17 14: 40 Dextrose IVPB 14.5 mls/hr Q20H [facility] Administration 8 MG/HR Morphine Sulfate 2 mg 10/10/17 17:13 Morphine Injection - IVPUSH Q4H PRN PAIN LEVEL 6-10 Non-Formulary Medication 7 mg 10/11/17 10:00 10/11/17 09:37 Teriflunomide [Aubagio] PO 7 mg DAILY [facility] Administration Ondansetron HCl 4 mg 10/10/17 17:06 Zofran Injection IVPUSH Q6H PRN NAUSEA AND/OR VOMITING Ondansetron HCl 4 mg 10/10/17 17:13 Zofran Injection IVPUSH Q4H PRN NAUSEA Promethazine HCl 12.5 mg 10/10/17 17:06 Phenergan Injection - IVPUSH Q6H PRN NAUSEA-FOR RESCUE AFTER 15 MIN ASSESSMENT/PLAN: Patient is a 76 year old female with a significant past medical history of MS ( using RW at home), hypertension, on daily ASA 81mg, s/p R THR C/B prosthetic dislocation in 2014. Patient presents to the ER on 10/07/2017 with an unwitnessed fall when attempting to ambulate. In the ED she c/o of right hip and right groin pain. Patient reported falling at home 2 days prior to admission when attempting to ambulate to the bathroom with her walker. She denies any LOC, dizziness, or chest pain. Denies any other injuries. Denies any dark or black stools prior to the fall. In the ED, she was found to have a periprosthetic right femur fracture and hemoglobin of 3.9. She takes baby aspirin daily and uses occasional ibuprophen. Imaging: Hip xray: displaced fracture of R mid femur on x-ray. CT abd/pelviis: No signs of intra-abdominal organ injury or acute pathology within the abdomen or pelvis Head CT: moderate atrophy w/o interval change or acute intracranial path. Moderate soft tissue swelling/hematoma over the left zygomatic arch and left lateral aspect of the cheek w/o fracture. Ortho: Right periprosthetic right femur fracture repair, POD #1 Hip xray: displaced fracture of R mid femur on x-ray. CT shows no intraabdominal organ injury or acute pathology within the abdomen or pelvis hmg/hct stable 1 unit of platelets given on 10/08 for chronic ASA use Monitor CBC daily Physical therapy GI: GI bleed, acute Found to have critical hmg/hct of 3.9/12.6 on admission, transfused a total of 4 units of prbc, 1 unit of platelets infused for chronic ASA use +guiac stools On Protonix drip, continue EGD as per GI after surgical repair Monitor CBC GI following, no anticoagulation until cleared by GI Neuro: Multiple sclerosis. chronic RW at home/s/p fall On Augagio 7mg po daily PT after surgery Renal: AARON, resolved UTI On Ceftriaxone F.E.N. Fluids NS @ 83/cc/hr Electrolyes: monitor Nutrition: regular Prophylaxis: DVT: SCDs, do not start anticoagulation after surgery until cleared by GI. GI: Protonix drip Disposition: full code. Visit type - Emergency Visit Emergency Visit: Yes ED Registration Date: 10/07/17 Care time: The patient presented to the Emergency Department on the above date and was hospitalized for further evaluation of their emergent condition. - New Patient This patient is new to me today: No - Critical Care Critical Care patient: No - Discharge Referral Referred to [facility] Med P.C.: No
[2017-10-11] MEDS: ATORVASTATIN CA 20 MG TABLET (FP) PO SCH (21:21)
[2017-10-11] MEDS: ACETAMINOPHEN 325 MG TABLET (FP) PO PRN (21:23)
[2017-10-12] MEDS: PANTOPRAZOLE SODIUM 160 MG in DEXTROSE 5%-WATER - 290 ML IVPB SCH ×3 (01:07→20:57)
[2017-10-12] MEDS: DOCUSATE SODIUM 100 MG CAPSULE (FP) PO SCH ×3 (05:37→21:01)
[2017-10-12 07:55] LABS: BASO % 0.3 % (0-2.0); EOS % 0.7 % (0-4.5); HEMATOCRIT 22.7 % (32.4-45.2); HEMOGLOBIN 7.7 GM/dL (10.7-15.3); LYMPH % 6.3 % (8-40); MCH 27.8 pg (25.7-33.7); MCHC 33.9 g/dl (32.0-36.0); MEAN CELL VOLUME 81.8 fl (80-96); MEAN PLT VOLUME 7.7 fl (7.5-11.1); MONO % 14.1 % (3.8-10.2); NEUT % 78.6 % (42.8-82.8); PLATELET COUNT 221 K/MM3 (134-434); RBC 2.77 M/mm3 (3.60-5.2); WHITE BLOOD COUNT 9.9 K/mm3 (4.0-10.0)
--- NOTE | 2017-10-12 09:09 | PN ---
Progress Note, Physician History of Present Illness: No BMs per pt. Appears comfortable. S/p hip sx. No events reported. Hgb trending down - Current Medication List Current Medications: Active Medications Acetaminophen (Tylenol -) 650 mg PO Q4H PRN PRN Reason: PAIN OR FEVER Last Admin: 10/11/17 21:23 Dose: 650 mg Atorvastatin Calcium (Lipitor -) 20 mg PO HS [facility] Last Admin: 10/11/17 21:21 Dose: 20 mg Baclofen (Lioresal -) 10 mg PO BID [facility] Last Admin: 10/11/17 21:21 Dose: 10 mg Cholecalciferol (Vitamin D3 -) 2,000 unit PO DAILY [facility] Last Admin: 10/11/17 09:33 Dose: 2,000 unit Diazepam (Valium -) 5 mg PO BID PRN PRN Reason: ANXIETY Docusate Sodium (Colace -) 100 mg PO TID [facility] Last Admin: 10/12/17 05:37 Dose: Not Given Duloxetine HCl (Cymbalta -) 60 mg PO DAILY [facility] Last Admin: 10/11/17 09:35 Dose: 60 mg Parenteral Electrolytes (Plasma-Lyte 148 -) 1,000 mls @ 75 mls/hr IV ASDIR [facility] Last Admin: 10/11/17 21:09 Dose: 75 mls/hr CEFTRIAXONE 1 G/50 ML PREMIX (Ceftriaxone 1 Gm-D5w Bag) 50 mls @ 100 mls/hr IVPB DAILY [facility] Last Admin: 10/11/17 09:34 Dose: 100 mls/hr Pantoprazole Sodium 160 mg/ (Dextrose) 290 mls @ 14.5 mls/hr IVPB Q20H [facility] PRN Reason: 8 MG/HR Last Admin: 10/12/17 01:07 Dose: Not Given Morphine Sulfate (Morphine Injection -) 2 mg IVPUSH Q4H PRN PRN Reason: PAIN LEVEL 6-10 Non-Formulary Medication (Teriflunomide [Aubagio]) 7 mg PO DAILY [facility] Last Admin: 10/11/17 09:37 Dose: 7 mg Ondansetron HCl (Zofran Injection) 4 mg IVPUSH Q6H PRN PRN Reason: NAUSEA AND/OR VOMITING Ondansetron HCl (Zofran Injection) 4 mg IVPUSH Q4H PRN PRN Reason: NAUSEA Promethazine HCl (Phenergan Injection -) 12.5 mg IVPUSH Q6H PRN PRN Reason: NAUSEA-FOR RESCUE AFTER 15 MIN - Objective Vital Signs: Vital Signs Temperature 99.7 F H 10/12/17 06:00 Pulse Rate 97 H 10/12/17 06:00 Respiratory Rate 20 10/12/17 06:00 Blood Pressure 132/74 10/12/17 06:00 O2 Sat by Pulse Oximetry (%) 98 10/11/17 21:00 Constitutional: Yes: No Distress, Calm Eyes: Yes: Conjunctiva Clear HENT: Yes: Atraumatic Neck: Yes: Supple Cardiovascular: Yes: Regular Rate and Rhythm Respiratory: Yes: Regular Gastrointestinal: Yes: Soft. No: Distention, Melena, Rectal Bleeding, Tenderness, Vomiting Neurological: Yes: Alert, Oriented Labs: CBC, BMP 10/12/17 06:35 INR, PTT INR 1.05 (0.82-1.09) 10/07/17 11:50 CBCD WBC 9.9 K/mm3 (4.0-10.0) 10/12/17 06:35 RBC 2.77 M/mm3 (3.60-5.2) L 10/12/17 06:35 Hgb 7.7 GM/dL (10.7-15.3) L 10/12/17 06:35 Hct 22.7 % (32.4-45.2) L 10/12/17 06:35 MCV 81.8 fl (80-96) 10/12/17 06:35 MCHC 33.9 g/dl (32.0-36.0) 10/12/17 06:35 RDW 19.0 % (11.6-15.6) H 10/12/17 06:35 Plt Count 221 K/MM3 (134-434) 10/12/17 06:35 MPV 7.7 fl (7.5-11.1) 10/12/17 06:35 CMP Sodium 138 mmol/L (136-145) 10/11/17 06:00 Potassium 4.0 mmol/L (3.5-5.1) 10/11/17 06:00 Chloride 104 mmol/L (98-107) 10/11/17 06:00 Carbon Dioxide 24 mmol/L (21-32) 10/11/17 06:00 Anion Gap 10 (8-16) 10/11/17 06:00 BUN 12 mg/dL (7-18) 10/11/17 06:00 Creatinine 0.7 mg/dL (0.55-1.02) 10/11/17 06:00 Creat Clearance w eGFR > 60 (>60) 10/11/17 06:00 Calcium 7.4 mg/dL (8.5-10.1) L 10/11/17 06:00 Total Bilirubin 0.4 mg/dL (0.2-1.0) D 10/11/17 06:00 AST 17 U/L (15-37) 10/11/17 06:00 ALT 20 U/L (12-78) 10/11/17 06:00 Alkaline Phosphatase 63 U/L (45-117) 10/11/17 06:00 Total Protein 4.2 g/dl (6.4-8.2) L 10/11/17 06:00 Albumin 2.3 g/dl (3.4-5.0) L 10/11/17 06:00 Problem List - Problems (1) Anemia Code(s): D64.9 - ANEMIA, UNSPECIFIED Qualifiers: Anemia type: unspecified type Qualified Code(s): D64.9 - Anemia, unspecified Assessment/Plan Hold A/C EGD Continue the PPI Discussed with the patient Agree with 2u PRBC before EGD
[2017-10-12 09:40] LABS: CHLORIDE 101 mmol/L (98-107); POTASSIUM 3.5 mmol/L (3.5-5.1); SODIUM 139 mmol/L (136-145)
[2017-10-12] MEDS: ELECTROLYTE-148 SOLN 1,000 ML IV SCH (09:57)
[2017-10-12] MEDS: CEFTRIAXONE 1 G/50 ML PREMIX 50 ML IVPB SCH (10:00)
[2017-10-12 10:27] LABS: ALBUMIN 2.2 g/dl (3.4-5.0); ALK PHOS 65 U/L (45-117); ANION GAP 11 (8-16); BILIRUBIN,TOTAL 0.6 mg/dL (0.2-1.0); BLOOD UREA NITROGEN 9 mg/dL (7-18); CALCIUM 7.8 mg/dL (8.5-10.1); CO2 27 mmol/L (21-32); CREATININE 0.8 mg/dL (0.55-1.02); GLUCOSE,RANDOM 89 mg/dL (74-106); SGOT/AST 15 U/L (15-37); SGPT/ALT 16 U/L (12-78); TOT PROT 4.5 g/dl (6.4-8.2)
[2017-10-12] MEDS: DULoxetine HCL 30 MG CAPSULE.DR (FP) PO SCH (11:11)
[2017-10-12] MEDS: CHOLECALCIFEROL (VITAMIN D3) 1,000 UNIT TABLET (FP) PO SCH (11:11)
[2017-10-12] MEDS: BACLOFEN 10 MG TABLET (FP) PO SCH ×2 (11:11→21:01)
[2017-10-12] MEDS: TERIFLUNOMIDE 7 MG PO SCH (11:12)
--- NOTE | 2017-10-12 11:54 | PN ---
Progress Note (short form) - Note Progress Note: Ortho Pt seen and examined s/p right femur orif pod #2 Selected Entries 10/12/17 06:00 Temperature 99.7 F H Pulse Rate 97 H Respiratory 20 Rate Blood Pressure 132/74 Laboratory Tests 10/12/17 06:35 WBC 9.9 Hgb 7.7 L Hct 22.7 L Plt Count 221 dressing c/d/i, calf soft, nt nvi a/p scheduled for EGD PT NWB oob to chair d/c planning
--- NOTE | 2017-10-12 14:44 | PN ---
Physical Exam: SUBJECTIVE: Patient seen and examined. She c/o hip pain. Denies sob, palpitations, dizziness, OBJECTIVE: Vital Signs Period Temp Pulse Resp BP Sys/Obrien Pulse Ox Last 24 Hr 98 F-99.9 F 86-113 20-20 114-154/46-76 97-98 PE Neuro: alert, awake, cn 2-12intact Pulm: L base crackles, no wheezing CV: s1 s2 rrr + 3/6 systolic murmur Abd: s nt nd + bs Ext: R hip dressing + tenderness, no le edema Laboratory Results - last 24 hr 10/07/17 10/12/17 10/12/17 11:22 06:35 06:35 WBC 9.9 RBC 2.77 L Hgb 7.7 L Hct 22.7 L MCV 81.8 MCH 27.8 MCHC 33.9 RDW 19.0 H Plt Count 221 MPV 7.7 Neutrophils % 78.6 Lymphocytes % 6.3 L Monocytes % 14.1 H Eosinophils % 0.7 D Basophils % 0.3 Sodium 139 Potassium 3.5 Chloride 101 Carbon Dioxide 27 Anion Gap 11 BUN 9 Creatinine 0.8 Creat Clearance w eGFR > 60 Random Glucose 89 Calcium 7.8 L Total Bilirubin 0.6 D AST 15 ALT 16 Alkaline Phosphatase 65 Total Protein 4.5 L Albumin 2.2 L Blood Type O POSITIVE Antibody Screen Negative Crossmatch See Detail Active Medications Generic Name Dose Route Start Last Admin Trade Name Freq PRN Reason Stop Dose Admin Acetaminophen 650 mg 10/10/17 17:13 10/11/17 21:23 Tylenol - PO 650 mg Q4H PRN Administration PAIN OR FEVER Atorvastatin Calcium 20 mg 10/10/17 22:00 10/11/17 21:21 Lipitor - PO 20 mg HS SEAMUS Administration Baclofen 10 mg 10/10/17 22:00 10/12/17 11:11 Lioresal - PO 10 mg BID SEAMUS Administration Cholecalciferol 2,000 unit 10/11/17 10:00 10/12/17 11:11 Vitamin D3 - PO 2,000 unit DAILY SEAMUS Administration Diazepam 5 mg 10/10/17 17:13 Valium - PO BID PRN ANXIETY Docusate Sodium 100 mg 10/10/17 22:00 10/12/17 05:37 Colace - PO Not Given TID SEAMUS Duloxetine HCl 60 mg 10/11/17 10:00 10/12/17 11:11 Cymbalta - PO 60 mg DAILY SEAMUS Administration Parenteral Electrolytes 1,000 mls @ 75 mls/hr 10/10/17 17:15 10/12/17 09:57 Plasma-Lyte 148 - IV 75 mls/hr ASDIR SEAMUS Administration CEFTRIAXONE 1 G/50 ML PREMIX 50 mls @ 100 mls/hr 10/11/17 10:00 10/12/17 10: 00 Ceftriaxone 1 Gm-D5w Bag IVPB 100 mls/hr DAILY SEAMUS Administration Pantoprazole Sodium 160 mg/ 290 mls @ 14.5 mls/hr 10/11/17 04:15 10/12/17 01: 07 Dextrose IVPB Not Given Q20H SEAMUS 8 MG/HR Morphine Sulfate 2 mg 10/10/17 17:13 Morphine Injection - IVPUSH Q4H PRN PAIN LEVEL 6-10 Non-Formulary Medication 7 mg 10/11/17 10:00 10/12/17 11:12 Teriflunomide [Aubagio] PO 7 mg DAILY SEAMUS Administration Ondansetron HCl 4 mg 10/10/17 17:06 Zofran Injection IVPUSH Q6H PRN NAUSEA AND/OR VOMITING Ondansetron HCl 4 mg 10/10/17 17:13 Zofran Injection IVPUSH Q4H PRN NAUSEA Promethazine HCl 12.5 mg 10/10/17 17:06 Phenergan Injection - IVPUSH Q6H PRN NAUSEA-FOR RESCUE AFTER 15 MIN Imaging: - Hip xray: displaced fracture of R mid femur on x-ray. - CTAP: No signs of intra-abdominal organ injury or acute pathology within the abdomen or pelvis - Moderate soft tissue swelling/hematoma over the left zygomatic arch and left lateral aspect of the cheek w/o fracture. Assessment: 76 year old female with pmhx of MS (using RW at home), HTN, s/p R THR C/B prosthetic dislocation in 2014 admitted s/p fall with resulting R hip fracture. Plan: 1. Periprosthetic right femur fracture - s/p repair 10/10 - NWB, OOB to chair - Ortho seeing 2. Acute GI bleed, guiac + - Possibly d/t ASA usage - EGD tomorrow - Continue ppi gtt - Transfuse 2uprbc today for optimization 3. Acute blood loss anemia - Transfused 4units packed cells, 1units plts (10/08) - Iron studies noted, iron sat 14 4. AARON - Resolved 5. Hyperlipidemia - Continue Zocor 6. Multiple sclerosis - Continue Aubagio, Baclofen 7. Depression/anxiety - Continue Valium, Cymbalta 8. UTI - UA negative, urine cx lactobacillis first offense, asymptomatic - Will stop Ceftriaxone 9. HTN - Mildly elevated, however likely pain induced - Trend 10. DVT: SCDs, hold chemical ac d/t bleed Visit type - Emergency Visit Emergency Visit: Yes ED Registration Date: 10/07/17 Care time: The patient presented to the Emergency Department on the above date and was hospitalized for further evaluation of their emergent condition. - New Patient This patient is new to me today: Yes Date on this admission: 10/12/17 - Critical Care Critical Care patient: No
[2017-10-12] MEDS: ATORVASTATIN CA 20 MG TABLET (FP) PO SCH (21:01)
[2017-10-12] MEDS: ACETAMINOPHEN 325 MG TABLET (FP) PO PRN (21:53)
[2017-10-13] MEDS: DOCUSATE SODIUM 100 MG CAPSULE (FP) PO SCH ×3 (05:39→21:43)
[2017-10-13] MEDS: PANTOPRAZOLE SODIUM 160 MG in DEXTROSE 5%-WATER - 290 ML IVPB SCH (06:28)
[2017-10-13] MEDS ORDERED: PROPOFOL 20 ML ONE ×2 (08:59)
[2017-10-13] MEDS ORDERED: MIDAZOLAM HCL 2 MG/2 ML SINGLE DOSE VIAL ONE (08:59)
--- NOTE | 2017-10-13 09:17 | PROC ---
Endoscopy Procedure Endoscopy procedure completed. Please see scanned procedure report. Few small gastric erosions, otherwise normal EGD. Gastric biopsies taken. Colonoscopy when able to ambulate
--- NOTE | 2017-10-13 10:21 | PN ---
Progress Note (short form) - Note Progress Note: Pt seen and examined. She is s/p right femur surgery. Doing well. C/o pain, but better and not severe. AVSS no complaints H/H low, decreased to 7.7/22.7 RLE is grossly NVI Dressing CDI Overall doing well. Can DC/Transfer from an orthopedic pov
[2017-10-13] MEDS: CHOLECALCIFEROL (VITAMIN D3) 1,000 UNIT TABLET (FP) PO SCH (10:39)
[2017-10-13] MEDS: DULoxetine HCL 30 MG CAPSULE.DR (FP) PO SCH (10:39)
[2017-10-13] MEDS: PANTOPRAZOLE 40 MG TABLET (FP) PO SCH (10:40)
[2017-10-13] MEDS: BACLOFEN 10 MG TABLET (FP) PO SCH ×2 (10:40→21:43)
[2017-10-13] MEDS: TERIFLUNOMIDE 7 MG PO SCH (10:41)
[2017-10-13] MEDS ORDERED: PT OWN MED DRAWER 7, Y5N ONE (10:53)
[2017-10-13 11:04] LABS: HEMATOCRIT 34.5 % (32.4-45.2); HEMOGLOBIN 11.4 GM/dL (10.7-15.3); MCH 27.1 pg (25.7-33.7); MCHC 32.9 g/dl (32.0-36.0); MEAN CELL VOLUME 82.4 fl (80-96); MEAN PLT VOLUME 7.8 fl (7.5-11.1); PLATELET COUNT 219 K/MM3 (134-434); RBC 4.19 M/mm3 (3.60-5.2); RDW 17.2 % (11.6-15.6)
[2017-10-13 11:30] LABS: ALBUMIN 2.3 g/dl (3.4-5.0); ALK PHOS 96 U/L (45-117); ANION GAP 8 (8-16); BILIRUBIN,TOTAL 1.1 mg/dL (0.2-1.0); BLOOD UREA NITROGEN 9 mg/dL (7-18); CALCIUM 7.4 mg/dL (8.5-10.1); CHLORIDE 102 mmol/L (98-107); CO2 27 mmol/L (21-32); CREATININE 0.7 mg/dL (0.55-1.02); GLUCOSE,RANDOM 106 mg/dL (74-106); POTASSIUM 3.2 mmol/L (3.5-5.1); SGOT/AST 17 U/L (15-37); SGPT/ALT 14 U/L (12-78); SODIUM 137 mmol/L (136-145); TOT PROT 4.7 g/dl (6.4-8.2)
[2017-10-13] MEDS ORDERED: POTASSIUM CHLORIDE TABS 20 MEQ TABLET.ER (FP) PO ONE (14:00)
--- NOTE | 2017-10-13 15:33 | PN ---
Progress Note (short form) - Note Progress Note: Subjective: The patient was seen and examined at the bedside, she has no complaints at this time EGD performed today Current Medications Generic Name Dose Route Start Last Admin Trade Name Freq PRN Reason Stop Dose Admin Acetaminophen 650 mg 10/10/17 17:13 10/12/17 21:53 Tylenol - PO 650 mg Q4H PRN Administration PAIN OR FEVER Atorvastatin Calcium 20 mg 10/10/17 22:00 10/12/17 21:01 Lipitor - PO 20 mg HS SEAMUS Administration Baclofen 10 mg 10/10/17 22:00 10/13/17 10:40 Lioresal - PO 10 mg BID SEAMUS Administration Cholecalciferol 2,000 unit 10/11/17 10:00 10/13/17 10:39 Vitamin D3 - PO 2,000 unit DAILY SEAMUS Administration Diazepam 5 mg 10/10/17 17:13 Valium - PO BID PRN ANXIETY Docusate Sodium 100 mg 10/10/17 22:00 10/13/17 13:17 Colace - PO Not Given TID SEAMUS Duloxetine HCl 60 mg 10/11/17 10:00 10/13/17 10:39 Cymbalta - PO 60 mg DAILY SEAMUS Administration Morphine Sulfate 2 mg 10/10/17 17:13 Morphine Injection - IVPUSH Q4H PRN PAIN LEVEL 6-10 Non-Formulary Medication 7 mg 10/11/17 10:00 10/13/17 10:41 Teriflunomide [Aubagio] PO 7 mg DAILY SEAMUS Administration Ondansetron HCl 4 mg 10/10/17 17:06 Zofran Injection IVPUSH Q6H PRN NAUSEA AND/OR VOMITING Ondansetron HCl 4 mg 10/10/17 17:13 Zofran Injection IVPUSH Q4H PRN NAUSEA Pantoprazole Sodium 40 mg 10/13/17 10:00 10/13/17 10:40 Protonix - PO 40 mg DAILY SEAMUS Administration Promethazine HCl 12.5 mg 10/10/17 17:06 Phenergan Injection - IVPUSH Q6H PRN NAUSEA-FOR RESCUE AFTER 15 MIN Objective: Vital Signs Period Temp Pulse Resp BP Sys/Obrien Pulse Ox Last 24 Hr 97.8 F-99.9 F 85-122 18-20 121-150/51-90 97-100 Physical Exam: General: NAD, A&Ox3 Lungs: CTA bilaterally HearT: RRR, S1S2, +murmur Abd: Soft, non-tender, non-distended. Normoactive bowel sounds Ext: RLE with lateral dressing, tenderness. Warm, well-perfused. 2+ DP/PT bilaterally CBCD WBC 12.0 K/mm3 (4.0-10.0) H 10/13/17 10:45 RBC 4.19 M/mm3 (3.60-5.2) D 10/13/17 10:45 Hgb 11.4 GM/dL (10.7-15.3) D 10/13/17 10:45 Hct 34.5 % (32.4-45.2) D 10/13/17 10:45 MCV 82.4 fl (80-96) 10/13/17 10:45 MCHC 32.9 g/dl (32.0-36.0) 10/13/17 10:45 RDW 17.2 % (11.6-15.6) H 10/13/17 10:45 Plt Count 219 K/MM3 (134-434) 10/13/17 10:45 MPV 7.8 fl (7.5-11.1) 10/13/17 10:45 CMP Sodium 137 mmol/L (136-145) 10/13/17 10:45 Potassium 3.2 mmol/L (3.5-5.1) L 10/13/17 10:45 Chloride 102 mmol/L (98-107) 10/13/17 10:45 Carbon Dioxide 27 mmol/L (21-32) 10/13/17 10:45 Anion Gap 8 (8-16) 10/13/17 10:45 BUN 9 mg/dL (7-18) 10/13/17 10:45 Creatinine 0.7 mg/dL (0.55-1.02) 10/13/17 10:45 Creat Clearance w eGFR > 60 (>60) 10/13/17 10:45 Random Glucose 106 mg/dL (74-106) 10/13/17 10:45 Calcium 7.4 mg/dL (8.5-10.1) L 10/13/17 10:45 Total Bilirubin 1.1 mg/dL (0.2-1.0) H D 10/13/17 10:45 AST 17 U/L (15-37) 10/13/17 10:45 ALT 14 U/L (12-78) 10/13/17 10:45 Alkaline Phosphatase 96 U/L (45-117) 10/13/17 10:45 Total Protein 4.7 g/dl (6.4-8.2) L 10/13/17 10:45 Albumin 2.3 g/dl (3.4-5.0) L 10/13/17 10:45 CARDIAC ENZYMES Creatine Kinase 210 IU/L (26-192) H 10/09/17 07:30 Microbiology 10/07/17 13:33 Blood - Peripheral Venous Blood Culture - Final NO GROWTH AFTER 5 DAYS INCUBATION 10/07/17 13:33 Blood - Peripheral Venous Blood Culture - Final NO GROWTH AFTER 5 DAYS INCUBATION 10/07/17 12:27 Urine - Urine Clean Catch Urine Culture - Final Lactobacillus Species Assessment: This is a 76 year old female with PMHx of MS (uses rolling walker at home), HTN, s/p right THR c/b prosthetic dislocation in 2015 admitted s/p fall with resulting right hip fracture. Plan: 1) Periprosthetic right femur fracture - S/p right ORIF - NWB, OOB to chair - Appreciate ortho consult 2) Acute GI bleed, guiac + - S/p EGD: few small gastric erosions. Gastric biopsies taken - Colonoscopy when can ambulate - S/p PRBC transfusions yesterday - Appreciate GI consult 3) Acute blood loss anemia - S/p PRBC transfusion 4) AARON - Resolved 5) Hyperlipidemia: - Continue Zocor 6) MS - Continue Aubgio - Continue Baclofen 7) F/E/N: - Regular diet - Monitor electrolytes 8) Prophylaxis: - Hold all chemical DVT prophylaxis 2/2 GI bleed 9) Dispo: - Requires continued inpatient care - PT reevaluation tomorrow CODE STATUS: FULL CODE Visit type - Emergency Visit Emergency Visit: Yes ED Registration Date: 10/07/17 Care time: The patient presented to the Emergency Department on the above date and was hospitalized for further evaluation of their emergent condition. - New Patient This patient is new to me today: Yes Date on this admission: 10/13/17 - Critical Care Critical Care patient: No
[2017-10-13] MEDS: ATORVASTATIN CA 20 MG TABLET (FP) PO SCH (21:43)
[2017-10-14] MEDS: DOCUSATE SODIUM 100 MG CAPSULE (FP) PO SCH ×3 (06:14→21:09)
[2017-10-14 08:41] LABS: HEMATOCRIT 33.6 % (32.4-45.2); HEMOGLOBIN 10.9 GM/dL (10.7-15.3); MCH 27.1 pg (25.7-33.7); MCHC 32.6 g/dl (32.0-36.0); MEAN CELL VOLUME 83.2 fl (80-96); MEAN PLT VOLUME 7.7 fl (7.5-11.1); PLATELET COUNT 276 K/MM3 (134-434); RBC 4.04 M/mm3 (3.60-5.2); RDW 17.9 % (11.6-15.6); WHITE BLOOD COUNT 12.2 K/mm3 (4.0-10.0)
[2017-10-14 08:44] LABS: ANION GAP 8 (8-16); BLOOD UREA NITROGEN 10 mg/dL (7-18); CALCIUM 7.6 mg/dL (8.5-10.1); CHLORIDE 102 mmol/L (98-107); CO2 27 mmol/L (21-32); CREATININE 0.6 mg/dL (0.55-1.02); GLUCOSE,RANDOM 82 mg/dL (74-106); POTASSIUM 3.8 mmol/L (3.5-5.1); SODIUM 137 mmol/L (136-145)
--- NOTE | 2017-10-14 09:59 | PN ---
Progress Note (short form) - Note Progress Note: Ortho Pt seen and examined s/p right femur orif Selected Entries 10/14/17 09:36 Temperature 99.4 F Pulse Rate 91 H Respiratory 18 Rate Blood Pressure 168/80 Laboratory Tests 10/14/17 07:52 WBC 12.2 H Hgb 10.9 Hct 33.6 Plt Count 276 D dressing c/d/i, calf soft, nt nvi a/p PT NWB oob to chair d/c planning
[2017-10-14] MEDS: PANTOPRAZOLE 40 MG TABLET (FP) PO SCH (10:01)
[2017-10-14] MEDS: BACLOFEN 10 MG TABLET (FP) PO SCH ×2 (10:01→21:09)
[2017-10-14] MEDS: DULoxetine HCL 30 MG CAPSULE.DR (FP) PO SCH (10:01)
[2017-10-14] MEDS: CHOLECALCIFEROL (VITAMIN D3) 1,000 UNIT TABLET (FP) PO SCH (10:01)
[2017-10-14] MEDS: TERIFLUNOMIDE 7 MG PO SCH (10:02)
[2017-10-14] MEDS: ACETAMINOPHEN 325 MG TABLET (FP) PO PRN ×2 (10:10→18:31)
--- NOTE | 2017-10-14 13:38 | PN ---
Progress Note, Physician History of Present Illness: No events. OOB. Comfortable. No bleeding - Current Medication List Current Medications: Active Medications Acetaminophen (Tylenol -) 650 mg PO Q4H PRN PRN Reason: PAIN OR FEVER Last Admin: 10/14/17 10:10 Dose: 650 mg Atorvastatin Calcium (Lipitor -) 20 mg PO HS [facility] Last Admin: 10/13/17 21:43 Dose: 20 mg Baclofen (Lioresal -) 10 mg PO BID [facility] Last Admin: 10/14/17 10:01 Dose: 10 mg Cholecalciferol (Vitamin D3 -) 2,000 unit PO DAILY [facility] Last Admin: 10/14/17 10:01 Dose: 2,000 unit Diazepam (Valium -) 5 mg PO BID PRN PRN Reason: ANXIETY Last Admin: 10/13/17 21:43 Dose: 5 mg Docusate Sodium (Colace -) 100 mg PO TID [facility] Last Admin: 10/14/17 06:14 Dose: 100 mg Duloxetine HCl (Cymbalta -) 60 mg PO DAILY [facility] Last Admin: 10/14/17 10:01 Dose: 60 mg Non-Formulary Medication (Teriflunomide [Aubagio]) 7 mg PO DAILY [facility] Last Admin: 10/14/17 10:02 Dose: 7 mg Ondansetron HCl (Zofran Injection) 4 mg IVPUSH Q6H PRN PRN Reason: NAUSEA AND/OR VOMITING Ondansetron HCl (Zofran Injection) 4 mg IVPUSH Q4H PRN PRN Reason: NAUSEA Pantoprazole Sodium (Protonix -) 40 mg PO DAILY [facility] Last Admin: 10/14/17 10:01 Dose: 40 mg Promethazine HCl (Phenergan Injection -) 12.5 mg IVPUSH Q6H PRN PRN Reason: NAUSEA-FOR RESCUE AFTER 15 MIN - Objective Vital Signs: Vital Signs Temperature 99.4 F 10/14/17 09:36 Pulse Rate 91 H 10/14/17 09:36 Respiratory Rate 18 10/14/17 09:36 Blood Pressure 168/80 10/14/17 09:36 O2 Sat by Pulse Oximetry (%) 100 10/14/17 09:00 Constitutional: Yes: No Distress, Calm Gastrointestinal: Yes: Normal Bowel Sounds, Soft. No: Melena, Tenderness, Vomiting Labs: CBC, BMP 10/14/17 07:52 10/14/17 07:52 INR, PTT INR 1.05 (0.82-1.09) 10/07/17 11:50 CBCD WBC 12.2 K/mm3 (4.0-10.0) H 10/14/17 07:52 RBC 4.04 M/mm3 (3.60-5.2) 10/14/17 07:52 Hgb 10.9 GM/dL (10.7-15.3) 10/14/17 07:52 Hct 33.6 % (32.4-45.2) 10/14/17 07:52 MCV 83.2 fl (80-96) 10/14/17 07:52 MCHC 32.6 g/dl (32.0-36.0) 10/14/17 07:52 RDW 17.9 % (11.6-15.6) H 10/14/17 07:52 Plt Count 276 K/MM3 (134-434) D 10/14/17 07:52 MPV 7.7 fl (7.5-11.1) 10/14/17 07:52 CMP Sodium 137 mmol/L (136-145) 10/14/17 07:52 Potassium 3.8 mmol/L (3.5-5.1) 10/14/17 07:52 Chloride 102 mmol/L (98-107) 10/14/17 07:52 Carbon Dioxide 27 mmol/L (21-32) 10/14/17 07:52 Anion Gap 8 (8-16) 10/14/17 07:52 BUN 10 mg/dL (7-18) 10/14/17 07:52 Creatinine 0.6 mg/dL (0.55-1.02) 10/14/17 07:52 Creat Clearance w eGFR > 60 (>60) 10/13/17 10:45 Calcium 7.6 mg/dL (8.5-10.1) L 10/14/17 07:52 Total Bilirubin 1.1 mg/dL (0.2-1.0) H D 10/13/17 10:45 AST 17 U/L (15-37) 10/13/17 10:45 ALT 14 U/L (12-78) 10/13/17 10:45 Alkaline Phosphatase 96 U/L (45-117) 10/13/17 10:45 Total Protein 4.7 g/dl (6.4-8.2) L 10/13/17 10:45 Albumin 2.3 g/dl (3.4-5.0) L 10/13/17 10:45 Problem List - Problems (1) Anemia Code(s): D64.9 - ANEMIA, UNSPECIFIED Qualifiers: Anemia type: unspecified type Qualified Code(s): D64.9 - Anemia, unspecified Assessment/Plan Continue current care The patient will discuss scheduling colonoscopy as OP with her PCP.
--- NOTE | 2017-10-14 14:43 | PN ---
Progress Note (short form) - Note Progress Note: Subjective: The patient was seen and examined at the bedside, she has no complaints at this time Called by RN that patient had one episode of vomiting, febrile to 100.4, tachycardia after lunch today. Discharge on hold Current Medications Generic Name Dose Route Start Last Admin Trade Name Freq PRN Reason Stop Dose Admin Acetaminophen 650 mg 10/10/17 17:13 10/14/17 10:10 Tylenol - PO 650 mg Q4H PRN Administration PAIN OR FEVER Atorvastatin Calcium 20 mg 10/10/17 22:00 10/13/17 21:43 Lipitor - PO 20 mg HS SEAMUS Administration Baclofen 10 mg 10/10/17 22:00 10/14/17 10:01 Lioresal - PO 10 mg BID SEAMUS Administration Cholecalciferol 2,000 unit 10/11/17 10:00 10/14/17 10:01 Vitamin D3 - PO 2,000 unit DAILY SEAMUS Administration Diazepam 5 mg 10/10/17 17:13 10/13/17 21:43 Valium - PO 5 mg BID PRN Administration ANXIETY Docusate Sodium 100 mg 10/10/17 22:00 10/14/17 06:14 Colace - PO 100 mg TID SEAMUS Administration Duloxetine HCl 60 mg 10/11/17 10:00 10/14/17 10:01 Cymbalta - PO 60 mg DAILY SEAMUS Administration Non-Formulary Medication 7 mg 10/11/17 10:00 10/14/17 10:02 Teriflunomide [Aubagio] PO 7 mg DAILY SEAMUS Administration Ondansetron HCl 4 mg 10/10/17 17:06 Zofran Injection IVPUSH Q6H PRN NAUSEA AND/OR VOMITING Ondansetron HCl 4 mg 10/10/17 17:13 Zofran Injection IVPUSH Q4H PRN NAUSEA Pantoprazole Sodium 40 mg 10/13/17 10:00 10/14/17 10:01 Protonix - PO 40 mg DAILY SEAMUS Administration Promethazine HCl 12.5 mg 10/10/17 17:06 Phenergan Injection - IVPUSH Q6H PRN NAUSEA-FOR RESCUE AFTER 15 MIN Objective: Vital Signs Period Temp Pulse Resp BP Sys/Obrien Pulse Ox Last 24 Hr 97.6 F-99.4 F 79-106 18-20 115-168/70-85 100-100 Physical Exam: General: NAD, A&Ox3 Lungs: CTA bilaterally HearT: RRR, S1S2, +murmur Abd: Soft, non-tender, non-distended. Normoactive bowel sounds Ext: RLE with lateral dressing, tenderness. Warm, well-perfused. 2+ DP/PT bilaterally CBCD WBC 12.2 K/mm3 (4.0-10.0) H 10/14/17 07:52 RBC 4.04 M/mm3 (3.60-5.2) 10/14/17 07:52 Hgb 10.9 GM/dL (10.7-15.3) 10/14/17 07:52 Hct 33.6 % (32.4-45.2) 10/14/17 07:52 MCV 83.2 fl (80-96) 10/14/17 07:52 MCHC 32.6 g/dl (32.0-36.0) 10/14/17 07:52 RDW 17.9 % (11.6-15.6) H 10/14/17 07:52 Plt Count 276 K/MM3 (134-434) D 10/14/17 07:52 MPV 7.7 fl (7.5-11.1) 10/14/17 07:52 CMP Sodium 137 mmol/L (136-145) 10/14/17 07:52 Potassium 3.8 mmol/L (3.5-5.1) 10/14/17 07:52 Chloride 102 mmol/L (98-107) 10/14/17 07:52 Carbon Dioxide 27 mmol/L (21-32) 10/14/17 07:52 Anion Gap 8 (8-16) 10/14/17 07:52 BUN 10 mg/dL (7-18) 10/14/17 07:52 Creatinine 0.6 mg/dL (0.55-1.02) 10/14/17 07:52 Creat Clearance w eGFR > 60 (>60) 10/13/17 10:45 Random Glucose 82 mg/dL (74-106) 10/14/17 07:52 Calcium 7.6 mg/dL (8.5-10.1) L 10/14/17 07:52 Total Bilirubin 1.1 mg/dL (0.2-1.0) H D 10/13/17 10:45 AST 17 U/L (15-37) 10/13/17 10:45 ALT 14 U/L (12-78) 10/13/17 10:45 Alkaline Phosphatase 96 U/L (45-117) 10/13/17 10:45 Total Protein 4.7 g/dl (6.4-8.2) L 10/13/17 10:45 Albumin 2.3 g/dl (3.4-5.0) L 10/13/17 10:45 CARDIAC ENZYMES Creatine Kinase 210 IU/L (26-192) H 10/09/17 07:30 Microbiology 10/07/17 13:33 Blood - Peripheral Venous Blood Culture - Final NO GROWTH AFTER 5 DAYS INCUBATION 10/07/17 13:33 Blood - Peripheral Venous Blood Culture - Final NO GROWTH AFTER 5 DAYS INCUBATION 10/07/17 12:27 Urine - Urine Clean Catch Urine Culture - Final Lactobacillus Species Assessment: This is a 76 year old female with PMHx of MS (uses rolling walker at home), HTN, s/p right THR c/b prosthetic dislocation in 2015 admitted s/p fall with resulting right hip fracture. Plan: 1) Periprosthetic right femur fracture - S/p right ORIF - NWB, OOB to chair - Appreciate ortho consult 2) Vomiting - Febrile this afternoon to 100.4 - Cultures sent 3) RLE swelling - F/u doppler to r/o DVT 4) Acute GI bleed, guiac + - S/p EGD: few small gastric erosions. Gastric biopsies taken - Colonoscopy when can ambulate - S/p PRBC transfusions yesterday - Appreciate GI consult 5) Acute blood loss anemia - S/p PRBC transfusion 6) AARON - Resolved 7) Hyperlipidemia: - Continue Zocor 8) MS - Continue Aubgio - Continue Baclofen 9) F/E/N: - Regular diet - Monitor electrolytes 10) Prophylaxis: - Will defer DVT prophylaxis to ortho 11) Dispo: - Requires continued inpatient care CODE STATUS: FULL CODE Visit type - Emergency Visit Emergency Visit: Yes ED Registration Date: 10/07/17 Care time: The patient presented to the Emergency Department on the above date and was hospitalized for further evaluation of their emergent condition. - New Patient This patient is new to me today: No - Critical Care Critical Care patient: No
[2017-10-14] MEDS: ENOXAPARIN NA (PORCINE) 30 MG/0.3 ML DISP.SYRIN SQ SCH (15:13)
--- NOTE | 2017-10-14 16:24 | PATH ---
Surgical Pathology Report Patient Name: JULITO PATTERSON [facility]. Rec. #: [id number] /Age/Gender: 1940 (Age: 76) / F Account: [id number] Location: [address] [place] [address] Taken: 10/13/2017 Received: 10/13/2017 Reported: 10/14/2017 Physicians: Annalee Oneill, ROBERT Licea M.D. Specimen(s) Received BX ANTRUM AND BODY Clinical History Preoperative diagnosis: Anemia Postoperative diagnosis: Gastritis Final Diagnosis STOMACH, ANTRUM/BODY, BIOPSY: GASTRIC ANTRAL AND BODY MUCOSA WITH MILD CHRONIC GASTRITIS. IMMUNOHISTOCHEMICAL STAIN FOR H. PYLORI IS NEGATIVE. Electronically Signed Akua Trujillo M.D. Gross Description Received in formalin, labeled "biopsy antrum/body" are 2 stewart, irregular portions of soft tissue averaging 0.3 cm. in greatest dimension. The specimens are submitted in toto in one cassette. 10/13/201710/13/2017
--- NOTE | 2017-10-14 19:42 | HOSP ---
Physical Examination Vital Signs: Vital Signs Temperature 100.3 F H 10/14/17 18:22 Pulse Rate 122 H 10/14/17 18:22 Respiratory Rate 18 10/14/17 18:22 Blood Pressure 169/77 10/14/17 18:22 O2 Sat by Pulse Oximetry (%) 100 10/14/17 09:00 Findings/Remarks: Spoke to SHARLENE Wilcox, patient remains tachycardic, and is sleeping but arousable. temp 100.3 at 1830, Tylenol given Lower extremity doppler negative for DVT Stat EKG ordered, discussed with night FINGERNAIL TECHNICIAN Continue to monitor closely, instructed Jeri who states endorsed to night RN Labs: CBC, BMP 10/14/17 07:52 10/14/17 07:52
[2017-10-14] MEDS: ATORVASTATIN CA 20 MG TABLET (FP) PO SCH (21:09)
[2017-10-15] MEDS: ACETAMINOPHEN 325 MG TABLET (FP) PO PRN (00:05)
[2017-10-15] MEDS: DOCUSATE SODIUM 100 MG CAPSULE (FP) PO SCH ×3 (06:08→21:36)
[2017-10-15 08:23] LABS: HEMATOCRIT 35.9 % (32.4-45.2); HEMOGLOBIN 11.6 GM/dL (10.7-15.3); MCH 27.1 pg (25.7-33.7); MCHC 32.4 g/dl (32.0-36.0); MEAN CELL VOLUME 83.7 fl (80-96); MEAN PLT VOLUME 7.6 fl (7.5-11.1); PLATELET COUNT 310 K/MM3 (134-434); RBC 4.29 M/mm3 (3.60-5.2); RDW 17.7 % (11.6-15.6); WHITE BLOOD COUNT 21.8 K/mm3 (4.0-10.0)
--- NOTE | 2017-10-15 08:48 | PN ---
Progress Note (short form) - Note Progress Note: Subjective: The patient was seen and examined at the bedside, she has no complaints at this time Called by RN that patient had one episode of vomiting, febrile to 100.4, tachycardia after lunch today. Discharge on hold Current Medications Generic Name Dose Route Start Last Admin Trade Name Freq PRN Reason Stop Dose Admin Acetaminophen 650 mg 10/10/17 17:13 10/14/17 10:10 Tylenol - PO 650 mg Q4H PRN Administration PAIN OR FEVER Atorvastatin Calcium 20 mg 10/10/17 22:00 10/13/17 21:43 Lipitor - PO 20 mg HS [facility] Administration Baclofen 10 mg 10/10/17 22:00 10/14/17 10:01 Lioresal - PO 10 mg BID [facility] Administration Cholecalciferol 2,000 unit 10/11/17 10:00 10/14/17 10:01 Vitamin D3 - PO 2,000 unit DAILY [facility] Administration Diazepam 5 mg 10/10/17 17:13 10/13/17 21:43 Valium - PO 5 mg BID PRN Administration ANXIETY Docusate Sodium 100 mg 10/10/17 22:00 10/14/17 06:14 Colace - PO 100 mg TID [facility] Administration Duloxetine HCl 60 mg 10/11/17 10:00 10/14/17 10:01 Cymbalta - PO 60 mg DAILY [facility] Administration Non-Formulary Medication 7 mg 10/11/17 10:00 10/14/17 10:02 Teriflunomide [Aubagio] PO 7 mg DAILY [facility] Administration Ondansetron HCl 4 mg 10/10/17 17:06 Zofran Injection IVPUSH Q6H PRN NAUSEA AND/OR VOMITING Ondansetron HCl 4 mg 10/10/17 17:13 Zofran Injection IVPUSH Q4H PRN NAUSEA Pantoprazole Sodium 40 mg 10/13/17 10:00 10/14/17 10:01 Protonix - PO 40 mg DAILY [facility] Administration Promethazine HCl 12.5 mg 10/10/17 17:06 Phenergan Injection - IVPUSH Q6H PRN NAUSEA-FOR RESCUE AFTER 15 MIN Objective: Vital Signs Period Temp Pulse Resp BP Sys/Obrien Pulse Ox Last 24 Hr 97.6 F-99.4 F 79-106 18-20 115-168/70-85 100-100 Physical Exam: General: NAD, A&Ox3 Lungs: CTA bilaterally HearT: RRR, S1S2, +murmur Abd: Soft, non-tender, non-distended. Normoactive bowel sounds Ext: RLE with lateral dressing, tenderness. Warm, well-perfused. 2+ DP/PT bilaterally CBCD WBC 12.2 K/mm3 (4.0-10.0) H 10/14/17 07:52 RBC 4.04 M/mm3 (3.60-5.2) 10/14/17 07:52 Hgb 10.9 GM/dL (10.7-15.3) 10/14/17 07:52 Hct 33.6 % (32.4-45.2) 10/14/17 07:52 MCV 83.2 fl (80-96) 10/14/17 07:52 MCHC 32.6 g/dl (32.0-36.0) 10/14/17 07:52 RDW 17.9 % (11.6-15.6) H 10/14/17 07:52 Plt Count 276 K/MM3 (134-434) D 10/14/17 07:52 MPV 7.7 fl (7.5-11.1) 10/14/17 07:52 CMP Sodium 137 mmol/L (136-145) 10/14/17 07:52 Potassium 3.8 mmol/L (3.5-5.1) 10/14/17 07:52 Chloride 102 mmol/L (98-107) 10/14/17 07:52 Carbon Dioxide 27 mmol/L (21-32) 10/14/17 07:52 Anion Gap 8 (8-16) 10/14/17 07:52 BUN 10 mg/dL (7-18) 10/14/17 07:52 Creatinine 0.6 mg/dL (0.55-1.02) 10/14/17 07:52 Creat Clearance w eGFR > 60 (>60) 10/13/17 10:45 Random Glucose 82 mg/dL (74-106) 10/14/17 07:52 Calcium 7.6 mg/dL (8.5-10.1) L 10/14/17 07:52 Total Bilirubin 1.1 mg/dL (0.2-1.0) H D 10/13/17 10:45 AST 17 U/L (15-37) 10/13/17 10:45 ALT 14 U/L (12-78) 10/13/17 10:45 Alkaline Phosphatase 96 U/L (45-117) 10/13/17 10:45 Total Protein 4.7 g/dl (6.4-8.2) L 10/13/17 10:45 Albumin 2.3 g/dl (3.4-5.0) L 10/13/17 10:45 CARDIAC ENZYMES Creatine Kinase 210 IU/L (26-192) H 10/09/17 07:30 Microbiology 10/07/17 13:33 Blood - Peripheral Venous Blood Culture - Final NO GROWTH AFTER 5 DAYS INCUBATION 10/07/17 13:33 Blood - Peripheral Venous Blood Culture - Final NO GROWTH AFTER 5 DAYS INCUBATION 10/07/17 12:27 Urine - Urine Clean Catch Urine Culture - Final Lactobacillus Species Assessment: This is a 76 year old female with PMHx of MS (uses rolling walker at home), HTN, s/p right THR c/b prosthetic dislocation in 2014 admitted s/p fall with resulting right hip fracture. Plan: 1) Fever, tachycardia, leukocytosis - Patient denies chills, cough, urinary frequency, urgency, dysuria. She denies any abdominal pain - Chest X-ray with no evidence of infiltrates - UA, urine culture ordered, uncollected (RN aware of order, straight cath order placed) - UA from 10/07 with lactobacillus species, no final c/d - Will start Ceftriaxone while awaiting further cultures - F/u ID consult, discussed with ID 2) Periprosthetic right femur fracture - S/p right ORIF on 10/10 - NWB, OOB to chair - Appreciate ortho consult 3) Vomiting - No vomiting since yesterday afternoon - Cultures sent 4) RLE swelling - RLE doppler negative for DVT 5) Acute GI bleed, guiac + - S/p EGD: few small gastric erosions. Gastric biopsies taken - Colonoscopy when can ambulate - S/p PRBC transfusions yesterday - Appreciate GI consult 6) Acute blood loss anemia - S/p PRBC transfusion 7) AARON - Resolved 8) Hyperlipidemia: - Continue Zocor 9) MS - Continue Aubgio - Continue Baclofen 10) F/E/N: - Regular diet - Monitor electrolytes 11) Prophylaxis: - Will defer DVT prophylaxis to ortho 12) Dispo: - Discussed care with Jalen - Requires continued inpatient care CODE STATUS: FULL CODE Visit type - Emergency Visit Emergency Visit: Yes ED Registration Date: 10/07/17 Care time: The patient presented to the Emergency Department on the above date and was hospitalized for further evaluation of their emergent condition. - New Patient This patient is new to me today: No - Critical Care Critical Care patient: No
[2017-10-15 09:05] LABS: CHLORIDE 104 mmol/L (98-107); SODIUM 136 mmol/L (136-145)
[2017-10-15 09:13] LABS: ALBUMIN 2.2 g/dl (3.4-5.0); ALK PHOS 143 U/L (45-117); ANION GAP 8 (8-16); BILIRUBIN,TOTAL 0.8 mg/dL (0.2-1.0); BLOOD UREA NITROGEN 14 mg/dL (7-18); CALCIUM 7.4 mg/dL (8.5-10.1); CO2 24 mmol/L (21-32); CREATININE 0.7 mg/dL (0.55-1.02); GLUCOSE,RANDOM 99 mg/dL (74-106); SGOT/AST 19 U/L (15-37); SGPT/ALT 16 U/L (12-78); TOT PROT 4.9 g/dl (6.4-8.2)
[2017-10-15 09:55] LABS: PLATELET ESTIMATE ADEQUATE
[2017-10-15] MEDS ORDERED: CEFTRIAXONE 1 G/50 ML PREMIX 50 ML IVPB SCH (10:00)
--- NOTE | 2017-10-15 10:05 | PN ---
Progress Note, Physician Chief Complaint: ID Note dictated This 76 year old female post right femer ORIF Oct 10 EGD 10/13 Today lethargic weak though arousable this is a change Yesterday had episode of nausea and vomiting few times no appetite after lunch Got Zofran Diane removed 10/07-10/11 5 units blood given when admitted after a fall with fracture at home No chills SOB urinary complaints - Current Medication List Current Medications: Active Medications Acetaminophen (Tylenol -) 650 mg PO Q4H PRN PRN Reason: PAIN OR FEVER Last Admin: 10/15/17 00:05 Dose: 650 mg Atorvastatin Calcium (Lipitor -) 20 mg PO HS [facility] Last Admin: 10/14/17 21:09 Dose: 20 mg Baclofen (Lioresal -) 10 mg PO BID [facility] Last Admin: 10/14/17 21:09 Dose: 10 mg Cholecalciferol (Vitamin D3 -) 2,000 unit PO DAILY [facility] Last Admin: 10/14/17 10:01 Dose: 2,000 unit Diazepam (Valium -) 5 mg PO BID PRN PRN Reason: ANXIETY Last Admin: 10/13/17 21:43 Dose: 5 mg Docusate Sodium (Colace -) 100 mg PO TID [facility] Last Admin: 10/15/17 06:08 Dose: 100 mg Duloxetine HCl (Cymbalta -) 60 mg PO DAILY [facility] Last Admin: 10/14/17 10:01 Dose: 60 mg Enoxaparin Sodium (Lovenox -) 30 mg SQ DAILY [facility] Last Admin: 10/14/17 15:13 Dose: 30 mg Sodium Chloride (Normal Saline -) 1,000 mls @ 83 mls/hr IV ASDIR [facility] CEFTRIAXONE 1 G/50 ML PREMIX (Ceftriaxone 1 Gm-D5w Bag) 50 mls @ 100 mls/hr IVPB DAILY [facility] Non-Formulary Medication (Teriflunomide [Aubagio]) 7 mg PO DAILY [facility] Last Admin: 10/14/17 10:02 Dose: 7 mg Ondansetron HCl (Zofran Injection) 4 mg IVPUSH Q6H PRN PRN Reason: NAUSEA AND/OR VOMITING Last Admin: 10/14/17 15:13 Dose: 4 mg Ondansetron HCl (Zofran Injection) 4 mg IVPUSH Q4H PRN PRN Reason: NAUSEA Pantoprazole Sodium (Protonix -) 40 mg PO DAILY [facility] Last Admin: 10/14/17 10:01 Dose: 40 mg Promethazine HCl (Phenergan Injection -) 12.5 mg IVPUSH Q6H PRN PRN Reason: NAUSEA-FOR RESCUE AFTER 15 MIN - Objective Vital Signs: Vital Signs Temperature 98.6 F 10/15/17 06:00 Pulse Rate 110 H 10/15/17 06:00 Respiratory Rate 18 10/15/17 06:00 Blood Pressure 141/75 10/15/17 06:00 O2 Sat by Pulse Oximetry (%) 100 10/14/17 22:00 Labs: CBC, BMP 10/15/17 07:00 10/15/17 07:00 INR, PTT INR 1.05 (0.82-1.09) 10/07/17 11:50 Problem List - Problems (1) Fever Code(s): R50.9 - FEVER, UNSPECIFIED (2) Anemia Code(s): D64.9 - ANEMIA, UNSPECIFIED Qualifiers: Anemia type: unspecified type Qualified Code(s): D64.9 - Anemia, unspecified (3) Femoral fracture Code(s): S72.90XA - UNSP FRACTURE OF UNSP FEMUR, INIT ENCNTR FOR CLOSED FRACTURE Qualifiers: Encounter type: initial encounter Femur location: shaft Fracture type: closed Fracture morphology: transverse Fracture alignment: displaced Laterality: right Qualified Code(s): S72.321A - Displaced transverse fracture of shaft of right femur, initial encounter for closed fracture Assessment/Plan Laboratory Tests 10/07/17 10/13/17 10/14/17 11:50 10:45 07:52 WBC 12.0 H 12.2 H Hgb Hct Plt Count Neutrophils % (Manual) Band Neutrophils % Lymphocytes % (Manual) Monocytes % (Manual) BUN Creatinine Creat Clearance w eGFR Total Bilirubin AST ALT Alkaline Phosphatase Ur Leukocyte Esterase Negative 10/15/17 10/15/17 07:00 07:00 WBC 21.8 H D Hgb 11.6 Hct 35.9 Plt Count 310 Neutrophils % (Manual) 84.0 H Band Neutrophils % 13.0 Lymphocytes % (Manual) 3.0 L Monocytes % (Manual) 3 L BUN 14 Creatinine 0.7 Creat Clearance w eGFR > 60 Total Bilirubin 0.8 D AST 19 ALT 16 Alkaline Phosphatase 143 H Ur Leukocyte Esterase Assessment Fever post op day 5 post op Definitely a change of clinical status Elevated WBC lethargy weak ?? pneumonia LLL Treat for HAP Plan Blood and urine c/s and empiric Vancomycin and Cefepime
[2017-10-15] MEDS ORDERED: CEFEPIME 2 GM in DEXTROSE 5%-WATER - 100 ML IVPB SCH (11:00)
[2017-10-15] MEDS ORDERED: VANCOMYCIN 1,000 MG in DEXTROSE 5%-WATER - 250 ML IVPB SCH (11:00)
[2017-10-15] MEDS: SODIUM CHLORIDE 1,000 ML IV SCH (11:13)
[2017-10-15] MEDS: DULoxetine HCL 30 MG CAPSULE.DR (FP) PO SCH (11:13)
[2017-10-15] MEDS: PANTOPRAZOLE 40 MG TABLET (FP) PO SCH (11:14)
[2017-10-15] MEDS: BACLOFEN 10 MG TABLET (FP) PO SCH ×2 (11:14→21:36)
[2017-10-15] MEDS: ENOXAPARIN NA (PORCINE) 30 MG/0.3 ML DISP.SYRIN SQ SCH (11:14)
[2017-10-15] MEDS: CHOLECALCIFEROL (VITAMIN D3) 1,000 UNIT TABLET (FP) PO SCH (11:14)
[2017-10-15] MEDS: TERIFLUNOMIDE 7 MG PO SCH (11:17)
--- NOTE | 2017-10-15 11:48 | CONS ---
DATE OF CONSULTATION: DATE OF DICTATION: 10/15/2017 HISTORY OF PRESENT ILLNESS: This is a 76-year-old woman who I am asked to see status post right hip open reduction, internal fixation surgery. I am asked to see her now as there has apparently been a change in her mental status today in which she finds herself very lethargic and weak, apparently a significant change from yesterday. She was admitted on October [address] Edwards complaining of pain in the right hip area after a fall 2 days prior to admission. She did not lose consciousness according to the notes and needed assistance in order to get up noting at that time pain in the right hip and groin area. Upon evaluation in the emergency room, she was noted to have a periprosthetic right femur fracture. In addition, her hemoglobin was noted to be 3.9. She apparently takes occasional ibuprofen along with daily baby aspirin. She denied any history of melena, hematemesis, or rectal bleeding. She had a Diane catheter in for monitoring of intake and output, but this was discontinued several days ago. Yesterday, according to nursing staff, she experienced an episode of nausea and vomited a few times after lung according to the nursing staff and had to be given Zofran. She has had low-grade fever overnight and this morning and denies any chills, shortness of breath, cold, cough, abdominal pain, or urinary complaints. Patient underwent an EGD to evaluate her severe anemia on October 13. PAST MEDICAL HISTORY: Includes multiple sclerosis, hypertension, hyperlipidemia , depression, anxiety, total right hip replacement. HOME MEDICATIONS: Included aspirin, baclofen, simvastatin, ibuprofen, calcium, Valium, and something called Aubagio. ALLERGIES: None known. SOCIAL HISTORY: A many-year [id number]-prk-day smoker with no history of alcohol or substance abuse. She lives with her . No recent travel history. No pets or unusual hobbies. FAMILY HISTORY: Reviewed and noncontributory. REVIEW OF SYSTEMS: Respiratory: No cough, shortness of breath, coryza, sore throat. Cardiac: No chest pain, palpitations, syncope, murmur. Gastrointestinal: Currently no abdominal pain, nausea, vomiting, diarrhea. Genitourinary: No dysuria, hematuria, or urinary frequency. PHYSICAL EXAMINATION: General: She was a thin woman weighing 93 pounds in no acute distress, lethargic, but arousable and coherent and oriented. Vital signs: The temperature currently documented was 98.6, though she feels warm, her pulse is 110, blood pressure 141/75, respirations 18. Neck: Supple, with no adenopathy. Lungs: Clear to percussion with diminished breath sounds at the bases. Heart: S1, S2, tachycardic with a 2/6 systolic murmur noted at the lower sternal border and apex. Abdomen: Soft, nontender, without hepatosplenomegaly. Extremities: Revealed swelling of the right leg with a right hip dressing noted. LABORATORY DATA: The white count 21.8 (was 12.2 yesterday), hemoglobin 11.6, platelets 310. BUN 14, creatinine 0.7, bilirubin 0.8, alkaline phosphatase 143 , AST 19. No urinalysis currently available. Two sets of blood cultures obtained yesterday as of this morning pending and no growth. Previous blood cultures from October 07 showed no growth, lactobacillus species in the urinalysis. Chest x-ray was reviewed, showed what appeared to be a left pleural effusion with possible atelectasis or infiltrate noted at the left base. ASSESSMENT: 1. A 76-year-old female now day 5 postoperative periprosthetic hip fracture. I was sked to see for evaluation of fever, alteration of mental status with lethargy and leukocytosis, all of which might be consistent with an infection. As to source of infection, urinary tract and/or pneumonia in the left lower lobe following a recent EGD with anesthesia 2 days ago. Additional findings today include diarrhea noted by the nursing staff. SHe apparently had doses of Ceftriaxone this admission. 2. History of severe anemia status post 5 units of blood transfusion on admission 3. History of weight loss, over the last year. Possibility of an underlying neoplasm is considered. PLAN: For now, obtain blood and urine cultures. Empiric therapy with vancomycin and cefepime. Will send stool for C. difficile along with influenza screening and obtain an echocardiogram to further evaluate the murmur. start therapy with oral vancomcyin and IV metronidazole considering possibility of C diff infection MICHELLE BOSTON M.D. JOSE ENRIQUE/[id number] [facility]
[2017-10-15] MEDS: POTASSIUM CHLORIDE 10 MEQ in SODIUM CHLORIDE 100 ML IVPB SCH ×3 (12:40→15:36)
--- NOTE | 2017-10-15 12:55 | EKG ---
Test Reason : Blood Pressure : / mmHG Vent. Rate : 111 BPM Atrial Rate : 111 BPM P-R Int : 138 ms QRS Dur : 088 ms QT Int : 358 ms P-R-T Axes : 076 065 075 degrees QTc Int : 486 ms SINUS TACHYCARDIA WITH OCCASIONAL PREMATURE VENTRICULAR COMPLEXES POSSIBLE LEFT ATRIAL ENLARGEMENT BORDERLINE ECG WHEN COMPARED WITH ECG OF 07-OCT-2017 12:00, PREMATURE VENTRICULAR COMPLEXES ARE NOW PRESENT Confirmed by MARCELLUS TORRES, BENEDICTO ([id number]) on 10/15/2017 12:55:03 PM Referred By: Nicole DICKERSON Confirmed By:BENEDICTO GERMAIN MD
[2017-10-15 13:40] LABS: URINE APPEARANCE SLCLOUDY; URINE BILIRUBIN NEGATIVE (NEGATIVE); URINE BLOOD 1+ (NEGATIVE); URINE COLOR DK YELLOW; URINE GLUCOSE (UA) NEGATIVE (NEGATIVE); URINE KETONE TRACE (NEGATIVE); URINE LEUK ESTERASE NEGATIVE (NEGATIVE); URINE NITRITE NEGATIVE (NEGATIVE); URINE PROTEIN 1+ (NEGATIVE); URINE UROBILINOGEN NEGATIVE mg/dL (0.2-1.0)
[2017-10-15 13:52] LABS: EPI CELLS FEW /HPF (FEW); URINE BACTERIA RARE /hpf (NONE SEEN); URINE MUCUS RARE; YEAST MANY
[2017-10-15] MEDS: VANCOMYCIN 250 MG/5 ML ORAL SOLUTION PO SCH (17:10)
[2017-10-15] MEDS ORDERED: VANCOMYCIN 250 MG/5 ML ORAL SOLUTION PO SCH (18:00)
[2017-10-15] MEDS ORDERED: CEFEPIME HCL 2 GM VIAL (RESTRICTED TO ID) IVPB SCH (18:00)
[2017-10-15] MEDS: ATORVASTATIN CA 20 MG TABLET (FP) PO SCH (21:36)
[2017-10-16] MEDS: VANCOMYCIN 250 MG/5 ML ORAL SOLUTION PO SCH ×4 (00:14→17:31)
[2017-10-16] MEDS: DOCUSATE SODIUM 100 MG CAPSULE (FP) PO SCH ×3 (06:32→21:58)
[2017-10-16 08:01] LABS: HEMOGLOBIN 10.5 GM/dL (10.7-15.3); MCH 27.4 pg (25.7-33.7); MCHC 32.7 g/dl (32.0-36.0); MEAN CELL VOLUME 83.9 fl (80-96); MEAN PLT VOLUME 7.7 fl (7.5-11.1); PLATELET COUNT 314 K/MM3 (134-434); RBC 3.82 M/mm3 (3.60-5.2); RDW 18.3 % (11.6-15.6); WHITE BLOOD COUNT 17.5 K/mm3 (4.0-10.0)
[2017-10-16 08:42] LABS: ALBUMIN 1.9 g/dl (3.4-5.0); ANION GAP 8 (8-16); BLOOD UREA NITROGEN 10 mg/dL (7-18); CALCIUM 7.2 mg/dL (8.5-10.1); CHLORIDE 106 mmol/L (98-107); CO2 23 mmol/L (21-32); GLUCOSE,RANDOM 80 mg/dL (74-106); POTASSIUM 3.1 mmol/L (3.5-5.1); SODIUM 137 mmol/L (136-145)
[2017-10-16 08:46] LABS: ALK PHOS 115 U/L (45-117); BILIRUBIN,TOTAL 0.8 mg/dL (0.2-1.0); CREATININE 0.6 mg/dL (0.55-1.02); SGOT/AST 29 U/L (15-37); SGPT/ALT 18 U/L (12-78); TOT PROT 4.4 g/dl (6.4-8.2)
[2017-10-16] MEDS: SODIUM CHLORIDE 1,000 ML IV SCH (09:07)
[2017-10-16] MEDS: ENOXAPARIN NA (PORCINE) 30 MG/0.3 ML DISP.SYRIN SQ SCH (09:07)
[2017-10-16] MEDS: PANTOPRAZOLE 40 MG TABLET (FP) PO SCH (09:07)
[2017-10-16] MEDS: DULoxetine HCL 30 MG CAPSULE.DR (FP) PO SCH (09:07)
[2017-10-16] MEDS: CHOLECALCIFEROL (VITAMIN D3) 1,000 UNIT TABLET (FP) PO SCH (09:07)
[2017-10-16] MEDS: BACLOFEN 10 MG TABLET (FP) PO SCH ×2 (09:09→21:58)
--- NOTE | 2017-10-16 09:32 | PN ---
Progress Note (short form) - Note Progress Note: Subjective: The patient was seen and examined at the bedside, she has no complaints at this time. She reports feeling better and is alert, awake, and eating her breakfast Current Medications Generic Name Dose Route Start Last Admin Trade Name Freq PRN Reason Stop Dose Admin Acetaminophen 650 mg 10/10/17 17:13 10/15/17 00:05 Tylenol - PO 650 mg Q4H PRN Administration PAIN OR FEVER Atorvastatin Calcium 20 mg 10/10/17 22:00 10/15/17 21:36 Lipitor - PO 20 mg HS [facility] Administration Baclofen 10 mg 10/10/17 22:00 10/16/17 09:09 Lioresal - PO 10 mg BID [facility] Administration Cholecalciferol 2,000 unit 10/11/17 10:00 10/16/17 09:07 Vitamin D3 - PO 2,000 unit DAILY [facility] Administration Docusate Sodium 100 mg 10/10/17 22:00 10/16/17 06:32 Colace - PO Not Given TID [facility] Duloxetine HCl 60 mg 10/11/17 10:00 10/16/17 09:07 Cymbalta - PO 60 mg DAILY [facility] Administration Enoxaparin Sodium 30 mg 10/14/17 15:00 10/16/17 09:07 Lovenox - SQ 30 mg DAILY [facility] Administration Sodium Chloride 1,000 mls @ 83 mls/hr 10/15/17 09:00 10/16/17 09:07 Normal Saline - IV 83 mls/hr ASDIR [facility] Administration Metronidazole 500 mg in 100 mls @ 100 mls/hr 10/15/17 12:28 10/16/17 09:08 Flagyl 500mg Premixed Ivpb - IVPB 100 mls/hr Q8H-IV [facility] Administration Non-Formulary Medication 7 mg 10/11/17 10:00 10/15/17 11:17 Teriflunomide [Aubagio] PO 7 mg DAILY [facility] Administration Ondansetron HCl 4 mg 10/10/17 17:06 10/14/17 15:13 Zofran Injection IVPUSH 4 mg Q6H PRN Administration NAUSEA AND/OR VOMITING Ondansetron HCl 4 mg 10/10/17 17:13 Zofran Injection IVPUSH Q4H PRN NAUSEA Pantoprazole Sodium 40 mg 10/13/17 10:00 10/16/17 09:07 Protonix - PO 40 mg DAILY [facility] Administration Potassium Chloride 40 meq 10/16/17 09:30 K-Dur - PO 10/16/17 09:31 ONCE ONE Promethazine HCl 12.5 mg 10/10/17 17:06 Phenergan Injection - IVPUSH Q6H PRN NAUSEA-FOR RESCUE AFTER 15 MIN Vancomycin HCl 125 mg 10/15/17 12:26 10/16/17 06:32 Vancomycin Oral Solution PO 125 mg Q6HPO [facility] Administration Objective: Vital Signs Period Temp Pulse Resp BP Sys/Obrien Pulse Ox Last 24 Hr 97.6 F-98.0 F 98-116 20-20 119-140/62-79 97 Physical Exam: General: NAD, A&Ox3 Lungs: CTA bilaterally HearT: RRR, S1S2, +murmur Abd: Soft, non-tender, non-distended. Normoactive bowel sounds Ext: RLE with lateral dressing, tenderness. Warm, well-perfused. 2+ DP/PT bilaterally CBCD WBC 17.5 K/mm3 (4.0-10.0) H 10/16/17 06:30 RBC 3.82 M/mm3 (3.60-5.2) 10/16/17 06:30 Hgb 10.5 GM/dL (10.7-15.3) L 10/16/17 06:30 Hct 32.0 % (32.4-45.2) L 10/16/17 06:30 MCV 83.9 fl (80-96) 10/16/17 06:30 MCHC 32.7 g/dl (32.0-36.0) 10/16/17 06:30 RDW 18.3 % (11.6-15.6) H 10/16/17 06:30 Plt Count 314 K/MM3 (134-434) 10/16/17 06:30 MPV 7.7 fl (7.5-11.1) 10/16/17 06:30 CMP Sodium 137 mmol/L (136-145) 10/16/17 06:30 Potassium 3.1 mmol/L (3.5-5.1) L 10/16/17 06:30 Chloride 106 mmol/L (98-107) 10/16/17 06:30 Carbon Dioxide 23 mmol/L (21-32) 10/16/17 06:30 Anion Gap 8 (8-16) 10/16/17 06:30 BUN 10 mg/dL (7-18) 10/16/17 06:30 Creatinine 0.6 mg/dL (0.55-1.02) 10/16/17 06:30 Creat Clearance w eGFR > 60 (>60) 10/16/17 06:30 Random Glucose 80 mg/dL (74-106) 10/16/17 06:30 Calcium 7.2 mg/dL (8.5-10.1) L 10/16/17 06:30 Total Bilirubin 0.8 mg/dL (0.2-1.0) 10/16/17 06:30 AST 29 U/L (15-37) 10/16/17 06:30 ALT 18 U/L (12-78) 10/16/17 06:30 Alkaline Phosphatase 115 U/L (45-117) 10/16/17 06:30 Total Protein 4.4 g/dl (6.4-8.2) L 10/16/17 06:30 Albumin 1.9 g/dl (3.4-5.0) L 10/16/17 06:30 CARDIAC ENZYMES Creatine Kinase 210 IU/L (26-192) H 10/09/17 07:30 Microbiology 10/14/17 16:45 Blood - Peripheral Venous Blood Culture - Preliminary NO GROWTH OBTAINED AFTER 24 HOURS, INCUBATION TO CONTINUE FOR 4 DAYS. 10/14/17 15:30 Blood - Peripheral Venous Blood Culture - Preliminary NO GROWTH OBTAINED AFTER 24 HOURS, INCUBATION TO CONTINUE FOR 4 DAYS. 10/15/17 12:34 Nasopharyngeal Aspirate Influenza Types A,B Antigen (JENNIFER) - Final 10/15/17 12:34 Nasopharyngeal Aspirate - Final 10/15/17 10:25 Stool Clostridium difficile Antigen (JENNIFER) - Final 10/15/17 10:25 Stool Clostridium difficile Toxin Assay - Final 10/07/17 13:33 Blood - Peripheral Venous Blood Culture - Final NO GROWTH AFTER 5 DAYS INCUBATION 10/07/17 13:33 Blood - Peripheral Venous Blood Culture - Final NO GROWTH AFTER 5 DAYS INCUBATION 10/07/17 12:27 Urine - Urine Clean Catch Urine Culture - Final Lactobacillus Species Assessment: This is a 76 year old female with PMHx of MS (uses rolling walker at home), HTN, s/p right THR c/b prosthetic dislocation in 2015 admitted s/p fall with resulting right hip fracture. Plan: 1) C.diff Ag and toxin positive - Leukocytosis improving - Patient denies chills, cough, urinary frequency, urgency, dysuria. She denies any abdominal pain - Started on po Vanco and IV flagyl - Appreciate ID consult 2) Periprosthetic right femur fracture - S/p right ORIF on 10/10 - NWB, OOB to chair - Appreciate ortho consult 3) RLE swelling - RLE doppler negative for DVT 4) Acute GI bleed, guiac + - S/p EGD: few small gastric erosions. Gastric biopsies taken - Colonoscopy when can ambulate - S/p PRBC transfusions yesterday - Appreciate GI consult 5) Acute blood loss anemia - S/p PRBC transfusion 6) Vomiting - Resolved 7) AARON - Resolved 8) Hyperlipidemia: - Continue Zocor 9) MS - Continue Aubgio - Continue Baclofen 10) F/E/N: - Regular diet - Monitor electrolytes 11) Prophylaxis: - Lovenox 30mg sq daily 12) Dispo: - Requires continued inpatient care CODE STATUS: FULL CODE Visit type - Emergency Visit Emergency Visit: Yes ED Registration Date: 10/07/17 Care time: The patient presented to the Emergency Department on the above date and was hospitalized for further evaluation of their emergent condition. - New Patient This patient is new to me today: No - Critical Care Critical Care patient: No
[2017-10-16] MEDS ORDERED: POTASSIUM CHLORIDE TABS 20 MEQ TABLET.ER (FP) PO ONE (10:15)
--- NOTE | 2017-10-16 10:18 | PN ---
Progress Note, Physician Chief Complaint: ID Oral vancomcyin and IV metronidazole Today she is better more alert NO diarrhea today - Current Medication List Current Medications: Active Medications Acetaminophen (Tylenol -) 650 mg PO Q4H PRN PRN Reason: PAIN OR FEVER Last Admin: 10/15/17 00:05 Dose: 650 mg Atorvastatin Calcium (Lipitor -) 20 mg PO HS [facility] Last Admin: 10/15/17 21:36 Dose: 20 mg Baclofen (Lioresal -) 10 mg PO BID [facility] Last Admin: 10/16/17 09:09 Dose: 10 mg Cholecalciferol (Vitamin D3 -) 2,000 unit PO DAILY [facility] Last Admin: 10/16/17 09:07 Dose: 2,000 unit Docusate Sodium (Colace -) 100 mg PO TID [facility] Last Admin: 10/16/17 06:32 Dose: Not Given Duloxetine HCl (Cymbalta -) 60 mg PO DAILY [facility] Last Admin: 10/16/17 09:07 Dose: 60 mg Enoxaparin Sodium (Lovenox -) 30 mg SQ DAILY [facility] Last Admin: 10/16/17 09:07 Dose: 30 mg Sodium Chloride (Normal Saline -) 1,000 mls @ 83 mls/hr IV [facility] Last Admin: 10/16/17 09:07 Dose: 83 mls/hr Metronidazole (Flagyl 500mg Premixed Ivpb -) 500 mg in 100 mls @ 100 mls/hr IVPB Q8H-IV [facility] Last Admin: 10/16/17 09:08 Dose: 100 mls/hr Non-Formulary Medication (Teriflunomide [Aubagio]) 7 mg PO DAILY [facility] Last Admin: 10/15/17 11:17 Dose: 7 mg Ondansetron HCl (Zofran Injection) 4 mg IVPUSH Q6H PRN PRN Reason: NAUSEA AND/OR VOMITING Last Admin: 10/14/17 15:13 Dose: 4 mg Ondansetron HCl (Zofran Injection) 4 mg IVPUSH Q4H PRN PRN Reason: NAUSEA Pantoprazole Sodium (Protonix -) 40 mg PO DAILY [facility] Last Admin: 10/16/17 09:07 Dose: 40 mg Potassium Chloride (K-Dur -) 40 meq PO ONCE ONE Stop: 10/16/17 10:16 Promethazine HCl (Phenergan Injection -) 12.5 mg IVPUSH Q6H PRN PRN Reason: NAUSEA-FOR RESCUE AFTER 15 MIN Vancomycin HCl (Vancomycin Oral Solution) 125 mg PO Q6HPO [facility] Last Admin: 10/16/17 06:32 Dose: 125 mg - Objective Vital Signs: Vital Signs Temperature 97.9 F 10/16/17 04:56 Pulse Rate 98 H 10/16/17 04:56 Respiratory Rate 20 10/16/17 04:56 Blood Pressure 140/79 10/16/17 04:56 O2 Sat by Pulse Oximetry (%) 97 10/15/17 21:00 Cardiovascular: Yes: S1, S2 Respiratory: Yes: WNL, Regular, CTA Bilaterally Gastrointestinal: Yes: WNL, Normal Bowel Sounds, Soft. No: Tenderness Labs: CBC, BMP 10/16/17 06:30 10/16/17 06:30 INR, PTT INR 1.05 (0.82-1.09) 10/07/17 11:50 Problem List - Problems (1) Fever Code(s): R50.9 - FEVER, UNSPECIFIED (2) Anemia Code(s): D64.9 - ANEMIA, UNSPECIFIED Qualifiers: Anemia type: unspecified type Qualified Code(s): D64.9 - Anemia, unspecified (3) Femoral fracture Code(s): S72.90XA - UNSP FRACTURE OF UNSP FEMUR, INIT ENCNTR FOR CLOSED FRACTURE Qualifiers: Encounter type: initial encounter Femur location: shaft Fracture type: closed Fracture morphology: transverse Fracture alignment: displaced Laterality: right Qualified Code(s): S72.321A - Displaced transverse fracture of shaft of right femur, initial encounter for closed fracture Assessment/Plan Microbiology 10/15/17 12:34 Nasopharyngeal Aspirate Influenza Types A,B Antigen (JENNIFER) - Final 10/15/17 12:34 Nasopharyngeal Aspirate - Final 10/15/17 10:25 Stool Clostridium difficile Antigen (JENNIFER) - Final 10/15/17 10:25 Stool Clostridium difficile Toxin Assay - Final 10/14/17 16:45 Blood - Peripheral Venous Blood Culture - Preliminary NO GROWTH OBTAINED AFTER 24 HOURS, INCUBATION TO CONTINUE FOR 4 DAYS. 10/14/17 15:30 Blood - Peripheral Venous Blood Culture - Preliminary NO GROWTH OBTAINED AFTER 24 HOURS, INCUBATION TO CONTINUE FOR 4 DAYS. Laboratory Tests 0210/16/17 10/16/17 07:00 06:30 06:30 WBC 17.5 H Hgb 11.6 10.5 L Hct 32.0 L Plt Count 310 314 BUN 10 Creat Clearance w eGFR > 60 Assessment Infection with C difficile toxin pos Improving Plan Continue dual therapy C diff Jose TORRES
[2017-10-16] MEDS: TERIFLUNOMIDE 7 MG PO SCH (10:20)
[2017-10-16] MEDS: ATORVASTATIN CA 20 MG TABLET (FP) PO SCH (21:58)
[2017-10-17] MEDS: VANCOMYCIN 250 MG/5 ML ORAL SOLUTION PO SCH ×4 (00:10→17:58)
[2017-10-17] MEDS: DOCUSATE SODIUM 100 MG CAPSULE (FP) PO SCH ×2 (05:51→13:59)
[2017-10-17 07:26] LABS: HEMATOCRIT 33.2 % (32.4-45.2); HEMOGLOBIN 10.9 GM/dL (10.7-15.3); MCH 27.4 pg (25.7-33.7); MCHC 32.7 g/dl (32.0-36.0); MEAN CELL VOLUME 83.8 fl (80-96); MEAN PLT VOLUME 7.7 fl (7.5-11.1); PLATELET COUNT 405 K/MM3 (134-434); RBC 3.97 M/mm3 (3.60-5.2); RDW 17.9 % (11.6-15.6)
[2017-10-17 07:57] LABS: ALBUMIN 2.1 g/dl (3.4-5.0); ANION GAP 12 (8-16); BLOOD UREA NITROGEN 8 mg/dL (7-18); CALCIUM 7.5 mg/dL (8.5-10.1); CHLORIDE 106 mmol/L (98-107); CO2 21 mmol/L (21-32); CREATININE 0.5 mg/dL (0.55-1.02); GLUCOSE,RANDOM 84 mg/dL (74-106); POTASSIUM 3.3 mmol/L (3.5-5.1); SGOT/AST 22 U/L (15-37); SGPT/ALT 17 U/L (12-78); SODIUM 139 mmol/L (136-145)
[2017-10-17 07:58] LABS: ALK PHOS 127 U/L (45-117); BILIRUBIN,TOTAL 0.7 mg/dL (0.2-1.0); TOT PROT 4.5 g/dl (6.4-8.2)
--- NOTE | 2017-10-17 08:16 | PN ---
Progress Note (short form) - Note Progress Note: Subjective: The patient was seen and examined at the bedside, she has no complaints at this time. She reports having one bowel movement this morning but does not know if it was diarrhea WBC 12 today Current Medications Generic Name Dose Route Start Last Admin Trade Name Freq PRN Reason Stop Dose Admin Acetaminophen 650 mg 10/10/17 17:13 10/15/17 00:05 Tylenol - PO 650 mg Q4H PRN Administration PAIN OR FEVER Atorvastatin Calcium 20 mg 10/10/17 22:00 10/16/17 21:58 Lipitor - PO 20 mg HS SEAMUS Administration Baclofen 10 mg 10/10/17 22:00 10/16/17 21:58 Lioresal - PO 10 mg BID SEAMUS Administration Cholecalciferol 2,000 unit 10/11/17 10:00 10/16/17 09:07 Vitamin D3 - PO 2,000 unit DAILY SEAMUS Administration Docusate Sodium 100 mg 10/10/17 22:00 10/17/17 05:51 Colace - PO 100 mg TID SEAMUS Administration Duloxetine HCl 60 mg 10/11/17 10:00 10/16/17 09:07 Cymbalta - PO 60 mg DAILY SEAMUS Administration Enoxaparin Sodium 30 mg 10/14/17 15:00 10/16/17 09:07 Lovenox - SQ 30 mg DAILY SEAMUS Administration Sodium Chloride 1,000 mls @ 83 mls/hr 10/15/17 09:00 10/16/17 09:07 Normal Saline - IV 83 mls/hr ASDIR SEAMUS Administration Metronidazole 500 mg in 100 mls @ 100 mls/hr 10/15/17 12:28 10/17/17 01:28 Flagyl 500mg Premixed Ivpb - IVPB 100 mls/hr Q8H-IV SEAMUS Administration Non-Formulary Medication 7 mg 10/11/17 10:00 10/16/17 10:20 Teriflunomide [Aubagio] PO 7 mg DAILY SEAMUS Administration Ondansetron HCl 4 mg 10/10/17 17:06 10/14/17 15:13 Zofran Injection IVPUSH 4 mg Q6H PRN Administration NAUSEA AND/OR VOMITING Ondansetron HCl 4 mg 10/10/17 17:13 Zofran Injection IVPUSH Q4H PRN NAUSEA Pantoprazole Sodium 40 mg 10/13/17 10:00 10/16/17 09:07 Protonix - PO 40 mg DAILY SEAMUS Administration Promethazine HCl 12.5 mg 10/10/17 17:06 Phenergan Injection - IVPUSH Q6H PRN NAUSEA-FOR RESCUE AFTER 15 MIN Vancomycin HCl 125 mg 10/15/17 12:26 10/17/17 05:51 Vancomycin Oral Solution PO 125 mg Q6HPO SEAMUS Administration Objective: Vital Signs Period Temp Pulse Resp BP Sys/Obrien Pulse Ox Last 24 Hr 97.7 F-98.7 F 83-106 18-20 125-154/65-77 97-97 Physical Exam: General: NAD, A&Ox3 Lungs: CTA bilaterally HearT: RRR, S1S2, +murmur Abd: Soft, non-tender, non-distended. Normoactive bowel sounds Ext: RLE with lateral dressing, non-tenderness. Warm, well-perfused. 2+ DP/PT bilaterally CBCD WBC 12.0 K/mm3 (4.0-10.0) H D 10/17/17 06:35 RBC 3.97 M/mm3 (3.60-5.2) 10/17/17 06:35 Hgb 10.9 GM/dL (10.7-15.3) 10/17/17 06:35 Hct 33.2 % (32.4-45.2) 10/17/17 06:35 MCV 83.8 fl (80-96) 10/17/17 06:35 MCHC 32.7 g/dl (32.0-36.0) 10/17/17 06:35 RDW 17.9 % (11.6-15.6) H 10/17/17 06:35 Plt Count 405 K/MM3 (134-434) D 10/17/17 06:35 MPV 7.7 fl (7.5-11.1) 10/17/17 06:35 CMP Sodium 137 mmol/L (136-145) 10/16/17 06:30 Potassium 3.1 mmol/L (3.5-5.1) L 10/16/17 06:30 Chloride 106 mmol/L (98-107) 10/16/17 06:30 Carbon Dioxide 23 mmol/L (21-32) 10/16/17 06:30 Anion Gap 8 (8-16) 10/16/17 06:30 BUN 10 mg/dL (7-18) 10/16/17 06:30 Creatinine 0.6 mg/dL (0.55-1.02) 10/16/17 06:30 Creat Clearance w eGFR > 60 (>60) 10/16/17 06:30 Random Glucose 80 mg/dL (74-106) 10/16/17 06:30 Calcium 7.2 mg/dL (8.5-10.1) L 10/16/17 06:30 Total Bilirubin 0.8 mg/dL (0.2-1.0) 10/16/17 06:30 AST 29 U/L (15-37) 10/16/17 06:30 ALT 18 U/L (12-78) 10/16/17 06:30 Alkaline Phosphatase 115 U/L (45-117) 10/16/17 06:30 Total Protein 4.4 g/dl (6.4-8.2) L 10/16/17 06:30 Albumin 1.9 g/dl (3.4-5.0) L 10/16/17 06:30 CARDIAC ENZYMES Creatine Kinase 210 IU/L (26-192) H 10/09/17 07:30 Microbiology 10/14/17 16:45 Blood - Peripheral Venous Blood Culture - Preliminary NO GROWTH OBTAINED AFTER 48 HOURS, INCUBATION TO CONTINUE FOR 3 DAYS. 10/14/17 15:30 Blood - Peripheral Venous Blood Culture - Preliminary NO GROWTH OBTAINED AFTER 48 HOURS, INCUBATION TO CONTINUE FOR 3 DAYS. 10/15/17 12:34 Nasopharyngeal Aspirate Influenza Types A,B Antigen (JENNIFER) - Final 10/15/17 12:34 Nasopharyngeal Aspirate - Final 10/15/17 10:25 Stool Clostridium difficile Antigen (JENNIFER) - Final 10/15/17 10:25 Stool Clostridium difficile Toxin Assay - Final 10/07/17 13:33 Blood - Peripheral Venous Blood Culture - Final NO GROWTH AFTER 5 DAYS INCUBATION 10/07/17 13:33 Blood - Peripheral Venous Blood Culture - Final NO GROWTH AFTER 5 DAYS INCUBATION 10/07/17 12:27 Urine - Urine Clean Catch Urine Culture - Final Lactobacillus Species Assessment: This is a 76 year old female with PMHx of MS (uses rolling walker at home), HTN, s/p right THR c/b prosthetic dislocation in 2014 admitted s/p fall with resulting right hip fracture. Plan: 1) C.diff Ag and toxin positive - WBC continue to trend down - Continue po vancomycin and IV flagyl (2/3- ) - Appreciate ID consult 2) Periprosthetic right femur fracture - S/p right ORIF on 10/10 - NWB, OOB to chair - Appreciate ortho consult 3) RLE swelling - RLE doppler negative for DVT 4) Acute GI bleed, guiac + - S/p EGD: few small gastric erosions. Gastric biopsies taken - Colonoscopy when can ambulate - S/p PRBC transfusions yesterday - Appreciate GI consult 5) Acute blood loss anemia - S/p PRBC transfusion 6) Vomiting - Resolved 7) AARON - Resolved 8) Hyperlipidemia: - Continue Zocor 9) MS - Continue Aubgio - Continue Baclofen 10) F/E/N: - Regular diet - Monitor electrolytes 11) Prophylaxis: - Lovenox 30mg sq daily 12) Dispo: - Requires continued inpatient care CODE STATUS: FULL CODE
[2017-10-17] MEDS ORDERED: POTASSIUM CHLORIDE TABS 20 MEQ TABLET.ER (FP) PO ONE (09:00)
[2017-10-17] MEDS: ENOXAPARIN NA (PORCINE) 30 MG/0.3 ML DISP.SYRIN SQ SCH (09:14)
[2017-10-17] MEDS: CHOLECALCIFEROL (VITAMIN D3) 1,000 UNIT TABLET (FP) PO SCH (09:14)
[2017-10-17] MEDS: PANTOPRAZOLE 40 MG TABLET (FP) PO SCH (09:14)
[2017-10-17] MEDS: BACLOFEN 10 MG TABLET (FP) PO SCH (09:15)
[2017-10-17] MEDS: DULoxetine HCL 30 MG CAPSULE.DR (FP) PO SCH (09:15)
[2017-10-17] MEDS: TERIFLUNOMIDE 7 MG PO SCH (09:16)
--- NOTE | 2017-10-17 11:17 | PN ---
Progress Note, Physician Chief Complaint: ID NO further fevers and her diarrhea much improved Oral vancomycin and IV metronidazole - Current Medication List Current Medications: Active Medications Acetaminophen (Tylenol -) 650 mg PO Q4H PRN PRN Reason: PAIN OR FEVER Last Admin: 10/15/17 00:05 Dose: 650 mg Atorvastatin Calcium (Lipitor -) 20 mg PO HS [facility] Last Admin: 10/16/17 21:58 Dose: 20 mg Baclofen (Lioresal -) 10 mg PO BID [facility] Last Admin: 10/17/17 09:15 Dose: 10 mg Cholecalciferol (Vitamin D3 -) 2,000 unit PO DAILY [facility] Last Admin: 10/17/17 09:14 Dose: 2,000 unit Docusate Sodium (Colace -) 100 mg PO TID [facility] Last Admin: 10/17/17 05:51 Dose: 100 mg Duloxetine HCl (Cymbalta -) 60 mg PO DAILY [facility] Last Admin: 10/17/17 09:15 Dose: 60 mg Enoxaparin Sodium (Lovenox -) 30 mg SQ DAILY [facility] Last Admin: 10/17/17 09:14 Dose: 30 mg Sodium Chloride (Normal Saline -) 1,000 mls @ 83 mls/hr IV ASDIR [facility] Last Admin: 10/16/17 09:07 Dose: 83 mls/hr Non-Formulary Medication (Teriflunomide [Aubagio]) 7 mg PO DAILY [facility] Last Admin: 10/17/17 09:16 Dose: 7 mg Ondansetron HCl (Zofran Injection) 4 mg IVPUSH Q6H PRN PRN Reason: NAUSEA AND/OR VOMITING Last Admin: 10/14/17 15:13 Dose: 4 mg Ondansetron HCl (Zofran Injection) 4 mg IVPUSH Q4H PRN PRN Reason: NAUSEA Pantoprazole Sodium (Protonix -) 40 mg PO DAILY [facility] Last Admin: 10/17/17 09:14 Dose: 40 mg Promethazine HCl (Phenergan Injection -) 12.5 mg IVPUSH Q6H PRN PRN Reason: NAUSEA-FOR RESCUE AFTER 15 MIN Vancomycin HCl (Vancomycin Oral Solution) 125 mg PO Q6HPO [facility] Last Admin: 10/17/17 05:51 Dose: 125 mg - Objective Vital Signs: Vital Signs Temperature 97.8 F 10/17/17 09:31 Pulse Rate 88 10/17/17 09:31 Respiratory Rate 16 10/17/17 09:31 Blood Pressure 147/72 10/17/17 09:31 O2 Sat by Pulse Oximetry (%) 97 10/16/17 22:00 Constitutional: Yes: Well Nourished Eyes: Yes: WNL, Conjunctiva Clear HENT: Yes: WNL, Atraumatic Neck: Yes: WNL, Supple Cardiovascular: Yes: S1, S2 Respiratory: Yes: WNL, Regular, CTA Bilaterally Extremities: Yes: Other (Right hip dressing) Labs: CBC, BMP 10/17/17 06:35 10/17/17 06:35 INR, PTT INR 1.05 (0.82-1.09) 10/07/17 11:50 Problem List - Problems (1) Fever Code(s): R50.9 - FEVER, UNSPECIFIED (2) Anemia Code(s): D64.9 - ANEMIA, UNSPECIFIED Qualifiers: Anemia type: unspecified type Qualified Code(s): D64.9 - Anemia, unspecified (3) Femoral fracture Code(s): S72.90XA - UNSP FRACTURE OF UNSP FEMUR, INIT ENCNTR FOR CLOSED FRACTURE Qualifiers: Encounter type: initial encounter Femur location: shaft Fracture type: closed Fracture morphology: transverse Fracture alignment: displaced Laterality: right Qualified Code(s): S72.321A - Displaced transverse fracture of shaft of right femur, initial encounter for closed fracture Assessment/Plan Microbiology 10/15/17 12:34 Nasopharyngeal Aspirate Influenza Types A,B Antigen (JENNIFER) - Final 10/15/17 12:34 Nasopharyngeal Aspirate - Final 10/15/17 10:25 Stool Clostridium difficile Antigen (JENNIFER) - Final 10/15/17 10:25 Stool Clostridium difficile Toxin Assay - Final 10/14/17 16:45 Blood - Peripheral Venous Blood Culture - Preliminary NO GROWTH OBTAINED AFTER 48 HOURS, INCUBATION TO CONTINUE FOR 3 DAYS. 10/14/17 15:30 Blood - Peripheral Venous Blood Culture - Preliminary NO GROWTH OBTAINED AFTER 48 HOURS, INCUBATION TO CONTINUE FOR 3 DAYS. Laboratory Tests 10/15/17 10/17/17 10/17/17 07:00 06:35 06:35 WBC 21.8 H D 12.0 H D Hgb 10.9 Plt Count 405 D BUN 8 Creatinine 0.5 L Assessment Clostridium difficile infection better with treatment Plan Stop IV flagyl Oral vancomycin 125mg qid x 14 days Kindly recall as needed Jose TORRES
--- NOTE | 2017-10-17 12:47 | DS ---
Physical Examination Vital Signs: Vital Signs Temperature 97.8 F 10/17/17 09:31 Pulse Rate 88 10/17/17 09:31 Respiratory Rate 16 10/17/17 09:31 Blood Pressure 147/72 10/17/17 09:31 O2 Sat by Pulse Oximetry (%) 97 10/16/17 22:00 Labs: CBC, BMP 10/17/17 06:35 10/17/17 06:35 Discharge Summary Reason For Visit: FX OF FEMUR,ANEMIA Current Active Problems Anemia (Acute) Fall (Acute) Femoral fracture (Acute) Fever (Acute) GI bleed (Acute) Condition: Improved - Instructions Diet, Activity, Other Instructions: Please return to the ED with new, persistent, or worsening symptoms. Please follow-up with providers as indicated. Please have your CBC (white blood cell count) checked in 1-2 days. Continue Vancomycin 125mg four times a day Referrals: Trent Licea MD [Staff Physician] - (Please follow-up with Dr. Licea within 1 week for your gastric biopsy results and to schedule an outpatient colonoscopy.) Don De Paz MD [Staff Physician] - (Please follow-up with ortho within 3-5 days for further post op management. ) Baldo Delcid MD [Primary Care Provider] - 1 Week Disposition: [facility] - Home Medications Comprehensive Discharge Medication List: Ambulatory Orders Baclofen 10 mg PO BID 08/16/15 Simvastatin [Zocor -] 40 mg PO DAILY 08/16/15 Diazepam [Valium] 5 mg PO BID PRN 08/18/15 Teriflunomide [Aubagio] 7 mg PO DAILY 08/18/15 Calcium Citrate/Vitamin D3 [Citracal + D Caplet] 1 each PO DAILY 11/09/15 Cholecalciferol (Vitamin D3) [D3 Dots] 2,000 unit PO DAILY 11/09/15 Duloxetine HCl [Cymbalta] 60 mg PO DAILY 11/09/15 Acetaminophen [Tylenol .Regular Strength -] 650 mg PO Q4H PRN tablet 10/14/17 Docusate Sodium [Colace -] 100 mg PO TID capsule 10/14/17 Pantoprazole Sodium [Protonix -] 40 mg PO DAILY tablet.ec 10/14/17 Enoxaparin [Lovenox -] 30 mg SQ DAILY #30 disp.syrin 10/17/17 Vancomycin HCl 125 mg PO QID #48 capsule 10/17/17 - Discharge Referral Referred to [facility] No
[2017-10-17 14:16] VITALS: BP 145/72; PULSE 91; TEMP 97.5
[2017-10-17] MEDS ORDERED: PT OWN MED DRAWER 7, Y5N ONE (17:28)
== END 2017-10-17 19:11 | DRG 481 ==
LOC: JER 10:25 → JERBED 14:52 → J6S 22:19 → J4W 22:46 → J6S 23:04
PROVIDERS: ADMIT Internal Medicine; ATTEND Registered Nurse
PROC: 30233N1 Transfusion of Nonautologous Red Blood Cells into Peripheral Vein, Percutaneous Approach (ICD-10-PCS; 2017-10-07)
PROC: 30233R1 Transfusion of Nonautologous Platelets into Peripheral Vein, Percutaneous Approach (ICD-10-PCS; 2017-10-08)
PROC: 0QS804Z Reposition Right Femoral Shaft with Internal Fixation Device, Open Approach (ICD-10-PCS; principal; 2017-10-10 16:00)
PROC: 0DB68ZX Excision of Stomach, Via Natural or Artificial Opening Endoscopic, Diagnostic (ICD-10-PCS; 2017-10-13)
DX: S72.301A Unspecified fracture of shaft of right femur, initial encounter for closed fracture (principal); M97.01XA Periprosthetic fracture around internal prosthetic right hip joint, initial encounter; N17.9 Acute kidney failure, unspecified; K92.2 Gastrointestinal hemorrhage, unspecified; N39.0 Urinary tract infection, site not specified; D62 Acute posthemorrhagic anemia; A04.72 Enterocolitis due to Clostridium difficile, not specified as recurrent; I10 Essential (primary) hypertension; W18.39XA Other fall on same level, initial encounter; Y93.89 Activity, other specified; Y92.098 Other place in other non-institutional residence as the place of occurrence of the external cause; Y99.8 Other external cause status; E78.5 Hyperlipidemia, unspecified; F32.9 Major depressive disorder, single episode, unspecified; F41.9 Anxiety disorder, unspecified; F17.210 Nicotine dependence, cigarettes, uncomplicated; D50.9 Iron deficiency anemia, unspecified; G35 Multiple sclerosis; R00.0 Tachycardia, unspecified; R11.2 Nausea with vomiting, unspecified; R63.4 Abnormal weight loss; K29.60 Other gastritis without bleeding
CPT/HCPCS: 36415; 36430; 70450-TC; 71045-TC; 71260-TC; 72100-TC-FY; 73523-TC-FY; 73552-TC-RT-FY; 74177-TC; 80048; 80053; 81003; 81015; 82550; 82553; 82728; 83540; 83550; 83735; 85025; 85027; 85044; 85610; 85651; 86140; 86850; 86900; 86901; 86922; 87040; 87086; 87324; 87449; 87804; 88305-TC; 93005; 93010; 93971-TC; 94760; 97116-GP; 97161-GP; 99285-25; J0475; P9034; P9038; P9058

== ENCOUNTER 2021-12-13 11:50 | Inpatient (IN) | payer BC, OTHER ==
[2021-12-13] MEDS ORDERED: SODIUM CHLORIDE 0.9% 500 ML INFUS.BAG IV ONE (12:19)
[2021-12-13 12:51] LABS: BASO % 0.6 % (0-2.0); EOS % 0.5 % (0-4.5); HEMATOCRIT 32.3 % (32.4-45.2); HEMOGLOBIN 10.3 GM/dL (10.7-15.3); LYMPH % 10.3 % (8-40); MCH 23.8 pg (25.7-33.7); MCHC 31.9 g/dl (32.0-36.0); MEAN CELL VOLUME 74.7 fl (80-96); MEAN PLT VOLUME 7.3 fl (7.5-11.1); MONO % 3.9 % (3.8-10.2); NEUT % 84.7 % (42.8-82.8); PLATELET COUNT 310 10^3/uL (134-434); RBC 4.33 M/mm3 (3.60-5.2); RDW 16.1 % (11.6-15.6); VENOUS BASE EXCESS -1.6 mmol/L (-2-2); VENOUS O2 SATURATION 66.9 % (70-80); VENOUS PCO2 43.7 mmHg (38-52); VENOUS PH 7.356 (7.310-7.410); WHITE BLOOD COUNT 8.1 K/mm3 (4.0-10.0)
[2021-12-13 13:03] LABS: INR 1.02 (0.83-1.09); PROTHROMBIN TIME (PATIENT) 11.7 SEC (9.7-13.0)
[2021-12-13 13:06] LABS: ACTIVATED PTT 24.5 SECONDS (25.2-36.5)
[2021-12-13 13:10] LABS: CALCIUM 8.9 mg/dL (8.5-10.1)
[2021-12-13 13:11] LABS: ALBUMIN 2.8 g/dl (3.4-5.0); BLOOD UREA NITROGEN 13.6 mg/dL (7-18)
[2021-12-13 13:14] LABS: CREATININE 0.9 mg/dL (0.55-1.3)
[2021-12-13 13:15] LABS: BILIRUBIN,TOTAL 0.4 mg/dL (0.2-1); TOT PROT 6.4 g/dl (6.4-8.2)
[2021-12-13 13:25] LABS: URINE APPEARANCE CLOUDY; URINE BILIRUBIN NEGATIVE (NEGATIVE); URINE COLOR STRAW; URINE GLUCOSE (UA) NEGATIVE (NEGATIVE); URINE KETONE NEGATIVE (NEGATIVE); URINE LEUK ESTERASE 4+ (NEGATIVE); URINE NITRITE NEGATIVE (NEGATIVE); URINE PROTEIN 100 (NEGATIVE); URINE UROBILINOGEN 0.2 mg/dL (0.2-1.0)
[2021-12-13 13:26] LABS: EPI CELLS 76.2 /uL (0-25.1); URINE BACTERIA 2640.4 /uL (0-1359); URINE RBC 200 /uL (0-23.9); URINE WBC 15010.8 /uL (0-25.8)
[2021-12-13] MEDS ORDERED: PIPERACILLIN/TAZOB 4.5 GM 4.5 GM in DEXTROSE 5%-WATER 100 ML IVPB ONE (13:36)
[2021-12-13] MEDS ORDERED: PIPERACILLIN/TAZOB 4.5 GM 4.5 GM/100 ML BAG IVPB ONE (13:41)
[2021-12-13] MEDS ORDERED: PANTOPRAZOLE SODIUM 40 MG VIAL IVPUSH ONE (18:03)
[2021-12-13] MEDS ORDERED: ONDANSETRON 4 MG/2 ML VIAL IVPUSH ONE (18:04)
[2021-12-13] MEDS ORDERED: ONDANSETRON 4 MG/2 ML VIAL IVPUSH PRN (18:04)
[2021-12-13] MEDS ORDERED: PIPERACILLIN/TAZOB 3.375 GM 3.375 GM/50 ML BAG IVPB ONE (18:13)
[2021-12-13] MEDS: DEXTROSE 5%-NORMAL SALINE 1,000 ML IV SCH (18:28)
[2021-12-13] MEDS: PIPERACILLIN/TAZOB 3.375 GM 3.375 GM in DEXTROSE 5%-WATER - 50 ML IVPB SCH (18:28)
[2021-12-13] MEDS ORDERED: PANTOPRAZOLE SODIUM 40 MG VIAL ONE (18:30)
[2021-12-13] MEDS ORDERED: ONDANSETRON 4 MG/2 ML VIAL ONE (18:30)
[2021-12-13] MEDS ORDERED: BACLOFEN 10 MG TABLET (FP) PO SCH (22:00)
[2021-12-13] MEDS ORDERED: PIPERACILLIN/TAZOB 3.375 GM 3.375 GM in DEXTROSE 5%-WATER - 50 ML IVPB SCH (22:00)
[2021-12-13 22:27] VITALS: BMI 14.1
[2021-12-14] MEDS ORDERED: PIPERACILLIN/TAZOBACTAM 3.375 GM VIAL IVPB ONE ×2 (01:38→09:36)
[2021-12-14] MEDS ORDERED: DEXTROSE 5%-WATER - 50 ML IVPB ONE ×3 (01:39→14:59)
[2021-12-14] MEDS: PIPERACILLIN/TAZOB 3.375 GM 3.375 GM in DEXTROSE 5%-WATER - 50 ML IVPB SCH ×2 (01:53→09:38)
[2021-12-14] MEDS: PANTOPRAZOLE SODIUM 40 MG VIAL IVPUSH SCH (09:38)
[2021-12-14] MEDS: ENOXAPARIN NA (PORCINE) 30 MG/0.3 ML DISP.SYRIN SQ SCH (09:38)
[2021-12-14 10:28] LABS: BLOOD UREA NITROGEN 18.2 mg/dL (7-18); CALCIUM 9.1 mg/dL (8.5-10.1)
[2021-12-14 10:29] LABS: MAGNESIUM 2.1 mg/dL (1.8-2.4)
[2021-12-14 10:32] LABS: BASO % 0.5 % (0-2.0); EOS % 0.5 % (0-4.5); HEMATOCRIT 31.5 % (32.4-45.2); HEMOGLOBIN 10.2 GM/dL (10.7-15.3); LYMPH % 7.9 % (8-40); MCH 23.9 pg (25.7-33.7); MCHC 32.2 g/dl (32.0-36.0); MEAN CELL VOLUME 74.3 fl (80-96); MEAN PLT VOLUME 7.5 fl (7.5-11.1); MONO % 8.6 % (3.8-10.2); NEUT % 82.5 % (42.8-82.8); PLATELET COUNT 333 10^3/uL (134-434); RBC 4.24 M/mm3 (3.60-5.2); RDW 16.3 % (11.6-15.6); WHITE BLOOD COUNT 9.9 K/mm3 (4.0-10.0)
[2021-12-14 10:33] LABS: BILIRUBIN,TOTAL 0.8 mg/dL (0.2-1)
[2021-12-14 10:34] LABS: TOT PROT 6.1 g/dl (6.4-8.2)
[2021-12-14] MEDS: NICOTINE 21 MG/24 HOURS TOPICAL PATCH TD SCH (13:40)
[2021-12-14] MEDS ORDERED: cefTRIAXone SODIUM 1 GM VIAL ONE (14:59)
[2021-12-14] MEDS: CEFTRIAXONE 1 GM in DEXTROSE 5%-WATER - 50 ML IVPB SCH (15:05)
[2021-12-14] MEDS ORDERED: PIPERACILLIN/TAZOB 3.375 GM 3.375 GM in DEXTROSE 5%-WATER - 50 ML IVPB ONE (18:00)
[2021-12-14] MEDS: DEXTROSE 5%-NORMAL SALINE 1,000 ML IV SCH (21:15)
[2021-12-14] MEDS: BACLOFEN 10 MG TABLET (FP) PO SCH (21:16)
[2021-12-15 08:57] LABS: BASO % 0.4 % (0-2.0); EOS % 0.2 % (0-4.5); HEMATOCRIT 30.6 % (32.4-45.2); HEMOGLOBIN 9.8 GM/dL (10.7-15.3); LYMPH % 8.1 % (8-40); MEAN CELL VOLUME 74.9 fl (80-96); MEAN PLT VOLUME 7.4 fl (7.5-11.1); MONO % 6.4 % (3.8-10.2); NEUT % 84.9 % (42.8-82.8); PLATELET COUNT 339 10^3/uL (134-434); RBC 4.09 M/mm3 (3.60-5.2); RDW 16.5 % (11.6-15.6); WHITE BLOOD COUNT 8.9 K/mm3 (4.0-10.0)
[2021-12-15 09:47] LABS: CALCIUM 9.3 mg/dL (8.5-10.1)
[2021-12-15 09:48] LABS: ALBUMIN 2.9 g/dl (3.4-5.0); BLOOD UREA NITROGEN 20.2 mg/dL (7-18)
[2021-12-15 09:52] LABS: BILIRUBIN,TOTAL 0.5 mg/dL (0.2-1)
[2021-12-15 09:53] LABS: TOT PROT 6.2 g/dl (6.4-8.2)
[2021-12-15] MEDS ORDERED: DEXTROSE 5%-WATER - 50 ML IVPB ONE (09:53)
[2021-12-15] MEDS ORDERED: cefTRIAXone SODIUM 1 GM VIAL ONE (09:53)
[2021-12-15] MEDS: BACLOFEN 10 MG TABLET (FP) PO SCH ×2 (09:55→22:14)
[2021-12-15] MEDS: MULTIVITAMINS (DAILY MVI) TABLET (FP) PO SCH (09:55)
[2021-12-15] MEDS: CEFTRIAXONE 1 GM in DEXTROSE 5%-WATER - 50 ML IVPB SCH (09:55)
[2021-12-15] MEDS: NICOTINE 21 MG/24 HOURS TOPICAL PATCH TD SCH (09:55)
[2021-12-15] MEDS: PANTOPRAZOLE SODIUM 40 MG VIAL IVPUSH SCH (09:55)
[2021-12-15] MEDS: DULoxetine HCL 30 MG CAPSULE.DR PO SCH (09:55)
[2021-12-15] MEDS: ENOXAPARIN NA (PORCINE) 30 MG/0.3 ML DISP.SYRIN SQ SCH (09:55)
[2021-12-16 07:20] LABS: BASO % 0.3 % (0-2.0); EOS % 0.5 % (0-4.5); HEMATOCRIT 29.7 % (32.4-45.2); HEMOGLOBIN 9.8 GM/dL (10.7-15.3); LYMPH % 8.1 % (8-40); MCH 24.3 pg (25.7-33.7); MCHC 32.9 g/dl (32.0-36.0); MEAN CELL VOLUME 73.8 fl (80-96); MEAN PLT VOLUME 7.2 fl (7.5-11.1); MONO % 8.7 % (3.8-10.2); NEUT % 82.4 % (42.8-82.8); PLATELET COUNT 296 10^3/uL (134-434); RBC 4.03 M/mm3 (3.60-5.2); RDW 15.9 % (11.6-15.6); WHITE BLOOD COUNT 8.7 K/mm3 (4.0-10.0)
[2021-12-16 07:40] LABS: CALCIUM 8.8 mg/dL (8.5-10.1); MAGNESIUM 2.1 mg/dL (1.8-2.4)
[2021-12-16 07:41] LABS: ALBUMIN 2.4 g/dl (3.4-5.0); BLOOD UREA NITROGEN 21.6 mg/dL (7-18)
[2021-12-16 07:44] LABS: CREATININE 0.9 mg/dL (0.55-1.3)
[2021-12-16 07:45] LABS: BILIRUBIN,TOTAL 0.3 mg/dL (0.2-1); TOT PROT 5.7 g/dl (6.4-8.2)
[2021-12-16] MEDS: ENOXAPARIN NA (PORCINE) 30 MG/0.3 ML DISP.SYRIN SQ SCH (10:31)
[2021-12-16] MEDS ORDERED: cefTRIAXone SODIUM 1 GM VIAL ONE ×2 (10:58)
[2021-12-16] MEDS ORDERED: DEXTROSE 5%-WATER - 50 ML IVPB ONE (10:59)
[2021-12-16] MEDS: NICOTINE 21 MG/24 HOURS TOPICAL PATCH TD SCH (11:01)
[2021-12-16] MEDS: MULTIVITAMINS (DAILY MVI) TABLET (FP) PO SCH (11:01)
[2021-12-16] MEDS: DULoxetine HCL 30 MG CAPSULE.DR PO SCH (11:01)
[2021-12-16] MEDS: BACLOFEN 10 MG TABLET (FP) PO SCH ×2 (11:01→22:22)
[2021-12-16] MEDS: CEFTRIAXONE 1 GM in DEXTROSE 5%-WATER - 50 ML IVPB SCH (11:01)
[2021-12-16] MEDS: PANTOPRAZOLE SODIUM 40 MG VIAL IVPUSH SCH (11:11)
[2021-12-17 09:03] LABS: BASO % 0.4 % (0-2.0); EOS % 0.8 % (0-4.5); HEMATOCRIT 29.9 % (32.4-45.2); HEMOGLOBIN 9.6 GM/dL (10.7-15.3); MCH 23.9 pg (25.7-33.7); MCHC 32.1 g/dl (32.0-36.0); MEAN CELL VOLUME 74.6 fl (80-96); MEAN PLT VOLUME 7.4 fl (7.5-11.1); MONO % 9.3 % (3.8-10.2); NEUT % 80.5 % (42.8-82.8); PLATELET COUNT 321 10^3/uL (134-434); RBC 4.01 M/mm3 (3.60-5.2); RDW 16.4 % (11.6-15.6)
[2021-12-17 09:30] LABS: ALBUMIN 2.4 g/dl (3.4-5.0); CALCIUM 8.9 mg/dL (8.5-10.1); MAGNESIUM 2.2 mg/dL (1.8-2.4)
[2021-12-17 09:33] LABS: CREATININE 0.8 mg/dL (0.55-1.3)
[2021-12-17 09:35] LABS: BILIRUBIN,TOTAL 0.4 mg/dL (0.2-1); TOT PROT 5.8 g/dl (6.4-8.2)
[2021-12-17] MEDS ORDERED: cefTRIAXone SODIUM 1 GM VIAL ONE (09:42)
[2021-12-17] MEDS ORDERED: DEXTROSE 5%-WATER - 50 ML IVPB ONE (09:43)
[2021-12-17] MEDS: ENOXAPARIN NA (PORCINE) 30 MG/0.3 ML DISP.SYRIN SQ SCH (09:50)
[2021-12-17] MEDS: MULTIVITAMINS (DAILY MVI) TABLET (FP) PO SCH (09:50)
[2021-12-17] MEDS: BACLOFEN 10 MG TABLET (FP) PO SCH ×2 (09:50→21:35)
[2021-12-17] MEDS: NICOTINE 21 MG/24 HOURS TOPICAL PATCH TD SCH (09:50)
[2021-12-17] MEDS: DULoxetine HCL 30 MG CAPSULE.DR PO SCH (09:50)
[2021-12-17] MEDS: CEFTRIAXONE 1 GM in DEXTROSE 5%-WATER - 50 ML IVPB SCH (09:51)
[2021-12-17] MEDS: PANTOPRAZOLE SODIUM 40 MG VIAL IVPUSH SCH (09:51)
[2021-12-17] MEDS: TERIFLUNOMIDE 7 MG PO SCH (10:08)
[2021-12-17] MEDS: DOXYCYCLINE HYCLATE 100 MG CAPSULE PO SCH (17:13)
[2021-12-17] MEDS: methylPREDNISolone NA SUCC 125 MG/2 ML VIAL IVPB SCH (21:35)
[2021-12-18] MEDS: methylPREDNISolone NA SUCC 125 MG/2 ML VIAL IVPB SCH ×4 (02:45→21:36)
[2021-12-18 07:55] LABS: BASO % 0.2 % (0-2.0); HEMATOCRIT 32.7 % (32.4-45.2); HEMOGLOBIN 10.9 GM/dL (10.7-15.3); LYMPH % 8.2 % (8-40); MCH 24.4 pg (25.7-33.7); MCHC 33.4 g/dl (32.0-36.0); MEAN CELL VOLUME 73.2 fl (80-96); MEAN PLT VOLUME 7.2 fl (7.5-11.1); MONO % 1.1 % (3.8-10.2); NEUT % 90.5 % (42.8-82.8); PLATELET COUNT 399 10^3/uL (134-434); RBC 4.46 M/mm3 (3.60-5.2); RDW 16.5 % (11.6-15.6); WHITE BLOOD COUNT 3.8 K/mm3 (4.0-10.0)
[2021-12-18 08:05] LABS: ALBUMIN 2.8 g/dl (3.4-5.0); BLOOD UREA NITROGEN 26.2 mg/dL (7-18); CALCIUM 9.3 mg/dL (8.5-10.1); MAGNESIUM 2.3 mg/dL (1.8-2.4)
[2021-12-18 08:09] LABS: CREATININE 0.9 mg/dL (0.55-1.3)
[2021-12-18 08:10] LABS: TOT PROT 6.6 g/dl (6.4-8.2)
[2021-12-18 08:11] LABS: BILIRUBIN,TOTAL 0.3 mg/dL (0.2-1)
[2021-12-18] MEDS ORDERED: DEXTROSE 5%-WATER - 50 ML IVPB ONE (10:04)
[2021-12-18] MEDS ORDERED: cefTRIAXone SODIUM 1 GM VIAL ONE (10:04)
[2021-12-18] MEDS: TERIFLUNOMIDE 7 MG PO SCH (10:23)
[2021-12-18] MEDS: PANTOPRAZOLE SODIUM 40 MG VIAL IVPUSH SCH (10:23)
[2021-12-18] MEDS: NICOTINE 21 MG/24 HOURS TOPICAL PATCH TD SCH (10:24)
[2021-12-18] MEDS: DULoxetine HCL 30 MG CAPSULE.DR PO SCH (10:25)
[2021-12-18] MEDS: BACLOFEN 10 MG TABLET (FP) PO SCH ×2 (10:25→21:52)
[2021-12-18] MEDS: MULTIVITAMINS (DAILY MVI) TABLET (FP) PO SCH (10:25)
[2021-12-18] MEDS: DOXYCYCLINE HYCLATE 100 MG CAPSULE PO SCH ×2 (10:25→17:22)
[2021-12-18] MEDS: ENOXAPARIN NA (PORCINE) 30 MG/0.3 ML DISP.SYRIN SQ SCH (10:26)
[2021-12-18] MEDS: CEFTRIAXONE 1 GM in DEXTROSE 5%-WATER - 50 ML IVPB SCH (11:19)
[2021-12-18] MEDS: INSULIN SLIDING SCALE (NOVOLOG) 1 VIAL SQ SCH ×2 (16:29→16:33)
[2021-12-18] MEDS: AMINO ACIDS 4.25%/D5W 1,000 ML IV SCH (23:07)
[2021-12-19] MEDS: methylPREDNISolone NA SUCC 125 MG/2 ML VIAL IVPB SCH ×4 (02:13→21:06)
[2021-12-19] MEDS ORDERED: INSULIN (NOVOLOG) ASPART 100 UNITS/ML 10ML VIAL ONE (06:02)
[2021-12-19] MEDS: INSULIN SLIDING SCALE (NOVOLOG) 1 VIAL SQ SCH ×3 (06:25→17:00)
[2021-12-19] MEDS ORDERED: DEXTROSE 5%-WATER - 50 ML IVPB ONE (09:41)
[2021-12-19] MEDS ORDERED: cefTRIAXone SODIUM 1 GM VIAL ONE (09:41)
[2021-12-19] MEDS: CEFTRIAXONE 1 GM in DEXTROSE 5%-WATER - 50 ML IVPB SCH (09:46)
[2021-12-19] MEDS: NICOTINE 21 MG/24 HOURS TOPICAL PATCH TD SCH (09:46)
[2021-12-19] MEDS: DOXYCYCLINE HYCLATE 100 MG CAPSULE PO SCH (09:46)
[2021-12-19] MEDS: BACLOFEN 10 MG TABLET (FP) PO SCH ×2 (09:46→22:11)
[2021-12-19] MEDS: ENOXAPARIN NA (PORCINE) 30 MG/0.3 ML DISP.SYRIN SQ SCH (09:46)
[2021-12-19] MEDS: DULoxetine HCL 30 MG CAPSULE.DR PO SCH (09:46)
[2021-12-19] MEDS: MULTIVITAMINS (DAILY MVI) TABLET (FP) PO SCH (09:46)
[2021-12-19] MEDS: TERIFLUNOMIDE 7 MG PO SCH (09:47)
[2021-12-19 10:32] LABS: BASO % 0.1 % (0-2.0); HEMATOCRIT 32.3 % (32.4-45.2); HEMOGLOBIN 10.4 GM/dL (10.7-15.3); MCH 23.7 pg (25.7-33.7); MCHC 32.3 g/dl (32.0-36.0); MEAN CELL VOLUME 73.5 fl (80-96); MEAN PLT VOLUME 7.5 fl (7.5-11.1); MONO % 5.2 % (3.8-10.2); NEUT % 89.7 % (42.8-82.8); PLATELET COUNT 387 10^3/uL (134-434); RBC 4.39 M/mm3 (3.60-5.2); WHITE BLOOD COUNT 7.9 K/mm3 (4.0-10.0)
[2021-12-19 10:51] LABS: CALCIUM 9.1 mg/dL (8.5-10.1)
[2021-12-19 10:52] LABS: ALBUMIN 2.6 g/dl (3.4-5.0); BLOOD UREA NITROGEN 38.6 mg/dL (7-18); MAGNESIUM 2.2 mg/dL (1.8-2.4)
[2021-12-19 10:56] LABS: BILIRUBIN,TOTAL 0.2 mg/dL (0.2-1); CREATININE 0.9 mg/dL (0.55-1.3); TOT PROT 6.1 g/dl (6.4-8.2)
[2021-12-19] MEDS: PANTOPRAZOLE SODIUM 40 MG VIAL IVPUSH SCH (11:06)
[2021-12-19] MEDS: MEGESTROL ACETATE 20 MG TABLET PO SCH (15:55)
[2021-12-19] MEDS ORDERED: VANCOMYCIN/WATER FOR INJ (PEG) 750 MG/150 ML BAG IVPB ONE (17:00)
[2021-12-19] MEDS ORDERED: FAT EMULSION/OLIVE/SOY (CLINOLIPID) 250 ML EMULSION IV SCH (22:00)
[2021-12-19] MEDS: AMINO ACIDS 4.25%/D5W 1,000 ML IV SCH ×2 (22:17→22:26)
[2021-12-19] MEDS: FAT EMULSION/OLIVE/SOY/PHOSPHO 250 ML IV SCH (22:27)
[2021-12-20] MEDS: methylPREDNISolone NA SUCC 125 MG/2 ML VIAL IVPB SCH ×4 (03:28→21:00)
[2021-12-20] MEDS: INSULIN SLIDING SCALE (NOVOLOG) 1 VIAL SQ SCH ×3 (08:22→17:22)
[2021-12-20] MEDS: DULoxetine HCL 30 MG CAPSULE.DR PO SCH (09:02)
[2021-12-20] MEDS: ENOXAPARIN NA (PORCINE) 30 MG/0.3 ML DISP.SYRIN SQ SCH (09:03)
[2021-12-20] MEDS: BACLOFEN 10 MG TABLET (FP) PO SCH ×2 (09:03→21:04)
[2021-12-20] MEDS: MULTIVITAMINS (DAILY MVI) TABLET (FP) PO SCH (09:03)
[2021-12-20] MEDS: MEGESTROL ACETATE 20 MG TABLET PO SCH (09:03)
[2021-12-20] MEDS: NICOTINE 21 MG/24 HOURS TOPICAL PATCH TD SCH (09:04)
[2021-12-20] MEDS: TERIFLUNOMIDE 7 MG PO SCH (09:04)
[2021-12-20] MEDS: PANTOPRAZOLE SODIUM 40 MG VIAL IVPUSH SCH (09:52)
[2021-12-20 10:02] LABS: BASO % 0.1 % (0-2.0); HEMOGLOBIN 9.9 GM/dL (10.7-15.3); LYMPH % 7.5 % (8-40); MCH 23.9 pg (25.7-33.7); MEAN CELL VOLUME 74.8 fl (80-96); MEAN PLT VOLUME 7.8 fl (7.5-11.1); NEUT % 88.4 % (42.8-82.8); PLATELET COUNT 358 10^3/uL (134-434); RBC 4.15 M/mm3 (3.60-5.2); RDW 16.8 % (11.6-15.6); WHITE BLOOD COUNT 5.6 K/mm3 (4.0-10.0)
[2021-12-20 10:22] LABS: CALCIUM 8.4 mg/dL (8.5-10.1)
[2021-12-20 10:23] LABS: ALBUMIN 2.3 g/dl (3.4-5.0); BLOOD UREA NITROGEN 43.3 mg/dL (7-18)
[2021-12-20 10:26] LABS: CREATININE 0.8 mg/dL (0.55-1.3)
[2021-12-20 10:28] LABS: BILIRUBIN,TOTAL 0.5 mg/dL (0.2-1); TOT PROT 5.7 g/dl (6.4-8.2)
[2021-12-20] MEDS ORDERED: INSULIN (NOVOLOG) ASPART 100 UNITS/ML 10ML VIAL ONE (11:23)
[2021-12-20] MEDS ORDERED: FUROSEMIDE 40 MG/4 ML INJECTABLE VIAL IVPUSH ONE ×2 (17:55)
[2021-12-20 17:59] LABS: ARTERIAL BLD GAS O2 SATURATION 89.3 % (95-98); ARTERIAL BLOOD GAS BASE EXCESS -9.1 mmol/L (-2-2); ARTERIAL BLOOD GAS PO2 69.6 mmHg (80-100)
[2021-12-20] MEDS ORDERED: VANCOMYCIN/WATER FOR INJ (PEG) 750 MG/150 ML BAG IVPB ONE (18:00)
[2021-12-20 18:08] LABS: ALLENS TEST POSITIVE
[2021-12-20 18:11] LABS: ARTERIAL BLOOD GAS pH 7.182 (7.350-7.450)
[2021-12-20 18:40] LABS: BASO % 0.3 % (0-2.0); HEMATOCRIT 34.4 % (32.4-45.2); HEMOGLOBIN 11.1 GM/dL (10.7-15.3); MCHC 32.2 g/dl (32.0-36.0); MEAN CELL VOLUME 74.6 fl (80-96); MEAN PLT VOLUME 7.4 fl (7.5-11.1); MONO % 8.8 % (3.8-10.2); NEUT % 76.9 % (42.8-82.8); PLATELET COUNT 451 10^3/uL (134-434); RBC 4.61 M/mm3 (3.60-5.2); RDW 17.1 % (11.6-15.6)
[2021-12-20] MEDS: KCL 10 MEQ IVPB 10 MEQ/100 ML INFUS.BAG IVPB SCH ×3 (18:46→22:13)
[2021-12-20 19:02] LABS: ALBUMIN 2.6 g/dl (3.4-5.0); BLOOD UREA NITROGEN 47.9 mg/dL (7-18); CALCIUM 8.4 mg/dL (8.5-10.1)
[2021-12-20 19:06] LABS: CREATININE 0.7 mg/dL (0.55-1.3)
[2021-12-20 19:07] LABS: BILIRUBIN,TOTAL 0.3 mg/dL (0.2-1); TOT PROT 6.1 g/dl (6.4-8.2)
[2021-12-20 20:13] LABS: BASO % 0.2 % (0-2.0); HEMATOCRIT 35.4 % (32.4-45.2); HEMOGLOBIN 11.1 GM/dL (10.7-15.3); LYMPH % 8.1 % (8-40); MCH 23.7 pg (25.7-33.7); MCHC 31.4 g/dl (32.0-36.0); MEAN CELL VOLUME 75.3 fl (80-96); MEAN PLT VOLUME 7.6 fl (7.5-11.1); NEUT % 84.7 % (42.8-82.8); PLATELET COUNT 480 10^3/uL (134-434); RDW 16.7 % (11.6-15.6); WHITE BLOOD COUNT 7.3 K/mm3 (4.0-10.0)
[2021-12-20] MEDS: FAT EMULSION/OLIVE/SOY/PHOSPHO 250 ML IV SCH (22:12)
[2021-12-20] MEDS: AMINO ACIDS 4.25%/D5W 1,000 ML IV SCH (22:22)
[2021-12-21] MEDS: methylPREDNISolone NA SUCC 125 MG/2 ML VIAL IVPB SCH ×4 (02:41→20:59)
[2021-12-21] MEDS: INSULIN SLIDING SCALE (NOVOLOG) 1 VIAL SQ SCH ×3 (06:08→16:44)
[2021-12-21] MEDS ORDERED: morphine SULFATE 4 MG/ML VIAL IVPB PRN (08:03)
[2021-12-21] MEDS: PANTOPRAZOLE SODIUM 40 MG VIAL IVPUSH SCH (09:16)
[2021-12-21] MEDS: ENOXAPARIN NA (PORCINE) 30 MG/0.3 ML DISP.SYRIN SQ SCH (09:16)
[2021-12-21] MEDS: MEGESTROL ACETATE 20 MG TABLET PO SCH (09:17)
[2021-12-21] MEDS: NICOTINE 21 MG/24 HOURS TOPICAL PATCH TD SCH (09:17)
[2021-12-21] MEDS: DULoxetine HCL 30 MG CAPSULE.DR PO SCH (09:17)
[2021-12-21] MEDS: BACLOFEN 10 MG TABLET (FP) PO SCH (09:17)
[2021-12-21] MEDS: MULTIVITAMINS (DAILY MVI) TABLET (FP) PO SCH (09:18)
[2021-12-21] MEDS: TERIFLUNOMIDE 7 MG PO SCH (09:18)
[2021-12-21] MEDS ORDERED: PIPERACILLIN/TAZOB 2.25 GM 2.25 GM in DEXTROSE 5%-WATER - 50 ML IVPB ONE (12:46)
[2021-12-21] MEDS ORDERED: AMINO ACIDS 4.25%/D5W 1,000 ML IV SCH (12:53)
[2021-12-21] MEDS ORDERED: MULTIVIT INJ. ADULT COMBO WITH VIT K 1 COMBO 10 ML VIAL IV SCH (13:30)
[2021-12-21 14:01] LABS: HEMATOCRIT 32.9 % (32.4-45.2); HEMOGLOBIN 10.1 GM/dL (10.7-15.3); MCH 23.6 pg (25.7-33.7); MCHC 30.6 g/dl (32.0-36.0); MEAN PLT VOLUME 7.8 fl (7.5-11.1); PLATELET COUNT 324 10^3/uL (134-434); RBC 4.28 M/mm3 (3.60-5.2); RDW 16.8 % (11.6-15.6); WHITE BLOOD COUNT 15.3 K/mm3 (4.0-10.0)
[2021-12-21] MEDS ORDERED: DEXTROSE 5%-WATER - 50 ML IVPB ONE ×2 (14:08→20:54)
[2021-12-21] MEDS ORDERED: PIPERACILLIN/TAZOBACTAM 2.25 GM VIAL IVPB ONE ×2 (14:08→20:54)
[2021-12-21 14:20] LABS: CALCIUM 8.5 mg/dL (8.5-10.1)
[2021-12-21 14:21] LABS: ALBUMIN 2.3 g/dl (3.4-5.0)
[2021-12-21 14:24] LABS: CREATININE 1.4 mg/dL (0.55-1.3)
[2021-12-21 14:25] LABS: BILIRUBIN,TOTAL 0.3 mg/dL (0.2-1); TOT PROT 5.4 g/dl (6.4-8.2)
[2021-12-21] MEDS: PIPERACILLIN/TAZOB 2.25 GM 2.25 GM in DEXTROSE 5%-WATER - 50 ML IVPB SCH ×2 (14:27→20:59)
[2021-12-21 14:34] LABS: BLOOD UREA NITROGEN 79.7 mg/dL (7-18)
[2021-12-21] MEDS: FAT EMULSION/OLIVE/SOY/PHOSPHO 250 ML IV SCH (21:22)
[2021-12-21] MEDS: AMINO ACIDS 4.25%/D5W 1,000 ML IV SCH (21:23)
[2021-12-21] MEDS: MULTIVIT INJ. ADULT COMBO WITH VIT K 1 COMBO 10 ML VIAL IV SCH (21:25)
[2021-12-22] MEDS ORDERED: DEXTROSE 5%-WATER - 50 ML IVPB ONE ×4 (03:02→20:59)
[2021-12-22] MEDS ORDERED: PIPERACILLIN/TAZOBACTAM 2.25 GM VIAL IVPB ONE ×4 (03:02→20:59)
[2021-12-22] MEDS: PIPERACILLIN/TAZOB 2.25 GM 2.25 GM in DEXTROSE 5%-WATER - 50 ML IVPB SCH ×4 (03:08→21:05)
[2021-12-22] MEDS: methylPREDNISolone NA SUCC 125 MG/2 ML VIAL IVPB SCH ×3 (03:08→15:21)
[2021-12-22] MEDS: INSULIN SLIDING SCALE (NOVOLOG) 1 VIAL SQ SCH ×3 (06:20→17:25)
[2021-12-22 08:41] LABS: HEMOGLOBIN 10.1 GM/dL (10.7-15.3); MCH 24.6 pg (25.7-33.7); MCHC 32.5 g/dl (32.0-36.0); MEAN CELL VOLUME 75.6 fl (80-96); MEAN PLT VOLUME 7.9 fl (7.5-11.1); PLATELET COUNT 289 10^3/uL (134-434); RBC 4.09 M/mm3 (3.60-5.2); RDW 16.3 % (11.6-15.6); WHITE BLOOD COUNT 14.8 K/mm3 (4.0-10.0)
[2021-12-22 08:47] LABS: ALBUMIN 2.2 g/dl (3.4-5.0); BLOOD UREA NITROGEN 100.6 mg/dL (7-18)
[2021-12-22 08:49] LABS: CALCIUM 8.9 mg/dL (8.5-10.1); CREATININE 1.6 mg/dL (0.55-1.3)
[2021-12-22 08:51] LABS: BILIRUBIN,TOTAL 0.4 mg/dL (0.2-1); TOT PROT 5.3 g/dl (6.4-8.2)
[2021-12-22 09:28] LABS: ANISOCYTOSIS 1+; PLATELET ESTIMATE ADEQUATE; TEAR DROP CELLS 1+
[2021-12-22] MEDS: NICOTINE 21 MG/24 HOURS TOPICAL PATCH TD SCH (10:13)
[2021-12-22] MEDS: ENOXAPARIN NA (PORCINE) 30 MG/0.3 ML DISP.SYRIN SQ SCH (10:13)
[2021-12-22] MEDS: PANTOPRAZOLE SODIUM 40 MG VIAL IVPUSH SCH (10:13)
[2021-12-22] MEDS: MULTIVIT INJ. ADULT COMBO WITH VIT K 1 COMBO 10 ML VIAL IV SCH (21:07)
[2021-12-22] MEDS: AMINO ACIDS 4.25%/D5W 1,000 ML IV SCH (21:12)
[2021-12-22] MEDS: FAT EMULSION/OLIVE/SOY/PHOSPHO 250 ML IV SCH (23:00)
[2021-12-23] MEDS ORDERED: PIPERACILLIN/TAZOBACTAM 2.25 GM VIAL IVPB ONE ×4 (02:05→22:31)
[2021-12-23] MEDS ORDERED: DEXTROSE 5%-WATER - 50 ML IVPB ONE ×4 (02:05→22:31)
[2021-12-23] MEDS: PIPERACILLIN/TAZOB 2.25 GM 2.25 GM in DEXTROSE 5%-WATER - 50 ML IVPB SCH ×4 (02:11→22:34)
[2021-12-23] MEDS: INSULIN SLIDING SCALE (NOVOLOG) 1 VIAL SQ SCH ×2 (06:08→15:19)
[2021-12-23] MEDS: PANTOPRAZOLE SODIUM 40 MG VIAL IVPUSH SCH (09:39)
[2021-12-23] MEDS: ENOXAPARIN NA (PORCINE) 30 MG/0.3 ML DISP.SYRIN SQ SCH (09:39)
[2021-12-23] MEDS: NICOTINE 21 MG/24 HOURS TOPICAL PATCH TD SCH (09:39)
[2021-12-23] MEDS: AMINO ACIDS 4.25%/D5W 1,000 ML IV SCH ×2 (17:11→22:33)
[2021-12-23] MEDS: FAT EMULSION/OLIVE/SOY/PHOSPHO 250 ML IV SCH (22:34)
[2021-12-23] MEDS: MULTIVIT INJ. ADULT COMBO WITH VIT K 1 COMBO 10 ML VIAL IV SCH (22:35)
[2021-12-24] MEDS ORDERED: DEXTROSE 5%-WATER - 50 ML IVPB ONE ×2 (02:00→09:42)
[2021-12-24] MEDS ORDERED: PIPERACILLIN/TAZOBACTAM 2.25 GM VIAL IVPB ONE ×2 (02:00→09:41)
[2021-12-24] MEDS: PIPERACILLIN/TAZOB 2.25 GM 2.25 GM in DEXTROSE 5%-WATER - 50 ML IVPB SCH ×2 (02:03→10:57)
[2021-12-24 08:29] VITALS: BP 99/43; PULSE 52; TEMP 97.3
[2021-12-24] MEDS: INSULIN SLIDING SCALE (NOVOLOG) 1 VIAL SQ SCH (08:48)
[2021-12-24] MEDS: ENOXAPARIN NA (PORCINE) 30 MG/0.3 ML DISP.SYRIN SQ SCH (10:56)
[2021-12-24] MEDS: PANTOPRAZOLE SODIUM 40 MG VIAL IVPUSH SCH (10:56)
[2021-12-24] MEDS: NICOTINE 21 MG/24 HOURS TOPICAL PATCH TD SCH (10:57)
== END 2021-12-24 11:50 | disposition expired | DRG 177 ==
LOC: JER 11:50 → JERBED 12:45 → J6S 19:52
PROVIDERS: ADMIT Internal Medicine; ATTEND Nurse Practitioner Family
DX: J69.0 Pneumonitis due to inhalation of food and vomit (principal); G93.41 Metabolic encephalopathy; E43 Unspecified severe protein-calorie malnutrition; G04.91 Myelitis, unspecified; J96.01 Acute respiratory failure with hypoxia; N39.0 Urinary tract infection, site not specified; Z68.1 Body mass index [BMI] 19.9 or less, adult; R64 Cachexia; G95.89 Other specified diseases of spinal cord; G82.20 Paraplegia, unspecified; N17.9 Acute kidney failure, unspecified; R62.7 Adult failure to thrive; Z96.643 Presence of artificial hip joint, bilateral; R68.0 Hypothermia, not associated with low environmental temperature; G35 Multiple sclerosis; E78.5 Hyperlipidemia, unspecified; I10 Essential (primary) hypertension; J44.9 Chronic obstructive pulmonary disease, unspecified; M54.50 Low back pain, unspecified; B95.2 Enterococcus as the cause of diseases classified elsewhere; B95.4 Other streptococcus as the cause of diseases classified elsewhere; D64.9 Anemia, unspecified; E87.5 Hyperkalemia; M21.372 Foot drop, left foot; M21.371 Foot drop, right foot; R26.81 Unsteadiness on feet; Z51.5 Encounter for palliative care; Z74.01 Bed confinement status; Z66 Do not resuscitate; Z78.9 Other specified health status
CPT/HCPCS: 36415; 36600; 70450-TC; 70552-TC; 71045-TC-FY; 72141-TC; 72142-TC; 80053; 81003; 82553; 82607; 82803; 82962; 83605; 83735; 84100; 84443; 84478; 84484; 85025; 85610; 85730; 86780; 86850; 86900; 86901; 87040; 87086; 87186; 93005; 93010; 94660; 94761; 97162-GP; 99285-25; C9803-CS; G0480; J0475; J8999; U0003; U0005